=== PATIENT | female | born 1955 | race American Indian/Alaskan Native ===

== ENCOUNTER 2018-02-09 14:47 | Inpatient (IN) | payer BC ==
[2018-02-09] MEDS ORDERED: NACL 0.9% 1000 ML 1,000 ML IV ONE ×2 (15:01→20:53)
--- NOTE | 2018-02-09 15:18 | Emergency Department Report ---
<DARY HEATON - Last Filed: 02/09/18 19:03> ED Abdominal Pain HPI - General Chief Complaint: Abdominal Pain Stated Complaint: BILE OBSTRUCTION/ABD PAIN Time Seen by Provider: 02/09/18 15:08 Source: patient Mode of arrival: Ambulatory Limitations: No Limitations - History of Present Illness Initial Comments: is a 63-year-old female who comes to the emergency room today complaining of abdominal pain. She was just discharged from [facility] today. She states that she is having ongoing pain so she came to [place] [address]. Patient tells me that she had a blockage for which she was admitted on . She tells me that she had a bowel movement today. I have called [facility] and was unable to reach anyone in medical records. However, I was able to reach the NEGRITO on the primary service that was caring for . The NEGRITO can be reached at [phone], this is a maintenance painter. The NEGRITO reports that the patient was in fact admitted for a bowel obstruction AND ILLEUS. She was managed conservatively with NG tube. She was decompressed over the weekend. General surgery was consulted. Patient had a bowel movement today WHICH THE PT TELLS ME WAS RUNNY. She tolerated clear li quids this morning. General surgery signed off her case and cleared her from a surgical standpoint. THe primary team discharged her to home with GI follow-up. When she was discharged she was given a prescription for tramadol. The NEGRITO reports that the patient was using Tylenol inpatient to manage her pain. NEGRITO ALSO REPORTS PT HAS HAD GERD AND WAS ON A PPI. SHE GOT A GI COCKTAIL EARLIER TODAY. A MED RECORD RELEASE FORM HAS BEEN FAXED TO [facility] BUT NO RESPONSE AND NOONE IS ANSWERING THE PHONE. HOME MEDS ALL SHE CAN REMEMBER IS METFORMIN- SHE STATES HER DAUGHTER HAS A LIST OF MEDS IN THE ARE. SHE ALSO STATES THAT SHE HAS HER DC PAPERS IN THE CAR. Of relevance is one patient presented to [facility] on the night of Thursday into Thursday she had severe abdominal pain. She had a CT scan that showed an obstruction. At that time she had been vomiting. MD Complaint: abdominal pain -: Gradual, days(s) Location: diffuse Radiation: none Migration to: no migration Quality: cramping Consistency: constant Improves With: nothing Worsens With: nothing Associated Symptoms: denies other symptoms (NONE AT THE CURRENT TIME) - Related Data LMP (females 10-50): other Allergies Allergy/AdvReac Type Severity Reaction Status Date / Time No Known Allergies Allergy Unverified 02/09/18 15:01 ED Review of Systems Comment: All other systems reviewed and negative Constitutional: denies: chills, fever Eyes: denies: eye pain ENT: denies: ear pain, throat pain Respiratory: denies: cough, orthopnea Cardiovascular: denies: palpitations Endocrine: denies: see HPI Gastrointestinal: as per HPI, abdominal pain. denies: nausea, vomiting, diarrhea, constipation, hematemesis Genitourinary: denies: urgency, dysuria, frequency, hematuria, discharge Musculoskeletal: denies: back pain Skin: denies: rash, lesions Neurological: denies: headache, weakness Psychiatric: denies: anxiety, depression Hematological/Lymphatic: denies: easy bleeding ED Past Medical Hx - Past Medical History Hx Hypertension: Yes Hx Diabetes: Yes Additional medical history: colon cancer 2007 - Surgical History Past Surgical History?: No - Family History Family history: no significant - Social History Smoking Status: Never Smoker ED Physical Exam - General Limitations: No Limitations General appearance: alert - Head Head exam: Present: atraumatic - Eye Eye exam: Present: normal appearance, PERRL Pupils: Present: normal accommodation - ENT ENT exam: Present: normal exam, mucous membranes moist - Neck Neck exam: Present: normal inspection - Respiratory Respiratory exam: Present: normal lung sounds bilaterally - Cardiovascular Cardiovascular Exam: Present: regular rate - GI/Abdominal GI/Abdominal exam: Present: soft, distended, normal bowel sounds - Rectal Rectal exam: Present: deferred - Extremities Exam Extremities exam: Present: normal inspection, full ROM - Back Exam Back exam: Present: normal inspection, full ROM - Neurological Exam Neurological exam: Present: alert, oriented X3 - Psychiatric Psychiatric exam: Present: normal affect, normal mood - Skin Skin exam: Present: warm, dry, intact ED Course - Reevaluation(s) Reevaluation #1: 02/09/18 19:03 [facility] Medical Decision Making - Lab Data Result diagrams: 02/09/18 15:06 02/09/18 15:06 - Radiology Data Radiology results: report reviewed, image reviewed - Medical Decision Making LABS NOTED UA NOTED ABD SERIES SUGGESTIVE OF BOWEL OBSTRUCTION K WAS 3.1 AND HAS BEEN REPLACED. [address] OF ABD W CONTRAST PLAN 1. OBSTRUCTION - ADMIT 2. NO ACUTE PROCESS- DC HOME- PT HAS TRAMADOL FROM [facility] A GI FOLLOW UP. - Differential Diagnosis RO BOWEL OBSTRUCTION OR ILLEUS ED Disposition Clinical Impression: Small bowel obstruction Abdominal pain Qualifiers: Abdominal location: generalized Qualified Code(s): R10.84 - Generalized abdominal pain Disposition: DC-09 OP ADMIT IP TO THIS HOSP Is pt being admited?: No Does the pt Need Aspirin: No Condition: Stable <MARIYA KOWALSKI - Last Filed: 02/09/18 21:33> ED Course - Reevaluation(s) Reevaluation #2: 02/09/18 20:50 Patient has been reexamined by me and patient is consolable with no signs of distress. Reevaluation #3: 02/09/18 20:51 Patient was notified that she has a small bowel obstruction and agrees to the admission plan of care. - Consultations Consultation #1: 02/09/18 20:51 Patient has been consulted with Dr. Garcia (general surgeon) about patient history, physical exam, and labs/CT results and agrees for admission with hospitalist and to place patient nothing by mouth with NG tube of 14 or 16 Turkish. ED Medical Decision Making - Lab Data Result diagrams: 02/09/18 15:06 02/09/18 15:06 - Medical Decision Making This is a 63-year-old female that was signed out to me by Flory Bustillos NP for pending CT results. Patient presents with a small bowel instruction. Obstruction. Patient was consulted with Dr. Garcia and accepted with Dr. Porras hospitalist. Patient put on nothing by mouth. Fluids border. IV fluid has been ordered. NG tube to low suction order. At time of admission, the patient does not seem toxic or ill in appearance. No acute signs of distress noted. Patient agrees to admission treatment plan of care. No further questions noted by the patient. ED Disposition Is pt being admited?: Yes Does the pt Need Aspirin: No <TERRELL MOONEY - Last Filed: 02/10/18 08:14> ED Review of Systems ROS: Stated complaint: BILE OBSTRUCTION/ABD PAIN Other details as noted in HPI ED Course Vital Signs 02/09/18 02/09/18 02/09/18 14:55 21:03 23:01 Temperature 97.9 F 98.5 F Pulse Rate 89 83 Respiratory 18 18 18 Rate Blood Pressure 137/87 Blood Pressure 137/92 [Left] O2 Sat by Pulse 96 97 Oximetry 02/09/18 23:20 Temperature Pulse Rate Respiratory 16 Rate Blood Pressure Blood Pressure [Left] O2 Sat by Pulse Oximetry ED Medical Decision Making - Lab Data Result diagrams: 02/10/18 04:13 02/10/18 04:13 Critical care attestation.: If time is entered above; I have spent that time in minutes in the direct care of this critically ill patient, excluding procedure time. ED Disposition Is pt being admited?: Yes
[2018-02-09 15:45] LABS: Basophils % (Auto) 0.2 % (0.0-1.8); Eosinophils # (Auto) 0.1 K/mm3 (0.0-0.4); Eosinophils % (Auto) 0.9 % (0.0-4.3); Hematocrit 44.7 % (30.3-42.9); Hemoglobin 15.3 gm/dl (10.1-14.3); Lymphocytes # (Auto) 1.2 K/mm3 (1.2-5.4); Mean Corpuscular HGB Conc 34 % (30-34); Mean Corpuscular Hemoglobin 32 pg (28-32); Mean Corpuscular Volume 93 fl (79-97); Monocytes # (Auto) 0.5 K/mm3 (0.0-0.8); Monocytes % (Auto) 8.3 % (0.0-7.3); Platelet Count 179 K/mm3 (140-440); Red Blood Count 4.83 M/mm3 (3.65-5.03); Red Cell Distribution Width 13.3 % (13.2-15.2)
[2018-02-09 16:05] LABS: Alanine Aminotransferase 11 units/L (7-56); Albumin 3.7 g/dL (3.9-5); BUN/Creatinine Ratio 16; Blood Urea Nitrogen 14 mg/dL (7-17); Calcium 8.6 mg/dL (8.4-10.2); Hemolysis Index 10
[2018-02-09] MEDS ORDERED: K-DUR PO ONE (16:08)
[2018-02-09] MEDS ORDERED: LIDOCAINE VISCOUS 2% PO ONE (16:14)
[2018-02-09] MEDS ORDERED: ALUM-MAG HYDROX-SIMETH 200-200-20MG/5ML PO ONE (16:14)
--- NOTE | 2018-02-09 16:52 | XRay Report ---
FINAL REPORT EXAM: XR ABD SERIES W CXR 1V HISTORY: abd pain TECHNIQUE: Abdomen supine and upright with frontal view of the chest PRIORS: None. FINDINGS: No acute pulmonary infiltrate identified. No pleural fluid collection seen. Cardiac and mediastinal c ontours are unremarkable There is marked small-bowel distention primary along the left side of the abdomen with appearing burger sition to the mid to lower small bowel. Small bowel loops measuring up to 5.7 centimeters with multip le fluid levels present. Findings are highly suspicious for small-bowel obstruction. There are no signs for free air Noted is a calcified uterine fibroid IMPRESSION: Findings most consistent acute small bowel obstruction.
[2018-02-09 17:17] LABS: Bilirubin,Urine NEG (Negative); Blood,Urine NEG (Negative); Color,Urine Amber (Yellow); Mucus,Urine FEW /HPF; Urobilinogen,Urine < 2.0 mg/dL (<2.0)
[2018-02-09] MEDS ORDERED: NACL 0.9% IV SCH (19:00)
--- NOTE | 2018-02-09 20:31 | Cat Scan Report ---
FINAL REPORT EXAM: CT ABDOMEN PELVIS W CON HISTORY: abdominal pain TECHNIQUE: CT abdomen and pelvis with intravenous contrast PRIORS: None. FINDINGS: No acute abnormality identified in the lung bases. No focal abnormality identified within the liver parenchyma. The spleen demonstrates normal size and attenuation. No pancreatic abnormalities seen. The kidneys demonstrate symmetric contrast enhancement. No evidence of hydronephrosis. The adrenal glands are unremarkable Abdominal aorta is normal in caliber. No pathologically enlarged lymph nodes are identified. No signs of free fluid or free air Stomach is distended there is fluid within the stomach. There is marked small-bowel distention from the duodenum through the mid to distal small bowel in the right upper quadrant where there is transition to smaller caliber bowel loops. The colon is nondiste nded There is small amount of ascites present within the abdomen. Colon is nondistended. No pericolonic inflammatory change. Urinary bladder is unremarkable. Calcified uterine fibroid is noted. IMPRESSION: Findings consistent with acute small bowel obstruction likely high-grade. There is transition to smal ler loops the point of transition is not definitively identified
[2018-02-09] MEDS ORDERED: MORPHINE IV PRN (20:53)
[2018-02-09] MEDS ORDERED: REGLAN IV PRN (21:40)
[2018-02-09] MEDS ORDERED: TYLENOL PR PRN (21:40)
[2018-02-09] MEDS ORDERED: SODIUM CHLORIDE FLUSH SYRINGE 10 ML IV PRN (21:40)
--- NOTE | 2018-02-09 21:51 | History and Physical Report ---
History of Present Illness Date of examination: 02/09/18 History of present illness: Scattered 4-year-old woman with a history of hypertension, diabetes, history of colon cancer comes to the emergency room with complaints of abdominal pain. She states she feels bloated. Abdominal pain is lower quadrant and at the sides of the abdomen, sharp, constant, no radiation, intensity 7/10, relieved with IV morphine. The patient was just discharged from [place] today, she was admitted on February 06 for bowel obstruction and treated conservatively with NG tube and bowel rest. She was started on clear liquid today which she tolerated, discharged to home. The patient state upon discharge she was still having pain, did not feel well, so after she left [place] she came here for further evaluation. She had a bowel movement today, admits to nausea and vomiting Review of systems Constitutional: no weight loss, chills, fever Ears, eyes, nose, mouth and throat: no nasal congestion, no nasal discharge, no sinus pressure, no vision change, no red eye. Neck: No neck pain or rigidity. Cardiovascular: no palpitations, chest pain Respiratory: no cough, shortness of breath Gastrointestinal: no hematochezia Genitourinary : no frequency , no hematuria Musculoskeletal: no joint swelling or muscle ache Integumentary: no rash, no pruritis Neurological: no parathesias, no focal weakness Endocrine: no cold or heat intolerance, no polyuria or polydipsia Hematologic/Lymphatic: no easy bruising, no easy bleeding, no gland swelling Allergic/Immunologic: no urticaria, no angioedema. PAST MEDICAL HISTORY: hypertension, diabetes, history of colon cancer PAST SURGICAL HISTORY: Part of Colon removal SOCIAL HISTORY: Denies alcohol, drugs, tobacco FAMILY HISTORY: Hypertension Medications and Allergies Allergies Allergy/AdvReac Type Severity Reaction Status Date / Time No Known Allergies Allergy Unverified 02/09/18 15:01 Active Meds: Active Medications Acetaminophen (Tylenol) [address] Q4H PRN PRN Reason: Pain MILD(1-3)/Fever >100.5/WELLS Enoxaparin Sodium (Lovenox) 30 mg SUB-Q QDAY RUDY Sodium Chloride (Nacl 0.9% 1000 Ml) 1,000 mls @ 250 mls/hr IV ONCE ONE Stop: 02/10/18 00:52 Last Admin: 02/09/18 21:00 Dose: 250 mls/hr Documented by: Sodium Chloride (Nacl 0.45% 1000 Ml) 1,000 mls @ 75 mls/hr IV DIRECT RUDY Metoclopramide HCl (Reglan) 10 mg IV Q6H PRN PRN Reason: Nausea And Vomiting Morphine Sulfate (Morphine) 2 mg IV Q4H PRN PRN Reason: Pain, Moderate (4-6) Morphine Sulfate (Morphine) 2 mg IV Q4H PRN PRN Reason: Pain, Moderate (4-6) Ondansetron HCl (Zofran) 4 mg IV Q4H PRN PRN Reason: Nausea And Vomiting Sodium Chloride (Nacl 0.9%) 75 ml IV DIRECT RUDY Sodium Chloride (Sodium Chloride Flush Syringe 10 Ml) 10 ml IV BID RUDY Sodium Chloride (Sodium Chloride Flush Syringe 10 Ml) 10 ml IV PRN PRN PRN Reason: LINE FLUSH Exam - Physical Exam Narrative exam: General Apperance: The patient lying in bed, breathing comfortable HEENT: Normocephalic, atraumatic. Pupils equally round and reactive to light, EOMI, no sclericterus or JVD or thyromegaly or nodule. , no carotid bruit, mucous membranes moist, no exudate or erythema Heart: S1-S2, regular is rhythm Lungs: Clear to auscultation bilaterally, breathing comfortable Abdomen: Decreased bowel sounds, distended, nontender, nondistended, no organomegaly Extremities: No edema cyanosis clubbing Skin: sacral and lower extremity ulcers, no rash, nodule, warm and dry Neuro: cranial nerves 2-12 intact, speech is fluent, motor/sensory intact - Constitutional Vitals: Temp Pulse Resp BP Pulse Ox 98.5 F 83 18 137/92 96 02/09/18 21:03 02/09/18 21:03 02/09/18 21:03 02/09/18 21:03 02/09/18 21:03 Results - Labs CBC & Chem 7: 02/09/18 15:06 02/09/18 15:06 Labs: Abnormal lab results 02/09/18 02/09/18 02/09/18 Range/Units 15:06 15:06 15:11 Hgb 15.3 H (10.1-14.3) gm/dl Hct 44.7 H (30.3-42.9) % [place] % (Auto) 8.3 H (0.0-7.3) % Seg Neutrophils % 70.6 H (40.0-70.0) % Sodium 136 L (137-145) mmol/L Potassium 3.1 L (3.6-5.0) mmol/L Chloride 94.3 L (98-107) mmol/L Glucose 118 H (65-100) mg/dL Alkaline Phosphatase 34 L (35-129) units/L Albumin 3.7 L (3.9-5) g/dL Lipase 93 H (13-60) units/L Ur Specific [place] (1.003-1.030) 02/09/ Range/Units Unknown Hgb (10.1-14.3) gm/dl Hct (30.3-42.9) % [place]key % (Auto) (0.0-7.3) % Seg Neutrophils % (40.0-70.0) % Sodium (137-145) mmol/L Potassium (3.6-5.0) mmol/L Chloride (98-107) mmol/L Glucose (65-100) mg/dL Alkaline Phosphatase (35-129) units/L Albumin (3.9-5) g/dL Lipase (13-60) units/L Ur Specific [place] 1.032 H (1.003-1.030) - Imaging and Cardiology Chest x-ray: image reviewed Abdominal x-ray: report reviewed CT scan - abdomen: report reviewed CT scan - pelvis: report reviewed Assessment and Plan Assessment Small bowel obstruction Dehydration Hypertension Diabetes History of colon cancer Plan Admit to medicine consult surgery Nothing by mouth, bowel rest, start IV fluid IV hydralazine for blood pressure control Check fingersticks and initiate insulin sliding scale DVT prophylaxis
[2018-02-09] MEDS ORDERED: NACL 0.45% 1000 ML 1,000 ML IV SCH (22:00)
[2018-02-09] MEDS ORDERED: D50W (25GM) Syringe IV PRN (22:06)
[2018-02-09] MEDS ORDERED: MORPHINE ONE (22:27)
[2018-02-09] MEDS ORDERED: ZOFRAN ONE (22:32)
[2018-02-09] MEDS: ZOFRAN IV PRN (22:50)
[2018-02-09] MEDS: MORPHINE IV PRN (22:50)
[2018-02-10 04:39] LABS: Basophils % (Auto) 0.3 % (0.0-1.8); Eosinophils # (Auto) 0.1 K/mm3 (0.0-0.4); Eosinophils % (Auto) 1.6 % (0.0-4.3); Hemoglobin 14.5 gm/dl (10.1-14.3); Lymphocytes # (Auto) 1.1 K/mm3 (1.2-5.4); Lymphocytes % (Auto) 18.9 % (13.4-35.0); Mean Corpuscular HGB Conc 33 % (30-34); Mean Corpuscular Hemoglobin 31 pg (28-32); Mean Corpuscular Volume 94 fl (79-97); Monocytes # (Auto) 0.9 K/mm3 (0.0-0.8); Monocytes % (Auto) 15.7 % (0.0-7.3); Platelet Count 184 K/mm3 (140-440); Red Blood Count 4.68 M/mm3 (3.65-5.03); Red Cell Distribution Width 13.2 % (13.2-15.2)
[2018-02-10 04:51] LABS: BUN/Creatinine Ratio 20; Blood Urea Nitrogen 14 mg/dL (7-17); Calcium 8.8 mg/dL (8.4-10.2); Hemolysis Index 6
[2018-02-10] MEDS ORDERED: LOVENOX SUB-Q SCH ×2 (10:00)
[2018-02-10] MEDS: PEPCID IV SCH (10:30)
--- NOTE | 2018-02-10 10:30 | Progress Note ---
Assessment and Plan Assessment and plan: Patient is 63 yo woman with a history of hypertension, diabetes mellitus type 2 and colon cancer in 2007 s/p partial colectomy with a follow up colonoscopy by Dr. Fowler in 2014 (I did call [facility] to verify, but they wouldn't tell me anything else) who presented to [facility] via private vehicle after leaving [facility]. She was admittted on February 06 for SBO and discharge 02/09/18 and she came her immediately after discharge. Patient and daughter state that the NGT keep coming out at [facility] so they discharged her. Patient continued to have abd pain with n/v. CT abd/pelvis with contrast IMPRESSION: Findings consistent with acute small bowel obstruction likely high-grade. There is transition to smaller loops the point of transition is not definitively identified -SBO: bowel rest, ivf, GS followup and NGT -Hypokalemia from ngt/gi losses: replete and recheck -Dehydration: IVF -Hypertension: iv antihypertensives -Diabetes mellitus: ssi -History of colon cancer; collateral info obtained, it appears to be in remission but I called Dr. Angela Eduardo [phone] (she is on vacation so I spoke with Dr. Merida) to verify/last visit was 2016 but last CEA was in 2015 and it was 5 but patient was scheduled to return in 2016 but she missed her appointment, pt did mention this also. Recommends repeat CEA -DVT prophylaxis: sq heparin History Interval history: Patient was seen and examined. Follow-up on current diagnosis of SBO. Overnight uneventful. Patient denies any chest pain, shortness breath, nausea/vomiting or severe headaches. Imaging, nursing note, chart, labs and old chart reviewed. Discussed with patient. Daughter Q at bedside. I called [facility], patient had 2015 c-scope Hospitalist Physical - Physical exam Narrative exam: Gen: ill appearing, NAD, Awake, Alert, Orientated x 3 HEENT: NCAT, EOMI, PERRL, OP with NGT in place Neck: supple, no adenopathy, no thyromegaly, no JVD CVS/Heart: RRR, normal S1S2, pulses present bilaterally Chest/Lungs: bradycardia, Symmetrical chest expansion, good air entry bilaterally GI/Abdomen: soft, midline scar, tympanic, diffuse tenderness, no guarding or rebound /Bladder: no suprapubic tenderness, no CVA or paraspinal tenderness Extermity/Skin: no c/c/e, no obvious rash MSK: FROM x 4 Neuro: CN 2-12 grossly intact, no new focal deficits Psych: calm - Constitutional Vitals: Temp Pulse Resp BP Pulse Ox 98.6 F 48 L 18 155/79 99 02/10/18 07:42 02/10/18 07:42 02/10/18 07:42 02/10/18 07:42 02/10/18 07:42 Results - Labs CBC & Chem 7: 02/10/18 04:13 02/10/18 04:13 Labs: Laboratory Last Values WBC 5.7 K/mm3 (4.5-11.0) 02/10/18 04:13 RBC 4.68 M/mm3 (3.65-5.03) 02/10/18 04:13 Hgb 14.5 gm/dl (10.1-14.3) H 02/10/18 04:13 Hct 44.0 % (30.3-42.9) H 02/10/18 04:13 MCV 94 fl (79-97) 02/10/18 04:13 MCH 31 pg (28-32) 02/10/18 04:13 MCHC 33 % (30-34) 02/10/18 04:13 RDW 13.2 % (13.2-15.2) 02/10/18 04:13 Plt Count 184 K/mm3 (140-440) 02/10/18 04:13 Lymph % (Auto) 18.9 % (13.4-35.0) 02/10/18 04:13 Page % (Auto) 15.7 % (0.0-7.3) H 02/10/18 04:13 Eos % (Auto) 1.6 % (0.0-4.3) 02/10/18 04:13 Baso % (Auto) 0.3 % (0.0-1.8) 02/10/18 04:13 Lymph # 1.1 K/mm3 (1.2-5.4) L 02/10/18 04:13 Page # 0.9 K/mm3 (0.0-0.8) H 02/10/18 04:13 Eos # 0.1 K/mm3 (0.0-0.4) 02/10/18 04:13 Baso # 0.0 K/mm3 (0.0-0.1) 02/10/18 04:13 Seg Neutrophils % 63.5 % (40.0-70.0) 02/10/18 04:13 Seg Neutrophils # 3.6 K/mm3 (1.8-7.7) 02/10/18 04:13 Sodium 134 mmol/L (137-145) L 02/10/18 04:13 Potassium 3.5 mmol/L (3.6-5.0) L 02/10/18 04:13 Chloride 94.3 mmol/L (98-107) L 02/10/18 04:13 Carbon Dioxide 29 mmol/L (22-30) 02/10/18 04:13 Anion Gap 14 mmol/L 02/10/18 04:13 BUN 14 mg/dL (7-17) 02/10/18 04:13 Creatinine 0.7 mg/dL (0.7-1.2) 02/10/18 04:13 Estimated GFR > 60 ml/min 02/10/18 04:13 BUN/Creatinine Ratio 20 % 02/10/18 04:13 Glucose 97 mg/dL (65-100) 02/10/18 04:13 POC Glucose 81 (70-105) 02/10/18 06:20 Calcium 8.8 mg/dL (8.4-10.2) 02/10/18 04:13 Total Bilirubin 0.90 mg/dL (0.1-1.2) 02/09/18 15:06 AST 14 units/L (5-40) 02/09/18 15:06 ALT 11 units/L (7-56) 02/09/18 15:06 Alkaline Phosphatase 34 units/L (35-129) L 02/09/18 15:06 Total Protein 7.3 g/dL (6.3-8.2) 02/09/18 15:06 Albumin 3.7 g/dL (3.9-5) L 02/09/18 15:06 Albumin/Globulin Ratio 1.0 % 02/09/18 15:06 Lipase 93 units/L (13-60) H 02/09/18 15:11 Urine Color Shyanne (Yellow) 02/09/18 Unknown Urine Turbidity Clear (Clear) 02/09/18 Unknown Urine pH 6.0 (5.0-7.0) 02/09/18 Unknown Ur Specific [place] 1.032 (1.003-1.030) H 02/09/18 Unknown Urine Protein 30 mg/dl mg/dL (Negative) 02/09/18 Unknown Urine Glucose (UA) Neg mg/dL (Negative) 02/09/18 Unknown Urine Ketones Tr mg/dL (Negative) 02/09/18 Unknown Urine Blood Neg (Negative) 02/09/18 Unknown Urine Nitrite Neg (Negative) 02/09/18 Unknown Urine Bilirubin Neg (Negative) 02/09/18 Unknown Urine Urobilinogen < 2.0 mg/dL (<2.0) 02/09/18 Unknown Ur Leukocyte Esterase Neg (Negative) 02/09/18 Unknown Urine WBC (Auto) 2.0 /HPF (0.0-6.0) 02/09/18 Unknown Urine RBC (Auto) 3.0 /HPF (0.0-6.0) 02/09/18 Unknown U Epithel Cells (Auto) 5.0 /HPF (0-13.0) 02/09/18 Unknown Urine Mucus Few /HPF 02/09/18 Unknown
[2018-02-10] MEDS: D5W/NS W/KCL 20MEQ 20 MEQ/1,000 ML BAG IV SCH (10:31)
[2018-02-10] MEDS ORDERED: KCL 10MEQ/100ML 10 MEQ/100 ML BAG IV SCH (11:00)
[2018-02-10] MEDS ORDERED: K-DUR PO NR (11:00)
[2018-02-10] MEDS: KCL 10MEQ/100ML 10 MEQ/100 ML BAG IV SCH ×4 (11:15→21:12)
[2018-02-10] MEDS: SODIUM CHLORIDE FLUSH SYRINGE 10 ML IV SCH ×3 (11:16→22:08)
--- NOTE | 2018-02-10 13:29 | Consultation ---
History of Present Illness Consult date: 02/10/18 Chief complaint: abdominal pain, n/v - History of present illness History of present illness: 63 yo F with hx of colon ca s/p partial colectomy presents to ER with c/o upper abdominal pain, bloating, n/v x 4 days. The patient was seen at [facility] for the same and was diagnosed with an "obstruction" and discharged. The patient continued to have symptoms at presented to [facility]. Abdominal pain feels like pressure and does not radiate. NGT placed in ER and after some decompression, patient states pain improved. Emesis was bilious. She had a BM this am which was normal caliber but has not passed flatus. She has never had symptoms like this before. No f/c, cp, sob. Past History Past Medical History: cancer (colon), diabetes, hypertension, hyperlipidemia Past Surgical History: Other (exlap, partial colectomy) Social history: alcohol abuse (3 beers per day x20 yrs). denies: smoking, prescription drug abuse, IV drug use Family history: no significant family history Medications and Allergies Allergies Allergy/AdvReac Type Severity Reaction Status Date / Time No Known Allergies Allergy Unverified 02/09/18 15:01 Home Medications Medication Instructions Recorded Confirmed Last Taken Type Aspirin [Aspir-Low] 81 mg PO DAILY 02/09/18 02/09/18 Unknown History Spironolactone [Aldactone] 50 mg PO DAILY 02/09/18 02/09/18 Unknown History metFORMIN [Glucophage] 500 mg PO BID 02/09/18 02/09/18 Unknown History Active Meds: Active Medications Acetaminophen (Tylenol) 650 mg KS Q4H PRN PRN Reason: Pain MILD(1-3)/Fever >100.5/WELLS Dextrose (D50w (25gm) Syringe) 50 ml IV PRN PRN PRN Reason: Hypoglycemia Enoxaparin Sodium (Lovenox) 40 mg SUB-Q QDAY@1000 [facility] Last Admin: 02/10/18 10:30 Dose: 40 mg Documented by: Famotidine (Pepcid) 20 mg IV QDAY [facility] Last Admin: 02/10/18 10:30 Dose: 20 mg Documented by: Hydralazine HCl (Apresoline) 5 mg IV Q6HR PRN PRN Reason: Hypertension Potassium Chloride/Dextrose/Sod Cl (D5w/Ns W/Kcl 20meq) 20 meq in 1,000 mls @ 125 mls/hr IV DIRECT RUDY Last Admin: 02/10/18 10:31 Dose: 125 mls/hr Documented by: Potassium Chloride (Kcl 10meq/100ml) 10 meq in 100 mls @ 100 mls/hr IV Q1H RUDY Stop: 02/10/18 13:59 Last Admin: 02/10/18 11:15 Dose: 100 mls/hr Documented by: Metoclopramide HCl (Reglan) 10 mg IV Q6H PRN PRN Reason: Nausea And Vomiting Morphine Sulfate (Morphine) 2 mg IV Q4H PRN PRN Reason: Pain, Moderate (4-6) Last Admin: 02/09/18 22:50 Dose: 2 mg Documented by: Ondansetron HCl (Zofran) 4 mg IV Q4H PRN PRN Reason: Nausea And Vomiting Last Admin: 02/09/18 22:50 Dose: 4 mg Documented by: Sodium Chloride (Sodium Chloride Flush Syringe 10 Ml) 10 ml IV BID RUDY Last Admin: 02/10/18 11:16 Dose: 10 ml Documented by: Sodium Chloride (Sodium Chloride Flush Syringe 10 Ml) 10 ml IV PRN PRN PRN Reason: LINE FLUSH Review of Systems All systems: negative (10 pt ROS performed and negative except for that listed in HPI) Exam Vital Signs Temp Pulse Resp BP 97.9 F 89 18 137/87 02/09/18 14:55 02/09/18 14:55 02/09/18 14:55 02/09/18 14:55 Narrative exam: Gen: AAOx3. NAD ENT: NGT in R nare - bilious drainage CV: S1, S2+ resp: even and unlabored Abd: soft, mildly distended and tympanitic in epigastrum, mild TTP in epigastrum. no r/r/g Ext: no c/c/e Results - Labs 02/10/18 04:13 02/10/18 04:13 Abnormal lab results 02/09/18 02/09/18 02/09/18 Range/Units 15:06 15:06 15:11 Hgb 15.3 H (10.1-14.3) gm/dl Hct 44.7 H (30.3-42.9) % [place] % (Auto) 8.3 H (0.0-7.3) % Lymph # (1.2-5.4) K/mm3 [place] # (0.0-0.8) K/mm3 Seg Neutrophils % 70.6 H (40.0-70.0) % Sodium 136 L (137-145) mmol/L Potassium 3.1 L (3.6-5.0) mmol/L Chloride 94.3 L (98-107) mmol/L Glucose 118 H (65-100) mg/dL Alkaline Phosphatase 34 L (35-129) units/L Albumin 3.7 L (3.9-5) g/dL Lipase 93 H (13-60) units/L Ur Specific [place] (1.003-1.030) 02/09/18 02/10/18 02/10/18 Range/Units Unknown 04:13 04:13 Hgb 14.5 H (10.1-14.3) gm/dl Hct 44.0 H (30.3-42.9) % [place] % (Auto) 15.7 H (0.0-7.3) % Lymph # 1.1 L (1.2-5.4) K/mm3 [place] # 0.9 H (0.0-0.8) K/mm3 Seg Neutrophils % (40.0-70.0) % Sodium 134 L (137-145) mmol/L Potassium 3.5 L (3.6-5.0) mmol/L Chloride 94.3 L (98-107) mmol/L Glucose (65-100) mg/dL Alkaline Phosphatase (35-129) units/L Albumin (3.9-5) g/dL Lipase (13-60) units/L Ur Specific [place] 1.032 H (1.003-1.030) Diabetes panel 02/09/18 02/10/18 Range/Units 15:06 04:13 Sodium 136 L 134 L (137-145) mmol/L Potassium 3.1 L 3.5 L (3.6-5.0) mmol/L Chloride 94.3 L 94.3 L (98-107) mmol/L Carbon Dioxide 29 29 (22-30) mmol/L BUN 14 14 (7-17) mg/dL Creatinine 0.9 0.7 (0.7-1.2) mg/dL Glucose 118 H 97 (65-100) mg/dL Calcium 8.6 8.8 (8.4-10.2) mg/dL AST 14 (5-40) units/L ALT 11 (7-56) units/L Alkaline Phosphatase 34 L (35-129) units/L Total Protein 7.3 (6.3-8.2) g/dL Albumin 3.7 L (3.9-5) g/dL Calcium panel 02/09/18 02/10/18 Range/Units 15:06 04:13 Calcium 8.6 8.8 (8.4-10.2) mg/dL Albumin 3.7 L (3.9-5) g/dL Pituitary panel 02/09/18 02/10/18 Range/Units 15:06 04:13 Sodium 136 L 134 L (137-145) mmol/L Potassium 3.1 L 3.5 L (3.6-5.0) mmol/L Chloride 94.3 L 94.3 L (98-107) mmol/L Carbon Dioxide 29 29 (22-30) mmol/L BUN 14 14 (7-17) mg/dL Creatinine 0.9 0.7 (0.7-1.2) mg/dL Glucose 118 H 97 (65-100) mg/dL Calcium 8.6 8.8 (8.4-10.2) mg/dL Adrenal panel 02/09/18 02/10/18 Range/Units 15:06 04:13 Sodium 136 L 134 L (137-145) mmol/L Potassium 3.1 L 3.5 L (3.6-5.0) mmol/L Chloride 94.3 L 94.3 L (98-107) mmol/L Carbon Dioxide 29 29 (22-30) mmol/L BUN 14 14 (7-17) mg/dL Creatinine 0.9 0.7 (0.7-1.2) mg/dL Glucose 118 H 97 (65-100) mg/dL Calcium 8.6 8.8 (8.4-10.2) mg/dL Total Bilirubin 0.90 (0.1-1.2) mg/dL AST 14 (5-40) units/L ALT 11 (7-56) units/L Alkaline Phosphatase 34 L (35-129) units/L Total Protein 7.3 (6.3-8.2) g/dL Albumin 3.7 L (3.9-5) g/dL - Imaging CT scan - abdomen: report reviewed, image reviewed CT scan - pelvis: report reviewed, image reviewed Assessment and Plan 63 yo F with 1. SBO 2. hypokalemia Plan: SBO likely due to adhesions. Patient's symptoms significantly improved after NGT decompression. 1. continue NGT to LIWS 2. strict I/Os 3. NPO/IVF 4. replace K 5. repeat BMP, Mg, Phos in am 6. GI ppx 7. prn pain and nausea control 8. obstruction series in am tomorrow 9. Pt encouraged to be OOB and ambulate as tolerated Thank you, please call with questions
[2018-02-10] MEDS: ZOFRAN IV PRN ×2 (13:32→18:16)
[2018-02-10] MEDS: MORPHINE IV PRN ×2 (13:33→18:17)
[2018-02-11] MEDS: MORPHINE IV PRN ×4 (02:17→21:30)
[2018-02-11] MEDS: D5W/NS W/KCL 20MEQ 20 MEQ/1,000 ML BAG IV SCH ×2 (02:20→12:26)
[2018-02-11] MEDS: ZOFRAN IV PRN ×2 (07:18→21:30)
--- NOTE | 2018-02-11 08:12 | XRay Report ---
ABDOMINAL SERIES WITH CXR THREE VIEWS: 02/11/18 07:00:00 CLINICAL: Followup small bowel obstruction. COMPARISON: 02/09/18 FINDINGS: Supine upright views demonstrate moderate distention of small bowel loops in the upper abdomen but decreased distention when compared to the prior exam. No distal small bowel gas and minimal colon gas in the ascending colon. No pneumoperitoneum. A nasogastric tube tip is in satisfactory position in the distal stomach. Large right sided calcified uterine fibroid. No mass or suspicious calcifications.The bones and soft tissues are unremarkable. An AP upright chest image demonstrates increased right basal platelike atelectasis. The right costophrenic angle is blunted. The right upper lung is clear and the left lung is normally expanded and clear. Normal heart and pulmonary vessels. IMPRESSION: 1. Interval improvement with decreased small bowel distention and no evidence of perforation. 2. Right basal subsegmental atelectasis. 3. No pneumonia or CHF.
[2018-02-11] MEDS: PEPCID IV SCH (09:45)
--- NOTE | 2018-02-11 11:46 | Progress Note ---
Assessment and Plan 63 yo F with 1. SBO Plan: Obstruction series today shows improvement in small bowel dilatation and some air in the right colon. 1. continue NGT to LIWS. The NGT connection was checked and fixed to ensure NGT was working properly. 2. strict I/Os 3. NPO/IVF 4. BMP, Mg, Phos ordered for today, will replace lytes as needed 6. GI ppx - changed to protonix IV 7. prn pain and nausea control 8. repeat obstruction series in am 9. Pt encouraged to be OOB and ambulate as tolerated Thank you, please call with questions Subjective Date of service: 02/11/18 Narrative: Pt seen and examined. c/o abdominal tightness for the last few minutes. NGT canister just changed and hooked back up. No f/c, cp, sob, n/v. She is ambulating. She has passed flatus. Objective Vital Signs - 12hr 02/10/18 02/11/18 02/11/18 23:58 06:14 08:19 Temperature 98.1 F 98.1 F 98.2 F Pulse Rate 62 63 Respiratory 20 20 18 Rate Blood Pressure 126/79 155/84 146/75 O2 Sat by Pulse 97 96 Oximetry - General physical appearance Narrative Exam: Gen; AAOx3. NAD ENT; NGT with light green drainage with some pink tinged fluid CV: S1, S2+ resp: even and unlabored Abd: soft, mild distension in upper abdomen with mild TTP. no r/r/g Ext; no c/c/e - Labs 02/10/18 04:13 02/10/18 04:13
[2018-02-11] MEDS: PROTONIX IV SCH (12:26)
[2018-02-11] MEDS: SODIUM CHLORIDE FLUSH SYRINGE 10 ML IV SCH ×2 (12:28→21:34)
[2018-02-11 13:53] LABS: BUN/Creatinine Ratio 14; Blood Urea Nitrogen 10 mg/dL (7-17); Calcium 8.5 mg/dL (8.4-10.2); Hemolysis Index 49
--- NOTE | 2018-02-11 17:50 | Progress Note ---
Assessment and Plan Assessment and plan: Patient is 63 yo woman with a history of hypertension, diabetes mellitus type 2 and colon cancer in 2007 s/p partial colectomy with a follow up colonoscopy by Dr. Fowler in 2014 (I did call [facility] to verify, but they wouldn't tell me anything else) who presented to [facility] ED via private vehicle after leaving [facility]. She was admittted on February 06 for SBO and discharge 02/09/18 and she came her immediately after discharge. Patient and daughter state that the NGT keep coming out at [facility] so they discharged her. Patient continued to have abd pain with n/v. CT abd/pelvis with contrast IMPRESSION: Findings consistent with acute small bowel obstruction likely high-grade. There is transition to smaller loops the point of transition is not definitively identified -SBO: bowel rest, ivf, GS followup and NGT -Hypokalemia from ngt/gi losses: replete and recheck -Dehydration: IVF -Hypertension: iv antihypertensives -Diabetes mellitus: ssi -History of colon cancer; collateral info obtained, it appears to be in remission but I called Dr. Angela Eduardo [phone] (she is on vacation so I spoke with Dr. Merida) to verify/last visit was 2016 but last CEA was in 2015 and it was 5 but patient was scheduled to return in 2016 but she missed her appointment, pt did mention this also. Recommends repeat CEA -DVT prophylaxis: sq heparin History Interval history: Patient was seen and examined. Follow-up on current diagnosis of SBO. Overnight uneventful. Patient denies any chest pain, shortness breath, nausea/vomiting or severe headaches. Imaging, nursing note, chart, labs and old chart reviewed. Discussed with patient. Daughter Q at bedside. I called [facility], patient had 2015 c-scope Hospitalist Physical - Physical exam Narrative exam: Gen: ill appearing, NAD, Awake, Alert, Orientated x 3 HEENT: NCAT, EOMI, PERRL, OP with NGT in place Neck: supple, no adenopathy, no thyromegaly, no JVD CVS/Heart: RRR, normal S1S2, pulses present bilaterally Chest/Lungs: bradycardia, Symmetrical chest expansion, good air entry bilaterally GI/Abdomen: soft, midline scar, tympanic, diffuse tenderness, no guarding or rebound /Bladder: no suprapubic tenderness, no CVA or paraspinal tenderness Extermity/Skin: no c/c/e, no obvious rash MSK: FROM x 4 Neuro: CN 2-12 grossly intact, no new focal deficits Psych: calm - Constitutional Vitals: Temp Pulse Resp BP Pulse Ox 97.8 F 56 L 18 144/76 95 02/11/18 16:12 02/11/18 16:12 02/11/18 16:12 02/11/18 16:12 02/11/18 16:12 Results - Labs CBC & Chem 7: 02/10/18 04:13 02/11/18 13:05 Labs: Laboratory Last Values WBC 5.7 K/mm3 (4.5-11.0) 02/10/18 04:13 RBC 4.68 M/mm3 (3.65-5.03) 02/10/18 04:13 Hgb 14.5 gm/dl (10.1-14.3) H 02/10/18 04:13 Hct 44.0 % (30.3-42.9) H 02/10/18 04:13 MCV 94 fl (79-97) 02/10/18 04:13 MCH 31 pg (28-32) 02/10/18 04:13 MCHC 33 % (30-34) 02/10/18 04:13 RDW 13.2 % (13.2-15.2) 02/10/18 04:13 Plt Count 184 K/mm3 (140-440) 02/10/18 04:13 Lymph % (Auto) 18.9 % (13.4-35.0) 02/10/18 04:13 [place] % (Auto) 15.7 % (0.0-7.3) H 02/10/18 04:13 Eos % (Auto) 1.6 % (0.0-4.3) 02/10/18 04:13 Baso % (Auto) 0.3 % (0.0-1.8) 02/10/18 04:13 Lymph # 1.1 K/mm3 (1.2-5.4) L 02/10/18 04:13 [place] # 0.9 K/mm3 (0.0-0.8) H 02/10/18 04:13 Eos # 0.1 K/mm3 (0.0-0.4) 02/10/18 04:13 Baso # 0.0 K/mm3 (0.0-0.1) 02/10/18 04:13 Seg Neutrophils % 63.5 % (40.0-70.0) 02/10/18 04:13 Seg Neutrophils # 3.6 K/mm3 (1.8-7.7) 02/10/18 04:13 Sodium 138 mmol/L (137-145) 02/11/18 13:05 Potassium 4.1 mmol/L (3.6-5.0) 02/11/18 13:05 Chloride 101.3 mmol/L (98-107) 02/11/18 13:05 Carbon Dioxide 23 mmol/L (22-30) 02/11/18 13:05 Anion Gap 18 mmol/L 02/11/18 13:05 BUN 10 mg/dL (7-17) 02/11/18 13:05 Creatinine 0.7 mg/dL (0.7-1.2) 02/11/18 13:05 Estimated GFR > 60 ml/min 02/11/18 13:05 BUN/Creatinine Ratio 14 % 02/11/18 13:05 Glucose 101 mg/dL (65-100) H 02/11/18 13:05 POC Glucose 129 (70-105) H 02/11/18 06:28 Calcium 8.5 mg/dL (8.4-10.2) 02/11/18 13:05 Phosphorus 1.60 mg/dL (2.5-4.5) L 02/11/18 13:05 Magnesium 2.20 mg/dL (1.7-2.3) 02/11/18 13:05 Total Bilirubin 0.90 mg/dL (0.1-1.2) 02/09/18 15:06 AST 14 units/L (5-40) 02/09/18 15:06 ALT 11 units/L (7-56) 02/09/18 15:06 Alkaline Phosphatase 34 units/L (35-129) L 02/09/18 15:06 Total Protein 7.3 g/dL (6.3-8.2) 02/09/18 15:06 Albumin 3.7 g/dL (3.9-5) L 02/09/18 15:06 Albumin/Globulin Ratio 1.0 % 02/09/18 15:06 Lipase 93 units/L (13-60) H 02/09/18 15:11 Urine Color [place] (Yellow) 02/09/18 Unknown Urine Turbidity Clear (Clear) 02/09/18 Unknown Urine pH 6.0 (5.0-7.0) 02/09/18 Unknown Ur Specific [place] 1.032 (1.003-1.030) H 02/09/18 Unknown Urine Protein 30 mg/dl mg/dL (Negative) 02/09/18 Unknown Urine Glucose (UA) Neg mg/dL (Negative) 02/09/18 Unknown Urine Ketones Tr mg/dL (Negative) 02/09/18 Unknown Urine Blood Neg (Negative) 02/09/18 Unknown Urine Nitrite Neg (Negative) 02/09/18 Unknown Urine Bilirubin Neg (Negative) 02/09/18 Unknown Urine Urobilinogen < 2.0 mg/dL (<2.0) 02/09/18 Unknown Ur Leukocyte Esterase Neg (Negative) 02/09/18 Unknown Urine WBC (Auto) 2.0 /HPF (0.0-6.0) 02/09/18 Unknown Urine RBC (Auto) 3.0 /HPF (0.0-6.0) 02/09/18 Unknown U Epithel Cells (Auto) 5.0 /HPF (0-13.0) 02/09/18 Unknown Urine Mucus Few /HPF 02/09/18 Unknown
[2018-02-12] MEDS: D5W/NS W/KCL 20MEQ 20 MEQ/1,000 ML BAG IV SCH (04:59)
[2018-02-12] MEDS: APRESOLINE IV PRN ×2 (05:14→13:08)
[2018-02-12] MEDS ORDERED: SODIUM PHOSPHATE 30 MMOL in NACL 0.9% 500 ML 500 ML IV ONE (09:15)
--- NOTE | 2018-02-12 10:22 | XRay Report ---
ABDOMINAL SERIES: History: Small bowel obstruction. Erect chest film shows no acute or significant changes involving the heart or lung khalil. The nasogastric tube terminates in the antrum of the stomach. Mildly dilated and edematous loops of small bowel throughout the abdomen appear unchanged since yesterday's exam. There is a normal gas and stool in the colon. No evidence for free air or space occupying mass. IMPRESSION: No change.
[2018-02-12] MEDS: SODIUM CHLORIDE FLUSH SYRINGE 10 ML IV SCH ×2 (10:40→21:04)
[2018-02-12] MEDS: PROTONIX IV SCH (10:49)
--- NOTE | 2018-02-12 11:30 | Progress Note ---
Assessment and Plan 63 yo F with 1. SBO - resolving 2. hypophosphatemia Plan: Overall clinically improving. Minimal NGT output and now is gastric in nature. + Flatus. Abdominal pain is improved. Obstruction series today shows mild dilatation of small bowel with normal air and stool in colon 1. will perform NGT clamp trial. Nursing instructed to call with output 2. strict I/Os 3. start clear liquids if patient passes clamp trial, will advance slowly 4. replace lytes 5. GI ppx - protonix IV 6. prn pain and nausea control 7. Pt encouraged to be OOB and ambulate as tolerated Thank you, please call with questions Subjective Date of service: 02/12/18 Narrative: Pt seen and examined. Feels better, c/o intermittent cramping abdominal pain. No n/v. + Flatus, no BM. No f/c Objective Vital Signs - 12hr 02/12/18 02/12/18 02/12/18 00:05 04:37 05:14 Temperature 97.9 F 98.0 F Pulse Rate 58 L 56 L Respiratory 20 20 Rate Blood Pressure 135/85 177/86 170/101 O2 Sat by Pulse 96 97 Oximetry 02/12/18 02/12/18 06:24 07:15 Temperature 98.4 F Pulse Rate 77 Respiratory 18 Rate Blood Pressure 142/83 146/89 O2 Sat by Pulse 99 Oximetry - General physical appearance Narrative Exam: Gen; AAOx3. NAD ENT; NGT with clear brown gastric drainage CV: S1, S2+ resp: even and unlabored Abd: soft, mild distension in upper abdomen without TTP. + bowel sounds. no r/r/g Ext; no c/c/e - Labs 02/10/18 04:13 02/11/18 13:05 Diabetes panel 02/11/18 Range/Units 13:05 Sodium 138 (137-145) mmol/L Potassium 4.1 (3.6-5.0) mmol/L Chloride 101.3 (98-107) mmol/L Carbon Dioxide 23 (22-30) mmol/L BUN 10 (7-17) mg/dL Creatinine 0.7 (0.7-1.2) mg/dL Glucose 101 H (65-100) mg/dL Calcium 8.5 (8.4-10.2) mg/dL Calcium panel 02/11/18 Range/Units 13:05 Calcium 8.5 (8.4-10.2) mg/dL Phosphorus 1.60 L (2.5-4.5) mg/dL Pituitary panel 02/11/18 Range/Units 13:05 Sodium 138 (137-145) mmol/L Potassium 4.1 (3.6-5.0) mmol/L Chloride 101.3 (98-107) mmol/L Carbon Dioxide 23 (22-30) mmol/L BUN 10 (7-17) mg/dL Creatinine 0.7 (0.7-1.2) mg/dL Glucose 101 H (65-100) mg/dL Calcium 8.5 (8.4-10.2) mg/dL Adrenal panel 02/11/18 Range/Units 13:05 Sodium 138 (137-145) mmol/L Potassium 4.1 (3.6-5.0) mmol/L Chloride 101.3 (98-107) mmol/L Carbon Dioxide 23 (22-30) mmol/L BUN 10 (7-17) mg/dL Creatinine 0.7 (0.7-1.2) mg/dL Glucose 101 H (65-100) mg/dL Calcium 8.5 (8.4-10.2) mg/dL
--- NOTE | 2018-02-12 11:48 | Progress Note ---
Assessment and Plan Assessment and plan: Patient is 63 yo woman with a history of hypertension, diabetes mellitus type 2 and colon cancer in 2007 s/p partial colectomy with a follow up colonoscopy by Dr. Fowler in 2014 (I did call [facility] to verify, but they wouldn't tell me anything else) who presented to [facility] ED via private vehicle after leaving [facility]. She was admittted on February 06 for SBO and discharge 02/09/18 and she came her immediately after discharge. Patient and daughter state that the NGT keep coming out at [facility] so they discharged her. Patient continued to have abd pain with n/v. CT abd/pelvis with contrast IMPRESSION: Findings consistent with acute small bowel obstruction likely high-grade. There is transition to smaller loops the point of transition is not definitively identified -SBO: General Surgeon is managing -Hypokalemia from ngt/gi losses: repleted and recheck -Dehydration: IVF -Hypertension: iv antihypertensives -Hypophosphatemia: replete -Diabetes mellitus: ssi -History of colon cancer; collateral info obtained, it appears to be in remission but I called Dr. Angela Eduardo [phone] (she is on vacation so I spoke with Dr. Merida) to verify/last visit was 2016 but last CEA was in 2015 and it was 5 but patient was scheduled to return in 2016 but she missed her appointment, pt did mention this also. Recommends repeat CEA -DVT prophylaxis: sq heparin History Interval history: Patient was seen and examined. Follow-up on current diagnosis of SBO. Overnight uneventful. Patient denies any chest pain, shortness breath, nausea/vomiting or severe headaches. Imaging, nursing note, chart, labs and old chart reviewed. Discussed with patient. Daughter Q at bedside. I called [facility], patient had 2015 c-scope Hospitalist Physical - Physical exam Narrative exam: Gen: ill appearing, NAD, Awake, Alert, Orientated x 3 HEENT: NCAT, EOMI, PERRL, OP with NGT in place Neck: supple, no adenopathy, no thyromegaly, no JVD CVS/Heart: RRR, normal S1S2, pulses present bilaterally Chest/Lungs: bradycardia, Symmetrical chest expansion, good air entry bilaterally GI/Abdomen: soft, midline scar, tympanic, diffuse tenderness, no guarding or rebound /Bladder: no suprapubic tenderness, no CVA or paraspinal tenderness Extermity/Skin: no c/c/e, no obvious rash MSK: FROM x 4 Neuro: CN 2-12 grossly intact, no new focal deficits Psych: calm - Constitutional Vitals: Temp Pulse Resp BP Pulse Ox 98.4 F 77 18 146/89 99 02/12/18 07:15 02/12/18 07:15 02/12/18 07:15 02/12/18 07:15 02/12/18 07:15 Results - Labs CBC & Chem 7: 02/10/18 04:13 02/11/18 13:05 Labs: Laboratory Last Values WBC 5.7 K/mm3 (4.5-11.0) 02/10/18 04:13 RBC 4.68 M/mm3 (3.65-5.03) 02/10/18 04:13 Hgb 14.5 gm/dl (10.1-14.3) H 02/10/18 04:13 Hct 44.0 % (30.3-42.9) H 02/10/18 04:13 MCV 94 fl (79-97) 02/10/18 04:13 MCH 31 pg (28-32) 02/10/18 04:13 MCHC 33 % (30-34) 02/10/18 04:13 RDW 13.2 % (13.2-15.2) 02/10/18 04:13 Plt Count 184 K/mm3 (140-440) 02/10/18 04:13 Lymph % (Auto) 18.9 % (13.4-35.0) 02/10/18 04:13 [place] % (Auto) 15.7 % (0.0-7.3) H 02/10/18 04:13 Eos % (Auto) 1.6 % (0.0-4.3) 02/10/18 04:13 Baso % (Auto) 0.3 % (0.0-1.8) 02/10/18 04:13 Lymph # 1.1 K/mm3 (1.2-5.4) L 02/10/18 04:13 [place] # 0.9 K/mm3 (0.0-0.8) H 02/10/18 04:13 Eos # 0.1 K/mm3 (0.0-0.4) 02/10/18 04:13 Baso # 0.0 K/mm3 (0.0-0.1) 02/10/18 04:13 Seg Neutrophils % 63.5 % (40.0-70.0) 02/10/18 04:13 Seg Neutrophils # 3.6 K/mm3 (1.8-7.7) 02/10/18 04:13 Sodium 138 mmol/L (137-145) 02/11/18 13:05 Potassium 4.1 mmol/L (3.6-5.0) 02/11/18 13:05 Chloride 101.3 mmol/L (98-107) 02/11/18 13:05 Carbon Dioxide 23 mmol/L (22-30) 02/11/18 13:05 Anion Gap 18 mmol/L 02/11/18 13:05 BUN 10 mg/dL (7-17) 02/11/18 13:05 Creatinine 0.7 mg/dL (0.7-1.2) 02/11/18 13:05 Estimated GFR > 60 ml/min 02/11/18 13:05 BUN/Creatinine Ratio 14 % 02/11/18 13:05 Glucose 101 mg/dL (65-100) H 02/11/18 13:05 POC Glucose 92 (70-105) 02/12/18 11:27 Calcium 8.5 mg/dL (8.4-10.2) 02/11/18 13:05 Phosphorus 1.60 mg/dL (2.5-4.5) L 02/11/18 13:05 Magnesium 2.20 mg/dL (1.7-2.3) 02/11/18 13:05 Total Bilirubin 0.90 mg/dL (0.1-1.2) 02/09/18 15:06 AST 14 units/L (5-40) 02/09/18 15:06 ALT 11 units/L (7-56) 02/09/18 15:06 Alkaline Phosphatase 34 units/L (35-129) L 02/09/18 15:06 Total Protein 7.3 g/dL (6.3-8.2) 02/09/18 15:06 Albumin 3.7 g/dL (3.9-5) L 02/09/18 15:06 Albumin/Globulin Ratio 1.0 % 02/09/18 15:06 Lipase 93 units/L (13-60) H 02/09/18 15:11 Urine Color [place]yan[place] (Yellow) 02/09/18 Unknown Urine Turbidity Clear (Clear) 02/09/18 Unknown Urine pH 6.0 (5.0-7.0) 02/09/18 Unknown Ur Specific [place] 1.032 (1.003-1.030) H 02/09/18 Unknown Urine Protein 30 mg/dl mg/dL (Negative) 02/09/18 Unknown Urine Glucose (UA) Neg mg/dL (Negative) 02/09/18 Unknown Urine Ketones Tr mg/dL (Negative) 02/09/18 Unknown Urine Blood Neg (Negative) 02/09/18 Unknown Urine Nitrite Neg (Negative) 02/09/18 Unknown Urine Bilirubin Neg (Negative) 02/09/18 Unknown Urine Urobilinogen < 2.0 mg/dL (<2.0) 02/09/18 Unknown Ur Leukocyte Esterase Neg (Negative) 02/09/18 Unknown Urine WBC (Auto) 2.0 /HPF (0.0-6.0) 02/09/18 Unknown Urine RBC (Auto) 3.0 /HPF (0.0-6.0) 02/09/18 Unknown U Epithel Cells (Auto) 5.0 /HPF (0-13.0) 02/09/18 Unknown Urine Mucus Few /HPF 02/09/18 Unknown
[2018-02-12] MEDS ORDERED: KPHOS 15 MMOL in NACL 0.9% 250ML 250 ML IV ONE (12:00)
[2018-02-12] MEDS: HEPARIN SUB-Q SCH ×3 (13:09→20:59)
[2018-02-13 05:25] LABS: Hematocrit 41.6 % (30.3-42.9); Hemoglobin 13.8 gm/dl (10.1-14.3); Mean Corpuscular HGB Conc 33 % (30-34); Mean Corpuscular Hemoglobin 31 pg (28-32); Mean Corpuscular Volume 92 fl (79-97); Platelet Count 260 K/mm3 (140-440); Red Blood Count 4.51 M/mm3 (3.65-5.03); Red Cell Distribution Width 13.4 % (13.2-15.2)
[2018-02-13 05:39] LABS: BUN/Creatinine Ratio 9; Blood Urea Nitrogen 6 mg/dL (7-17); Calcium 9.2 mg/dL (8.4-10.2); Hemolysis Index 31
[2018-02-13] MEDS: SODIUM CHLORIDE FLUSH SYRINGE 10 ML IV SCH ×2 (10:00→22:43)
[2018-02-13] MEDS: PROTONIX IV SCH (10:23)
[2018-02-13] MEDS: HEPARIN SUB-Q SCH ×2 (10:23→22:42)
[2018-02-13] MEDS ORDERED: KCL IV SCH (10:30)
[2018-02-13] MEDS ORDERED: D5NS IV SCH (10:30)
--- NOTE | 2018-02-13 13:56 | Progress Note ---
Assessment and Plan - Patient Problems (1) Small bowel obstruction Current Visit: Yes Status: Acute Plan to address problem: Pt stable. Issue is resolving. Will advance to full liquid diet and continue for a few days. Liquid bowel movements are expected initially as the SBO resolves. It should firm up soon. Pt asking about going home. I requested that she stay today to see how she tolerates the full liquid diet. Tomorrow, we can reassess her for discharge. As she took a fair amount of PO intake and she appears well hydrated, will d/c IVF. Pt was in agreement with the plan. Please call with questions. Time=10min Subjective Date of service: 02/13/18 Patient Reports: Positive: feels better, pain is less, tolerating liquids well, bowel movement (loose), diarrhea, afebrile. Negative: nausea, vomiting Objective Vital Signs - 12hr 02/13/18 02/13/18 02/13/18 04:06 07:23 11:30 Temperature 98.6 F 98.4 F 98.7 F Pulse Rate 62 62 55 L Respiratory 20 18 18 Rate Blood Pressure 143/90 Blood Pressure 153/78 138/86 [Left] O2 Sat by Pulse 98 98 98 Oximetry - General physical appearance no distress, no pain, other (sitting up in bed. Looks well) - Respiratory normal expansion, normal respiratory effort - Abdomen soft, tender (very minimal in epigastric area), bowel sounds normal, distended (minimal ), not masses, not rebound, not guarding, not rigid - Integumentary no rash, no growths, no abnormal pigmentation - Psychiatric oriented to time, oriented to person, oriented to place, speech is normal, memory intact - Labs 02/13/18 05:09 02/13/18 05:09 Diabetes panel 02/13/18 Range/Units 05:09 Sodium 135 L (137-145) mmol/L Potassium 3.7 (3.6-5.0) mmol/L Chloride 99.8 (98-107) mmol/L Carbon Dioxide 21 L (22-30) mmol/L BUN 6 L (7-17) mg/dL Creatinine 0.7 (0.7-1.2) mg/dL Glucose 100 (65-100) mg/dL Calcium 9.2 (8.4-10.2) mg/dL Calcium panel 02/13/18 Range/Units 05:09 Calcium 9.2 (8.4-10.2) mg/dL Pituitary panel 02/13/18 Range/Units 05:09 Sodium 135 L (137-145) mmol/L Potassium 3.7 (3.6-5.0) mmol/L Chloride 99.8 (98-107) mmol/L Carbon Dioxide 21 L (22-30) mmol/L BUN 6 L (7-17) mg/dL Creatinine 0.7 (0.7-1.2) mg/dL Glucose 100 (65-100) mg/dL Calcium 9.2 (8.4-10.2) mg/dL Adrenal panel 02/13/18 Range/Units 05:09 Sodium 135 L (137-145) mmol/L Potassium 3.7 (3.6-5.0) mmol/L Chloride 99.8 (98-107) mmol/L Carbon Dioxide 21 L (22-30) mmol/L BUN 6 L (7-17) mg/dL Creatinine 0.7 (0.7-1.2) mg/dL Glucose 100 (65-100) mg/dL Calcium 9.2 (8.4-10.2) mg/dL
--- NOTE | 2018-02-13 15:02 | Progress Note ---
Assessment and Plan Assessment and plan: Patient is 63 yo woman with a history of hypertension, diabetes mellitus type 2 and colon cancer in 2007 s/p partial colectomy with a follow up colonoscopy by Dr. Fowler in 2014 (I did call [facility] to verify, but they wouldn't tell me anything else) who presented to [facility] ED via private vehicle after leaving [facility]. She was admittted on February 06 for SBO and discharge 02/09/18 and she came her immediately after discharge. Patient and daughter state that the NGT keep coming out at [facility] so they discharged her. Patient continued to have abd pain with n/v. CT abd/pelvis with contrast IMPRESSION: Findings consistent with acute small bowel obstruction likely high-grade. There is transition to smaller loops the point of transition is not definitively identified -SBO: General Surgeon is managing -Hypokalemia from ngt/gi losses: repleted and recheck -Dehydration: IVF -Hypertension: iv antihypertensives -Hypophosphatemia: replete -Diabetes mellitus: ssi -History of colon cancer; collateral info obtained, it appears to be in remission but I called Dr. Angela Eduardo [phone] (she is on vacation so I spoke with Dr. Merida) to verify/last visit was 2016 but last CEA was in 2015 and it was 5 but patient was scheduled to return in 2016 but she missed her appointment, pt did mention this also. Recommends repeat CEA -DVT prophylaxis: sq heparin History Interval history: Review of systems Constitutional: No fevers, no malaise, no joint pains CVS: No chest pain, no orthopnea, no dyspnea on exertion, no pedal edema GI: No abdominal pain, no diarrhea, no vomiting, no constipation Respiratory: No shortness of breath, no wheezing, no coughing Hospitalist Physical - Physical exam Narrative exam: General.: Appears well, no distress, nontoxic HEENT: Moist mucous membranes, extraocular muscles intact, no lymphadenopathy Neck: supple Cardiac: S1-S2 heard Lungs: clear to auscultation bilaterally Abdomen: soft , nontender, nondistended, bowel sounds positive Extremities: no edema clubbing or cyanosis Skin: no rash or lesions Neurologic: no gross focal deficits Psych: appropriate behavior, appropriate mood, corporative, judgment intact - Constitutional Vitals: Temp Pulse Resp BP Pulse Ox 98.7 F 55 L 18 138/86 98 02/13/18 11:30 02/13/18 11:30 02/13/18 11:30 02/13/18 11:30 02/13/18 11:30 Results - Labs CBC & Chem 7: 02/13/18 05:09 02/13/18 05:09 Labs: Laboratory Last Values WBC 5.8 K/mm3 (4.5-11.0) 02/13/18 05:09 RBC 4.51 M/mm3 (3.65-5.03) 02/13/18 05:09 Hgb 13.8 gm/dl (10.1-14.3) 02/13/18 05:09 Hct 41.6 % (30.3-42.9) 02/13/18 05:09 MCV 92 fl (79-97) 02/13/18 05:09 MCH 31 pg (28-32) 02/13/18 05:09 MCHC 33 % (30-34) 02/13/18 05:09 RDW 13.4 % (13.2-15.2) 02/13/18 05:09 Plt Count 260 K/mm3 (140-440) 02/13/18 05:09 Lymph % (Auto) 18.9 % (13.4-35.0) 02/10/18 04:13 [place] % (Auto) 15.7 % (0.0-7.3) H 02/10/18 04:13 Eos % (Auto) 1.6 % (0.0-4.3) 02/10/18 04:13 Baso % (Auto) 0.3 % (0.0-1.8) 02/10/18 04:13 Lymph # 1.1 K/mm3 (1.2-5.4) L 02/10/18 04:13 [place] # 0.9 K/mm3 (0.0-0.8) H 02/10/18 04:13 Eos # 0.1 K/mm3 (0.0-0.4) 02/10/18 04:13 Baso # 0.0 K/mm3 (0.0-0.1) 02/10/18 04:13 Seg Neutrophils % 63.5 % (40.0-70.0) 02/10/18 04:13 Seg Neutrophils # 3.6 K/mm3 (1.8-7.7) 02/10/18 04:13 Sodium 135 mmol/L (137-145) L 02/13/18 05:09 Potassium 3.7 mmol/L (3.6-5.0) 02/13/18 05:09 Chloride 99.8 mmol/L (98-107) 02/13/18 05:09 Carbon Dioxide 21 mmol/L (22-30) L 02/13/18 05:09 Anion Gap 18 mmol/L 02/13/18 05:09 BUN 6 mg/dL (7-17) L 02/13/18 05:09 Creatinine 0.7 mg/dL (0.7-1.2) 02/13/18 05:09 Estimated GFR > 60 ml/min 02/13/18 05:09 BUN/Creatinine Ratio 9 % 02/13/18 05:09 Glucose 100 mg/dL (65-100) 02/13/18 05:09 POC Glucose 105 (70-105) 02/13/18 11:33 Calcium 9.2 mg/dL (8.4-10.2) 02/13/18 05:09 Phosphorus 1.60 mg/dL (2.5-4.5) L 02/11/18 13:05 Magnesium 1.70 mg/dL (1.7-2.3) 02/13/18 05:09 Total Bilirubin 0.90 mg/dL (0.1-1.2) 02/09/18 15:06 AST 14 units/L (5-40) 02/09/18 15:06 ALT 11 units/L (7-56) 02/09/18 15:06 Alkaline Phosphatase 34 units/L (35-129) L 02/09/18 15:06 Total Protein 7.3 g/dL (6.3-8.2) 02/09/18 15:06 Albumin 3.7 g/dL (3.9-5) L 02/09/18 15:06 Albumin/Globulin Ratio 1.0 % 02/09/18 15:06 Lipase 93 units/L (13-60) H 02/09/18 15:11 Urine Color [place] (Yellow) 02/09/18 Unknown Urine Turbidity Clear (Clear) 02/09/18 Unknown Urine pH 6.0 (5.0-7.0) 02/09/18 Unknown Ur Specific [place] 1.032 (1.003-1.030) H 02/09/18 Unknown Urine Protein 30 mg/dl mg/dL (Negative) 02/09/18 Unknown Urine Glucose (UA) Neg mg/dL (Negative) 02/09/18 Unknown Urine Ketones Tr mg/dL (Negative) 02/09/18 Unknown Urine Blood Neg (Negative) 02/09/18 Unknown Urine Nitrite Neg (Negative) 02/09/18 Unknown Urine Bilirubin Neg (Negative) 02/09/18 Unknown Urine Urobilinogen < 2.0 mg/dL (<2.0) 02/09/18 Unknown Ur Leukocyte Esterase Neg (Negative) 02/09/18 Unknown Urine WBC (Auto) 2.0 /HPF (0.0-6.0) 02/09/18 Unknown Urine RBC (Auto) 3.0 /HPF (0.0-6.0) 02/09/18 Unknown U Epithel Cells (Auto) 5.0 /HPF (0-13.0) 02/09/18 Unknown Urine Mucus Few /HPF 02/09/18 Unknown
[2018-02-13] MEDS: ZOFRAN IV PRN (22:42)
[2018-02-13] MEDS: MORPHINE IV PRN (22:42)
[2018-02-14] MEDS: HEPARIN SUB-Q SCH (10:00)
[2018-02-14] MEDS: PROTONIX IV SCH (10:13)
[2018-02-14] MEDS: SODIUM CHLORIDE FLUSH SYRINGE 10 ML IV SCH (10:17)
--- NOTE | 2018-02-14 12:45 | Progress Note ---
Assessment and Plan 63 yo F with 1. SBO Plan: Patient is asymptomatic and tolerating a diet, having bowel function, no pain. 1. continue full liquid diet for the next few days, I explained this to the patient. 2. ok to discharge home 3. patient instructed to return to ER if she starts to have abdominal pain, n/v Thank you, please call with questions Subjective Date of service: 02/14/18 Narrative: Pt seen and examined. No complaints. No n/v, f/c, abdominal pain. Some loose BMs. Tolerating full liquids diet without difficulty. Objective Vital Signs - 12hr 02/14/18 02/14/18 02/14/18 04:58 07:00 07:11 Temperature 98.7 F 98.4 F Pulse Rate 79 75 72 Respiratory 17 Rate Blood Pressure 128/91 Blood Pressure 148/88 [Left] O2 Sat by Pulse 98 100 Oximetry - General physical appearance Narrative Exam: Gen: AAOx3. NAD CV: s1, s2+ resp: even and unlabored Abd: soft, NT, ND. no r/r/g Ext: no c/c/e - Labs 02/13/18 05:09 02/13/18 05:09
--- NOTE | 2018-02-14 14:00 | Discharge Summary ---
Providers - Providers Date of Admission: 02/09/18 21:40 Attending physician: TAMIKO ANGULO MD 02/09/18 20:54 Consult to Physician [CONS] Routine Comment: Ino spoke with Dr. Kunz @ 2036 Consulting Provider: BECKY KUNZ Physician Instructions: Reason For Exam: small bowel obstruction Primary care physician: OIL EXTRACTOR Hospitalization Condition: Stable Hospital course: Patient is 63 yo woman with a history of hypertension, diabetes mellitus type 2 and colon cancer in 2007 s/p partial colectomy with a follow up colonoscopy by Dr. Fowler in 2014 (I did call [facility] to verify, but they wouldn't tell me anything else) who presented to [facility] ED via private vehicle after leaving [facility]. She was admittted on February 06 for SBO and discharge 02/09/18 and she came her immediately after discharge. Patient and daughter state that the NGT keep coming out at [facility] so they discharged her. Patient continued to have abd pain with n/v. CT abd/pelvis with contrast IMPRESSION: Findings consistent with acute small bowel obstruction likely high-grade. There is transition to smaller loops the point of transition is not definitively identified -SBO: General Surgeon is managing -Hypokalemia from ngt/gi losses: repleted and recheck -Dehydration: IVF -Hypertension: iv antihypertensives -Hypophosphatemia: replete -Diabetes mellitus: ssi -History of colon cancer; collateral info obtained, it appears to be in remission but I called Dr. Angela Eduardo [phone] (she is on vacation so I spoke with Dr. Merida) to verify/last visit was 2016 but last CEA was in 2015 and it was 5 but patient was scheduled to return in 2016 but she missed her appointment, pt did mention this also. Recommends repeat CEA -DVT prophylaxis: sq heparin Disposition: DC-30 STILL A PATIENT Exam - Constitutional Vitals: Temp Pulse Resp BP Pulse Ox 98.4 F 72 17 148/88 100 02/14/18 07:00 02/14/18 07:11 02/14/18 04:58 02/14/18 07:00 02/14/18 07:11 Plan Follow up with: BECKY KUNZ DO [Staff Physician] - 7 Days PRIMARY CARE, [Primary Care Provider] - 3-5 Days Prescriptions: Ondansetron [Zofran Odt] 4 mg PO Q8HR PRN #30 tab.rapdis PRN Reason: Nausea
[2018-02-14 16:44] VITALS: BP 139/93
== END 2018-02-14 16:30 | disposition home or self-care (01) | DRG 390 ==
LOC: ED 14:47 → 3B-SURG 21:40
PROVIDERS: ADMIT Internal Medicine; ATTEND Internal Medicine
DX: K56.609 Unspecified intestinal obstruction, unspecified as to partial versus complete obstruction (principal); E86.0 Dehydration; E87.6 Hypokalemia; K21.9 Gastro-esophageal reflux disease without esophagitis; Z79.84 Long term (current) use of oral hypoglycemic drugs; I10 Essential (primary) hypertension; E11.9 Type 2 diabetes mellitus without complications; Z85.038 Personal history of other malignant neoplasm of large intestine; Z82.49 Family history of ischemic heart disease and other diseases of the circulatory system; Z79.82 Long term (current) use of aspirin; E83.39 Other disorders of phosphorus metabolism
CPT/HCPCS: 36415; 74022; 74177; 80048; 80053; 81001; 82378; 82962; 83690; 83735; 84100; 85025; 85027; 96372; G0378; C9113; J0360; J1644; J1650; J2270; J2405; J2765; J3480; J7030; J7042; J7050; Q9967

== ENCOUNTER 2018-04-22 20:27 | Inpatient (IN) | payer BC ==
[~2018-04-22 20:27] MED LIST: ATROPINE 0.1% (CARDIAC) ONE; NACL P/F VIAL (10 ML) ONE; ZOFRAN ONE
--- NOTE | 2018-04-22 20:39 | Emergency Department Report ---
Blank Doc - Documentation Documentation: This is a 63-year-old female that presents with syncopal episode and weakness. This initial assessment/diagnostic orders/clinical plan/treatment(s) is/are subject to change based on patient's health status, clinical progression and re- assessment by fellow clinical providers in the ED. Further treatment and workup at subsequent clinical providers discretion. Patient/guardians urged not to elope from the ED as their condition may be serious if not clinically assessed and managed. Initial orders include: 1- Patient sent to MAIN ED for further evaluation and treatment 2- EKG 3-Labs
[2018-04-22 21:08] LABS: Basophils % (Auto) 0.4 % (0.0-1.8); Eosinophils # (Auto) 0.1 K/mm3 (0.0-0.4); Eosinophils % (Auto) 0.6 % (0.0-4.3); Hematocrit 32.2 % (30.3-42.9); Lymphocytes # (Auto) 2.8 K/mm3 (1.2-5.4); Lymphocytes % (Auto) 31.8 % (13.4-35.0); Mean Corpuscular HGB Conc 34 % (30-34); Mean Corpuscular Volume 93 fl (79-97); Monocytes # (Auto) 0.8 K/mm3 (0.0-0.8); Monocytes % (Auto) 9.4 % (0.0-7.3); Platelet Count 127 K/mm3 (140-440); Red Blood Count 3.45 M/mm3 (3.65-5.03); Red Cell Distribution Width 14.3 % (13.2-15.2)
[2018-04-22 21:19] LABS: INR 1.01 (0.87-1.13)
[2018-04-22 21:20] LABS: Partial Thromboplastin Time 24.1 Sec. (24.2-36.6)
[2018-04-22 21:41] LABS: Creatine Kinase MB 1.5 ng/mL (0.0-4.0)
[2018-04-22 21:43] LABS: Alanine Aminotransferase 13 units/L (7-56); Albumin 4.1 g/dL (3.9-5); BUN/Creatinine Ratio 45; Blood Urea Nitrogen 45 mg/dL (7-17); Calcium 9.3 mg/dL (8.4-10.2); Hemolysis Index 3
[2018-04-22] MEDS ORDERED: ZOFRAN IV ONE (22:12)
[2018-04-22] MEDS ORDERED: NACL 0.9% 1000 ML 2,000 ML IV ONE ×2 (22:12→23:52)
[2018-04-22] MEDS ORDERED: PROTONIX IV ONE (22:13)
--- NOTE | 2018-04-22 22:14 | Emergency Department Report ---
ED GI Bleed HPI - General Chief complaint: Syncope Stated complaint: PASSED OUT/VOMITING Time Seen by Provider: 04/22/18 20:33 Source: patient, family, RN notes reviewed Mode of arrival: Carried (Peds) Limitations: No Limitations - History of Present Illness Initial comments: This is a pleasant 63-year-old female who is not known to this provider previo usly. Past medical history includes hypertension, diabetes, colon cancer, status post partial colectomy, follow-up colonoscopy in 2014 Patient presents to the emergency room with a complaint of lightheadedness, fatigue, shortness of breath, syncope, near syncope, and associated dark stools. Symptoms present for the past week. They worse with physical exertion. The decreased with rest. There is no headache, neck pain, chest pain, abdominal pain, shortness of breath, hematemesis, or bright red blood per rectum. There is no posterior leg pain or leg swelling. Patient believes that her colonoscopy in 2014 was "normal." She was using the restroom today, and had an episode of syncope, landing on her left bicep, after defecating. MD complaint: melena -: Gradual, days(s) Quality: painless Consistency: intermittent Improves with: none Worsens with: none Associated Symptoms: nausea, loss of appetite, malaise, shortness of breath, syncope, weakness. denies: vomiting, epistaxis, fever/chills, headaches, easy bruising, rash, other bleeding - Related Data Home Medications Medication Instructions Recorded Confirmed Last Taken Aspirin [Aspir-Low] 81 mg PO DAILY 02/09/18 04/22/18 04/22/18 Spironolactone [Aldactone] 50 mg PO DAILY 02/09/18 04/22/18 04/22/18 metFORMIN [Glucophage] 500 mg PO BID 02/09/18 04/22/18 04/22/18 Allergies Allergy/AdvReac Type Severity Reaction Status Date / Time No Known Allergies Allergy Unverified 02/09/18 15:01 ED Review of Systems ROS: Stated complaint: PASSED OUT/VOMITING Other details as noted in HPI Constitutional: malaise, weakness Eyes: denies: vision change ENT: denies: epistaxis Respiratory: denies: cough Cardiovascular: syncope. denies: chest pain Gastrointestinal: melena. denies: hematemesis, hematochezia Genitourinary: denies: dysuria Musculoskeletal: arthralgia Skin: denies: lesions Neurological: weakness. denies: headache Psychiatric: anxiety ED Past Medical Hx - Past Medical History Previous Medical History?: Yes Hx Hypertension: Yes Hx Congestive Heart Failure: No Hx Diabetes: Yes Hx Asthma: No Hx COPD: No Hx HIV: No Additional medical history: colon cancer 2007 - Surgical History Past Surgical History?: No - Social History Smoking Status: Never Smoker Substance Use Type: None - Medications Home Medications: Home Medications Medication Instructions Recorded Confirmed Last Taken Type Aspirin [Aspir-Low] 81 mg PO DAILY 02/09/18 04/22/18 04/22/18 History Spironolactone [Aldactone] 50 mg PO DAILY 02/09/18 04/22/18 04/22/18 History metFORMIN [Glucophage] 500 mg PO BID 02/09/18 04/22/18 04/22/18 History ED Physical Exam - General Limitations: No Limitations General appearance: alert, in no apparent distress - Head Head exam: Present: atraumatic, normocephalic - Eye Eye exam: Present: normal appearance, EOMI, other (bilateral conjunctiva are paale). Absent: nystagmus - ENT ENT exam: Present: normal exam, normal orophraynx, mucous membranes moist - Neck Neck exam: Present: normal inspection, full ROM. Absent: tenderness, meningismus - Respiratory Respiratory exam: Present: normal lung sounds bilaterally. Absent: respiratory distress - Cardiovascular Cardiovascular Exam: Present: normal rhythm, tachycardia, normal heart sounds. Absent: systolic murmur, diastolic murmur, rubs, gallop - GI/Abdominal GI/Abdominal exam: Present: soft. Absent: distended, tenderness, guarding, rebound, rigid, pulsatile mass - Rectal Rectal exam: Present: normal inspection, normal rectal tone, heme (+) stool, black stool, other (chaperoned by thermostat maker Donna Sampson) - Extremities Exam Extremities exam: Present: normal inspection, full ROM, normal capillary refill, other (2+ pulses noted in the bilateral upper, lower extremities. Compartments soft. No long bony tenderness. The pelvis is stable.). Absent: tenderness, pedal edema, joint swelling, calf tenderness - Back Exam Back exam: Present: normal inspection, full ROM. Absent: tenderness, CVA tenderness (R), paraspinal tenderness, vertebral tenderness - Neurological Exam Neurological exam: Present: alert, oriented X3, CN II-XII intact, other (Extraocular movements intact. Tongue midline. No facial droop. Facial sensation intact to light touch in the V1, V2, V3 distribution bilaterally. 5 and 5 strength in 4 extremities.. Sensation is intact to light touch in 4 extremities.). Absent: motor sensory deficit - Psychiatric Psychiatric exam: Present: anxious - Skin Skin exam: Present: warm, dry, intact, normal color. Absent: rash ED Course Vital Signs 04/22/18 04/22/18 04/22/18 20:45 21:56 22:00 Temperature 97.7 F Pulse Rate 101 H 88 90 Respiratory 18 16 17 Rate Blood Pressure 96/65 87/58 O2 Sat by Pulse 100 98 Oximetry 04/22/18 04/22/18 04/22/18 22:16 22:30 22:36 Temperature Pulse Rate 86 82 84 Respiratory 19 16 15 Rate Blood Pressure 98/59 89/55 O2 Sat by Pulse 98 97 Oximetry 04/22/18 04/22/18 04/22/18 22:45 22:46 23:05 Temperature Pulse Rate 84 85 Respiratory 17 16 Rate Blood Pressure 81/48 98/59 81/48 O2 Sat by Pulse 99 99 97 Oximetry 04/22/18 04/22/18 04/22/18 23:08 23:15 23:16 Temperature Pulse Rate 84 86 90 Respiratory 17 22 22 Rate Blood Pressure 81/48 90/60 100/53 O2 Sat by Pulse 100 100 100 Oximetry 04/22/18 04/22/18 04/23/18 23:30 23:45 00:00 Temperature Pulse Rate 85 92 H 95 H Respiratory 12 19 18 Rate Blood Pressure 90/60 83/51 91/52 O2 Sat by Pulse 100 100 100 Oximetry 04/23/18 00:15 Temperature Pulse Rate 90 Respiratory 15 Rate Blood Pressure 95/51 O2 Sat by Pulse 100 Oximetry - Reevaluation(s) Reevaluation #1: 04/22/18 22:40 Differential diagnosis, including but not limited to: Orthostasis, vasovagal event, upper GI bleed, structural cardiac disease Assessment and plan: 63-year-old female with orthostasis, dizziness, lightheadedness, syncope, near-syncope, somewhat hypotensive, tachycardic, pale conjunctiva, has newly elevated blood urea nitrogen in the context of normal renal function, and has experienced an approximate 10 point drop in hematocrit over the past 3 months. She has black tarry stool on exam. Most likely having upper GI bleed. Endorsed intermittent NSAID use for chronic back pain. We will place 2 large bore IVs, give 2 L of IV fluid wide open, make the patient nothing by mouth, and initiate proton pump inhibitor. Discussed case with gastroenterology, Dr. Farrell, whose group will follow in consultation. Patient is amenable to packed red blood cell transfusion, if she still requires. Case presented to the Hospital physician, Dr. Guru Lezama, who has accepted the patient to the medical service. The patient endorses no chest pain, has no hypoxia, is tachycardic likely secondary to symptomatic anemia, and does not have lower extremity findings to suggest DVT. ED Medical Decision Making - Lab Data Result diagrams: 04/23/18 08:08 04/22/18 20:45 Vital Signs 04/22/18 04/22/18 20:45 22:16 Temperature 97.7 F Pulse Rate 101 H 86 Respiratory 18 19 Rate Blood Pressure 96/65 O2 Sat by Pulse 98 Oximetry Lab Results 04/22/18 04/22/18 04/22/18 Range/Units 20:45 20:45 20:45 WBC 8.7 (4.5-11.0) K/mm3 RBC 3.45 L (3.65-5.03) M/mm3 Hgb 11.0 (10.1-14.3) gm/dl Hct 32.2 (30.3-42.9) % MCV 93 (79-97) fl MCH 32 (28-32) pg MCHC 34 (30-34) % RDW 14.3 (13.2-15.2) % Plt Count 127 L (140-440) K/mm3 Lymph % (Auto) 31.8 (13.4-35.0) % [place] % (Auto) 9.4 H (0.0-7.3) % Eos % (Auto) 0.6 (0.0-4.3) % Baso % (Auto) 0.4 (0.0-1.8) % Lymph # 2.8 (1.2-5.4) K/mm3 [place] # 0.8 (0.0-0.8) K/mm3 Eos # 0.1 (0.0-0.4) K/mm3 Baso # 0.0 (0.0-0.1) K/mm3 Seg Neutrophils % 57.8 (40.0-70.0) % Seg Neutrophils # 5.1 (1.8-7.7) K/mm3 PT 13.9 (12.2-14.9) Sec. INR 1.01 (0.87-1.13) APTT 24.1 L (24.2-36.6) Sec. Sodium 133 L (137-145) mmol/L Potassium 4.2 (3.6-5.0) mmol/L Chloride 95.5 L (98-107) mmol/L Carbon Dioxide 25 (22-30) mmol/L Anion Gap 17 mmol/L BUN 45 H (7-17) mg/dL Creatinine 1.0 (0.7-1.2) mg/dL Estimated GFR > 60 ml/min BUN/Creatinine Ratio 45 % Glucose 134 H (65-100) mg/dL Calcium 9.3 (8.4-10.2) mg/dL Total Bilirubin 0.70 (0.1-1.2) mg/dL AST 15 (5-40) units/L ALT 13 (7-56) units/L Alkaline Phosphatase 35 (35-129) units/L Total Creatine Kinase 73 (30-135) units/L CK-MB (CK-2) 1.5 (0.0-4.0) ng/mL CK-MB (CK-2) Rel Index 2.0 (0-4) Troponin T < 0.010 (0.00-0.029) ng/mL Total Protein 6.8 (6.3-8.2) g/dL Albumin 4.1 (3.9-5) g/dL Albumin/Globulin Ratio 1.5 % - EKG Data -: EKG Interpreted by [place] EKG shows normal: sinus rhythm Rate: tachycardia - EKG Data 04/22/18 22:43 Sinus rhythm, 93 bpm, motion artifact, normal axis, QTC prolonged, poor R wave progression, abnormal EKG, not consistent with ST elevation myocardial infarction. Critical care attestation.: If time is entered above; I have spent that time in minutes in the direct care of this critically ill patient, excluding procedure time. ED Disposition Clinical Impression: Upper GI bleed Disposition: DC-09 OP ADMIT IP TO THIS HOSP Is pt being admited?: Yes Condition: Fair
[2018-04-22] MEDS ORDERED: D50W (25GM) Syringe IV PRN (23:10)
[2018-04-22] MEDS ORDERED: ZOFRAN IV PRN (23:16)
[2018-04-22] MEDS ORDERED: TYLENOL PR PRN (23:17)
[2018-04-22] MEDS: HumaLOG SUB-Q SCH (23:51)
[2018-04-23] MEDS ORDERED: NACL 0.9% 1000 ML 2,000 ML ONE (00:37)
[2018-04-23 00:38] LABS: Hematocrit 29.6 % (30.3-42.9); Hemoglobin 9.9 gm/dl (10.1-14.3)
--- NOTE | 2018-04-23 03:55 | History and Physical Report ---
CHIEF COMPLAINT: Dizziness. OTHER COMPLAINT: Includes black tarry stools and weakness. HISTORY OF PRESENT ILLNESS: The patient is a 63-year-old female who said she has been having black tarry stool for a few days and has been feeling weak and also the patient complains of dizziness when she stands up. There is no history of shortness of breath. No history of abdominal pain and no history of nausea or vomiting or hematemesis or hematochezia; however, the patient had admitted to taking nonsteroidal anti-inflammatory agents recently and presented for evaluation. PAST MEDICAL HISTORY: Pertinent for hypertension, diabetes mellitus, colon cancer. PAST SURGICAL HISTORY: Unremarkable. FAMILY HISTORY: Noncontributory. SOCIAL HISTORY: The patient does not smoke, does not drink alcohol and does not use illicit drugs. MEDICATIONS: The patient is on metformin 500 mg by mouth twice daily, Aldactone 50 mg by mouth daily, aspirin 81 mg by mouth daily. ALLERGIES: There are no known drug allergies. REVIEW OF SYSTEMS: CONSTITUTIONAL: There is no fever, no chills, no diaphoresis. HEENT: There is no headache or sore throat. CARDIOVASCULAR SYSTEM: There is no chest pain or orthopnea. RESPIRATORY: There is no shortness of breath or cough. GASTROINTESTINAL SYSTEM: There is no abdominal pain, diarrhea or constipation. There is no nausea and vomiting, but there is presence of melena or black tarry stool. NEUROLOGICAL: Dizziness present, weakness present. No altered mental status. MUSCULOSKELETAL: There is no joint pain or swelling. DERMATOLOGICAL SYSTEM: There is no skin rash or itching. GENITOURINARY SYSTEM: There is no dysuria, hematuria, or flank pain. Rest of system review is normal. PHYSICAL EXAMINATION: GENERAL: At the time of exam, the patient was found to be alert, oriented x 3 and not in acute distress. VITAL SIGNS: At the initial time of presentation shows temperature of 97.7 degrees Fahrenheit, pulse of 101, respirations 18, blood pressure 96/65, O2 sat of 98% on room air. HEENT: Showed pupils to be equal, round, reactive to light and accommodating. Extraocular muscles are intact. NECK: Supple with no JVD or carotid bruit. CARDIOVASCULAR: Showed normal first and second heart sounds with no gallops or murmur. RESPIRATORY SYSTEM: Show good air entry on both sides of the lungs with no abnormal breath sounds. GASTROINTESTINAL SYSTEM: Show abdomen to be full, soft, nontender with no organomegaly or rigidity. NEUROLOGIC: Shows no focal deficit. MUSCULOSKELETAL SYSTEM: Show no joint swelling or tenderness. DERMATOLOGICAL SYSTEM: Show no skin rash. GENITOURINARY SYSTEM: Showing no costovertebral angle tenderness. PERTINENT LABORATORY AND IMAGING STUDIES: The patient has CBC done with normal white count, normal hemoglobin and normal hematocrit with CBC differential showing elevated monocyte count of 9.4%. The patient's coagulation studies were unremarkable. Chemistry showed low sodium of 133 with low chloride of 95.5, elevated BUN of 45 with normal creatinine and normal GFR of greater than 60. The rest of the patient's chemistry was unremarkable. IMAGING STUDIES: No imaging studies were done at this time. DIAGNOSIS: Gastrointestinal bleed. PLAN: 1. The patient will be admitted to telemetry. 2. The patient will remain n.p.o. until seen by the recreation officer. 3. The patient will continue GI consult with Dr. Bunyn Farrell of the [facility]. 4. The patient will have hemoglobin and hematocrit monitored every 6 hours serially x 2 more levels. 5. The patient will be on Accu-Chek every 4 hours followed by sliding scale using low dose regular insulin coverage. 6. DVT prophylaxis will be through sequential compressing device. 7. The patient will continue IV Protonix drip started in the Emergency Room. 8. The patient will be on IV normal saline at 75 mL by. 9. The patient will be on IV Zofran 4 mg every 8 hours as needed for nausea and vomiting. 10. The patient will be on oxygen by nasal cannula at 2 liter per minute and will remain n.p.o. until seen by the recreation officer. JOB# [id number] OCN/NTS
[2018-04-23 05:29] LABS: Hematocrit 26.9 % (30.3-42.9)
[2018-04-23] MEDS: NACL 0.9% 1000 ML 1,000 ML IV SCH ×4 (06:55→20:50)
[2018-04-23] MEDS: HumaLOG SUB-Q SCH ×4 (07:45→20:47)
--- NOTE | 2018-04-23 07:47 | Event Note ---
Date: 04/23/18 ger guerra called this morning. Patient admitted last night following situational syncope with suspected GI bleed. On admission was hypotensive. Received a total of 4 liter Fluids NS. This am, remains hypotensive with recurrent syncope while attempting to sit up and also bradycardia BUT NO LOSS OF PULSE. Per nursing staff patient also had some t onic clonic movement concerning for seizure. she has a remote hx of colon cancer. Plan at this time CT BRAIN AND CHEST WHEN STABLE GIVE ADDITIONAL 2 LITTERS OF FLUID CHECK STAT H/H CARDIOLOGY AND NEUROLOGY CONSULT TRANSFER TO ICU FOR POSSIBLE PRESSORS CHECK TSH PRODUCTION MECHANIC CONSULT CCT [id number]
[2018-04-23 08:51] LABS: Hemoglobin 6.6 gm/dl (10.1-14.3)
[2018-04-23 08:52] LABS: Hematocrit 20.3 % (30.3-42.9)
[2018-04-23] MEDS ORDERED: NACL 0.9% 500 ML 500 ML IV ONE (10:00)
[2018-04-23 11:27] LABS: Amphetamine Screen,Urine PRESUMPTIVE NEGATIVE; Benzodiazepines Screen,Urine PRESUMPTIVE NEGATIVE; Cannabinoid Screen,Urine PRESUMPTIVE NEGATIVE; Cocaine Screen,Urine PRESUMPTIVE NEGATIVE; Methadone Screen,Urine PRESUMPTIVE NEGATIVE; Opiate Screen,Urine PRESUMPTIVE NEGATIVE
--- NOTE | 2018-04-23 11:41 | Consultation ---
History of Present Illness Consult date: 04/23/18 Requesting physician: JACK MEJIA Reason for consult: other (Acute GI Bleeding; Hypovolemic Shock) History of present illness: PULMONARY/CCM CONSULT NOTE (Full dictation # [id number]) Please see dictated notes for full details Medications and Allergies Allergies Allergy/AdvReac Type Severity Reaction Status Date / Time No Known Allergies Allergy Unverified 02/09/18 15:01 Home Medications Medication Instructions Recorded Confirmed Last Taken Type Aspirin [Aspir-Low] 81 mg PO DAILY 02/09/18 04/22/18 04/22/18 History Spironolactone [Aldactone] 50 mg PO DAILY 02/09/18 04/22/18 04/22/18 History metFORMIN [Glucophage] 500 mg PO BID 02/09/18 04/22/18 04/22/18 History Active Meds: Active Medications Acetaminophen (Tylenol) 650 mg [place] Q4H PRN PRN Reason: Fever >101 Dextrose (D50w (25gm) Syringe) 50 ml IV PRN PRN PRN Reason: Hypoglycemia Pantoprazole Sodium 80 mg/ (Sodium Chloride) 100 mls @ 10 mls/hr IV DIRECT RUDY Sodium Chloride (Nacl 0.9% 1000 Ml) 1,000 mls @ 75 mls/hr IV DIRECT RUDY Last Admin: 04/23/18 06:55 Dose: 75 mls/hr Documented by: Sodium Chloride (Nacl 0.9% 1000 Ml) 1,000 mls @ 0 mls/hr IV DIRECT RUDY Stop: 04/24/18 08:01 Last Admin: 04/23/18 08:15 Dose: 999 mls/hr Documented by: Insulin Human Lispro (Humalog) 0 unit SUB-Q Q4H RUDY; Protocol Last Admin: 04/23/18 07:45 Dose: Not Given Documented by: Ondansetron HCl (Zofran) 4 mg IV Q8H PRN PRN Reason: Nausea And Vomiting Physical Examination Vital signs: Vital Signs Temp Pulse Resp BP 97.7 F 101 H 18 96/65 04/22/18 20:45 04/22/18 20:45 04/22/18 20:45 04/22/18 20:45 Results - Laboratory Findings CBC and BMP: 04/23/18 08:08 04/22/18 20:45 PT/INR, D-dimer PT 13.9 Sec. (12.2-14.9) 04/22/18 20:45 INR 1.01 (0.87-1.13) 04/22/18 20:45 Abnormal lab findings: Abnormal Labs 04/22/18 04/22/18 04/22/18 20:45 20:45 20:45 RBC 3.45 L Hgb Hct Plt Count 127 L [place] % (Auto) 9.4 H APTT 24.1 L Sodium 133 L Chloride 95.5 L BUN 45 H Glucose 134 H POC Glucose Crossmatch 04/22/18 04/22/18 04/23/18 22:55 23:54 00:16 RBC Hgb 9.9 L Hct 29.6 L Plt Count [place] % (Auto) APTT Sodium Chloride BUN Glucose POC Glucose 147 H Crossmatch See Detail 04/23/18 04/23/18 04/23/18 01:08 04:17 07:50 RBC Hgb 9.0 L Hct 26.9 L Plt Count [place] % (Auto) APTT Sodium Chloride BUN Glucose POC Glucose 131 H 180 H Crossmatch 04/23/18 08:08 RBC Hgb 6.6 L Hct 20.3 L D Plt Count [place] % (Auto) APTT Sodium Chloride BUN Glucose POC Glucose Crossmatch
--- NOTE | 2018-04-23 12:02 | Consultation ---
History of Present Illness Consult date: 04/23/18 Requesting physician: JACK MEJIA Reason for Consult: Syncopal spells History of present illness: This is a 63 yr old female with history of htn., diabetes, and colon cancer. She was in her usual state of health when she noted black stools about 3 days ago. She has also been feeling weaker, lightheaded and nauseated. Yesterday she was walking in her home and passed out. She fell on her arm and feels that she was not out for too long. She presented to ER with hypotension and was given 4 liters of fluid. Hgb fell from 11 to 6 gm/dl. After admission her blood pressure again dropped, and she had a syncopal spell with several tonic- clonic movements. The patient states that she has been having dizzy spells since 2017. She was given medicine for this. She sometimes notes palpitations with the dizzy spells. She has not had headaches but does admit nausea. She has had one prior syncopal spell many years ago. She admits being diaphoretic before this event. The patients colon cancer was diagnosed in 2007. She underwent bowel resection only. No chemotherapy or radiotherapy was thought to be necessary. Her last colonoscopy in 2014 was said to be free of disease. She has been taking daily aspirin. She has noted intermittent numbness and tingling in her feet and it happened yesterday prior to her event. Past History Past Medical History: cancer, diabetes, hypertension Past Surgical History: bowel surgery Social history: denies: smoking, alcohol abuse Medications and Allergies Allergies Allergy/AdvReac Type Severity Reaction Status Date / Time No Known Allergies Allergy Unverified 02/09/18 15:01 Home Medications Medication Instructions Recorded Confirmed Last Taken Type Aspirin [Aspir-Low] 81 mg PO DAILY 02/09/18 04/22/18 04/22/18 History Spironolactone [Aldactone] 50 mg PO DAILY 02/09/18 04/22/18 04/22/18 History metFORMIN [Glucophage] 500 mg PO BID 02/09/18 04/22/18 04/22/18 History Active Meds: Active Medications Acetaminophen (Tylenol) [address] Q4H PRN PRN Reason: Fever >101 Dextrose (D50w (25gm) Syringe) 50 ml IV PRN PRN PRN Reason: Hypoglycemia Pantoprazole Sodium 80 mg/ (Sodium Chloride) 100 mls @ 10 mls/hr IV DIRECT RUDY Sodium Chloride (Nacl 0.9% 1000 Ml) 1,000 mls @ 75 mls/hr IV DIRECT RUDY Last Admin: 04/23/18 06:55 Dose: 75 mls/hr Documented by: Sodium Chloride (Nacl 0.9% 1000 Ml) 1,000 mls @ 0 mls/hr IV DIRECT RUDY Stop: 04/24/18 08:01 Last Admin: 04/23/18 08:15 Dose: 999 mls/hr Documented by: Insulin Human Lispro (Humalog) 0 unit SUB-Q Q4H RUDY; Protocol Last Admin: 04/23/18 07:45 Dose: Not Given Documented by: Ondansetron HCl (Zofran) 4 mg IV Q8H PRN PRN Reason: Nausea And Vomiting Review of Systems Constitutional: fatigue, weakness, malaise, poor appetite, no weight loss, no weight gain Ears, nose, mouth and throat: no decreased hearing Cardiovascular: syncope, lightheadedness, shortness of breath, no chest pain, no palpitations, no rapid/irregular heart beat Respiratory: shortness of breath, no cough, no cough with sputum, no congestion Gastrointestinal: nausea, melena, no abdominal pain, no vomiting, no diarrhea, no constipation Genitourinary Female: no dysuria, no urinary frequency, no urgency Musculoskeletal: other Neurological: numbness, tingling, syncope, no headaches Physical Examination - Vital Signs Vital Signs: Vital Signs Temp Pulse Resp BP 97.7 F 101 H 18 96/65 04/22/18 20:45 04/22/18 20:45 04/22/18 20:45 04/22/18 20:45 General - Resting comfortably in bed, in no distress. Appears a bit anxious. Neurological exam - speech fluent, oriented X 3 CN's - EOMs full, no nystagmus, face symmetric hearing intact, V-1 thru V-3 intact bilaterally, tongue midline. Motor - %/% bilaterally, no drift. Reflexes - trace throughout. Sensory - intact to touch and sharp all 4 extremities. Cerebellar - intact FTN, DONG, and fine finger movements Results - Laboratory Findings CBC and BMP: 04/23/18 08:08 04/22/18 20:45 Abnormal Lab Findings: Abnormal Labs 04/22/18 04/22/18 04/22/18 20:45 20:45 20:45 RBC 3.45 L Hgb Hct Plt Count 127 L [place] % (Auto) 9.4 H APTT 24.1 L Sodium 133 L Chloride 95.5 L BUN 45 H Glucose 134 H POC Glucose Crossmatch 04/22/18 04/22/18 04/23/18 22:55 23:54 00:16 RBC Hgb 9.9 L Hct 29.6 L Plt Count [place] % (Auto) APTT Sodium Chloride BUN Glucose POC Glucose 147 H Crossmatch See Detail 04/23/18 04/23/18 04/23/18 01:08 04:17 07:50 RBC Hgb 9.0 L Hct 26.9 L Plt Count [place] % (Auto) APTT Sodium Chloride BUN Glucose POC Glucose 131 H 180 H Crossmatch 04/23/18 08:08 RBC Hgb 6.6 L Hct 20.3 L D Plt Count [place] % (Auto) APTT Sodium Chloride BUN Glucose POC Glucose Crossmatch Assessment and Plan 63 yr old female with history of colon cancer, presents with melena, anemia, hypotension and syncope. She had an event with bradycardia this a.m. Evaluation in progress. Because of potential for brain metastasis, would definitely screen for this. Plan - MRI brain with contrast.
--- NOTE | 2018-04-23 12:35 | XRay Report ---
AP CHEST: HISTORY: Right arm PICC placement The right arm PICC terminates in the lower SVC. AP view of the chest demonstrates a normal mediastinal and cardiac contour with clear lungs and normal bony and soft tissue structures. IMPRESSION: Unremarkable AP chest.
[2018-04-23] MEDS ORDERED: WATER FOR IRRIG STERILE IR ONE (14:19)
[2018-04-23] MEDS ORDERED: WATER FOR IRRIG STERILE ONE (14:19)
[2018-04-23] MEDS ORDERED: NACL 0.9% 1000 ML 1,000 ML ONE (14:21)
--- NOTE | 2018-04-23 14:33 | Gastroenterology Consultation ---
<RYAN ERICKSON - Last Filed: 04/23/18 14:39> History of Present Illness - Reason for Consult Consult date: 04/23/18 UGIB Requesting physician: LAURIE GALDAMEZ - History of Present Illness Patient is a 63 y/o female with PMH of HTN, DM, and colon cancer (s/p resection in 2018) who presented to ED with c/o dark stools with associated lighth eadedness, weakness, SOB, and syncope. Rectal exam upon admission by ER provider revealed melena to which GI has been consulted. Patient currently in ICU on protonix drip with multiple continued BMs with bloody stools. No hematemesis or hematochezia. Denies CP, abd pain, or N/V. Takes daily ASA and occasional Ibuprofen at home. No hx of PUD or liver disease. No prior EGD. Last colonoscopy in 2014 with negative results per pt report. Upon exam, rectal revealed dark black stool mixed with maroon blood (household refrigerator mechanic present during exam-Brittney GALLAROD). Past History Past Medical History: cancer, diabetes, hypertension Past Surgical History: bowel surgery Social history: denies: smoking, alcohol abuse Medications and Allergies Allergies Allergy/AdvReac Type Severity Reaction Status Date / Time No Known Allergies Allergy Unverified 02/09/18 15:01 Home Medications Medication Instructions Recorded Confirmed Last Taken Type Aspirin [Aspir-Low] 81 mg PO DAILY 02/09/18 04/22/18 04/22/18 History Spironolactone [Aldactone] 50 mg PO DAILY 02/09/18 04/22/18 04/22/18 History metFORMIN [Glucophage] 500 mg PO BID 02/09/18 04/22/18 04/22/18 History Active Meds: Active Medications Acetaminophen (Tylenol) 650 mg RI Q4H PRN PRN Reason: Fever >101 Dextrose (D50w (25gm) Syringe) 50 ml IV PRN PRN PRN Reason: Hypoglycemia Pantoprazole Sodium 80 mg/ (Sodium Chloride) 100 mls @ 10 mls/hr IV DIRECT RUDY Sodium Chloride (Nacl 0.9% 1000 Ml) 1,000 mls @ 75 mls/hr IV DIRECT RUDY Last Admin: 04/23/18 06:55 Dose: 75 mls/hr Documented by: Sodium Chloride (Nacl 0.9% 1000 Ml) 1,000 mls @ 0 mls/hr IV DIRECT RUDY Stop: 04/24/18 08:01 Last Admin: 04/23/18 08:15 Dose: 999 mls/hr Documented by: Insulin Human Lispro (Humalog) 0 unit SUB-Q Q4H RUDY; Protocol Last Admin: 04/23/18 13:03 Dose: Not Given Documented by: Ondansetron HCl (Zofran) 4 mg IV Q8H PRN PRN Reason: Nausea And Vomiting medications reviewed/updated as required Review of Systems - Review of Systems All systems: negative Constitutional: weakness Gastrointestinal: melena Exam - Constitutional Vital Signs: Temp Pulse Resp BP Pulse Ox 97.5 F L 81 19 100/55 100 04/23/18 13:59 04/23/18 13:59 04/23/18 13:59 04/23/18 13:59 04/23/18 13:59 General appearance: mild distress - EENT Eyes: PERRL, EOM intact ENT: hearing intact - Respiratory Respiratory: bilateral: CTA - Cardiovascular Rhythm: regular Heart Sounds: Present: S1 & S2 - Gastrointestinal General gastrointestinal: Present: soft, non-tender, non-distended, normal bowel sounds Rectal Exam: other (black/maroon stool (household refrigerator mechanic present - Brittney GALLARDO)) - Neurologic Neurological: alert and oriented x3 - Labs CBC & Chem 7: 04/23/18 08:08 04/22/18 20:45 Lab Results: Laboratory Results - last 24 hr 04/22/18 04/22/18 04/22/18 20:45 20:45 20:45 WBC 8.7 RBC 3.45 L Hgb 11.0 Hct 32.2 MCV 93 MCH 32 MCHC 34 RDW 14.3 Plt Count 127 L Lymph % (Auto) 31.8 Routt % (Auto) 9.4 H Eos % (Auto) 0.6 Baso % (Auto) 0.4 Lymph # 2.8 Routt # 0.8 Eos # 0.1 Baso # 0.0 Seg Neutrophils % 57.8 Seg Neutrophils # 5.1 PT 13.9 INR 1.01 APTT 24.1 L Sodium 133 L Potassium 4.2 Chloride 95.5 L Carbon Dioxide 25 Anion Gap 17 BUN 45 H Creatinine 1.0 Estimated GFR > 60 BUN/Creatinine Ratio 45 Glucose 134 H POC Glucose Calcium 9.3 Magnesium Total Bilirubin 0.70 AST 15 ALT 13 Alkaline Phosphatase 35 Total Creatine Kinase 73 CK-MB (CK-2) 1.5 CK-MB (CK-2) Rel Index 2.0 Troponin T < 0.010 Total Protein 6.8 Albumin 4.1 Albumin/Globulin Ratio 1.5 TSH Urine Opiates Screen Urine Methadone Screen Ur Barbiturates Screen Ur Phencyclidine Scrn Ur Amphetamines Screen U Benzodiazepines Scrn Urine Cocaine Screen U Marijuana (THC) Screen Drugs of Abuse Note Blood Type Antibody Screen Crossmatch 04/22/18 04/22/18 04/22/18 22:46 22:55 23:54 WBC RBC Hgb Hct MCV MCH MCHC RDW Plt Count Lymph % (Auto) Routt % (Auto) Eos % (Auto) Baso % (Auto) Lymph # Routt # Eos # Baso # Seg Neutrophils % Seg Neutrophils # PT INR APTT Sodium Potassium Chloride Carbon Dioxide Anion Gap BUN Creatinine Estimated GFR BUN/Creatinine Ratio Glucose POC Glucose 147 H Calcium Magnesium 2.00 Total Bilirubin AST ALT Alkaline Phosphatase Total Creatine Kinase 71 CK-MB (CK-2) CK-MB (CK-2) Rel Index Troponin T Total Protein Albumin Albumin/Globulin Ratio TSH Urine Opiates Screen Urine Methadone Screen Ur Barbiturates Screen Ur Phencyclidine Scrn Ur Amphetamines Screen U Benzodiazepines Scrn Urine Cocaine Screen U Marijuana (THC) Screen Drugs of Abuse Note Blood Type B POSITIVE Antibody Screen Negative Crossmatch See Detail 04/23/18 04/23/18 04/23/18 00:16 01:08 04:17 WBC RBC Hgb 9.9 L 9.0 L Hct 29.6 L 26.9 L MCV MCH MCHC RDW Plt Count Lymph % (Auto) Routt % (Auto) Eos % (Auto) Baso % (Auto) Lymph # Routt # Eos # Baso # Seg Neutrophils % Seg Neutrophils # PT INR APTT Sodium Potassium Chloride Carbon Dioxide Anion Gap BUN Creatinine Estimated GFR BUN/Creatinine Ratio Glucose POC Glucose 131 H Calcium Magnesium Total Bilirubin AST ALT Alkaline Phosphatase Total Creatine Kinase CK-MB (CK-2) CK-MB (CK-2) Rel Index Troponin T Total Protein Albumin Albumin/Globulin Ratio TSH Urine Opiates Screen Urine Methadone Screen Ur Barbiturates Screen Ur Phencyclidine Scrn Ur Amphetamines Screen U Benzodiazepines Scrn Urine Cocaine Screen U Marijuana (THC) Screen Drugs of Abuse Note Blood Type Antibody Screen Crossmatch 04/23/18 04/23/18 04/23/18 07:38 07:50 08:01 WBC RBC Hgb Hct MCV MCH MCHC RDW Plt Count Lymph % (Auto) Routt % (Auto) Eos % (Auto) Baso % (Auto) Lymph # Routt # Eos # Baso # Seg Neutrophils % Seg Neutrophils # PT INR APTT Sodium Potassium Chloride Carbon Dioxide Anion Gap BUN Creatinine Estimated GFR BUN/Creatinine Ratio Glucose POC Glucose 180 H Calcium Magnesium Total Bilirubin AST ALT Alkaline Phosphatase Total Creatine Kinase CK-MB (CK-2) CK-MB (CK-2) Rel Index Troponin T Total Protein Albumin Albumin/Globulin Ratio TSH 0.720 Urine Opiates Screen Presumptive negative Urine Methadone Screen Presumptive negative Ur Barbiturates Screen Presumptive negative Ur Phencyclidine Scrn Presumptive negative Ur Amphetamines Screen Presumptive negative U Benzodiazepines Scrn Presumptive negative Urine Cocaine Screen Presumptive negative U Marijuana (THC) Screen Presumptive negative Drugs of Abuse Note Disclamer Blood Type Antibody Screen Crossmatch 04/23/18 04/23/18 08:08 13:01 WBC RBC Hgb 6.6 L Hct 20.3 L D MCV MCH MCHC RDW Plt Count Lymph % (Auto) Routt % (Auto) Eos % (Auto) Baso % (Auto) Lymph # Routt # Eos # Baso # Seg Neutrophils % Seg Neutrophils # PT INR APTT Sodium Potassium Chloride Carbon Dioxide Anion Gap BUN Creatinine Estimated GFR BUN/Creatinine Ratio Glucose POC Glucose 123 H Calcium Magnesium Total Bilirubin AST ALT Alkaline Phosphatase Total Creatine Kinase CK-MB (CK-2) CK-MB (CK-2) Rel Index Troponin T Total Protein Albumin Albumin/Globulin Ratio TSH Urine Opiates Screen Urine Methadone Screen Ur Barbiturates Screen Ur Phencyclidine Scrn Ur Amphetamines Screen U Benzodiazepines Scrn Urine Cocaine Screen U Marijuana (THC) Screen Drugs of Abuse Note Blood Type Antibody Screen Crossmatch Assessment and Plan 1.UGIB 2.H/o colon cancer (s/p resection 2007; f/u colonoscopy in 2014 negative per pt report) -INR 1.01 -BUN 45 -H/H 6.6/20.3-trended down (PRBCs currently transfusing) -continue to monitor H/H and transfuse as needed -rectal exam with black/maroon stool- currently HD stable (hypotension improved) -etiology-possible ulcer vs other -EGD today -Keep NPO -continue protonix drip -hold blood thinning medications -continue supportive care -will follow <MARGO SANCHEZ - Last Filed: 04/23/18 18:29> Medications and Allergies Active Meds: Active Medications Acetaminophen (Tylenol) 650 mg RI Q4H PRN PRN Reason: Fever >101 Dextrose (D50w (25gm) Syringe) 50 ml IV PRN PRN PRN Reason: Hypoglycemia Pantoprazole Sodium 80 mg/ (Sodium Chloride) 100 mls @ 10 mls/hr IV DIRECT RUDY Sodium Chloride (Nacl 0.9% 1000 Ml) 1,000 mls @ 75 mls/hr IV DIRECT RUDY Last Admin: 04/23/18 06:55 Dose: 75 mls/hr Documented by: Sodium Chloride (Nacl 0.9% 1000 Ml) 1,000 mls @ 0 mls/hr IV DIRECT RUDY Stop: 04/24/18 08:01 Last Admin: 04/23/18 08:15 Dose: 999 mls/hr Documented by: Insulin Human Lispro (Humalog) 0 unit SUB-Q Q4H RUDY; Protocol Last Admin: 04/23/18 16:00 Dose: Not Given Documented by: Ondansetron HCl (Zofran) 4 mg IV Q8H PRN PRN Reason: Nausea And Vomiting Exam - Constitutional Vital Signs: Temp Pulse Resp BP Pulse Ox 98.0 F 78 22 99/58 97 04/23/18 17:25 04/23/18 17:25 04/23/18 17:25 04/23/18 17:25 04/23/18 17:25 - Labs CBC & Chem 7: 04/23/18 08:08 04/22/18 20:45 Lab Results: Laboratory Results - last 24 hr 04/22/18 04/22/18 04/22/18 20:45 20:45 20:45 WBC 8.7 RBC 3.45 L Hgb 11.0 Hct 32.2 MCV 93 MCH 32 MCHC 34 RDW 14.3 Plt Count 127 L Lymph % (Auto) 31.8 Routt % (Auto) 9.4 H Eos % (Auto) 0.6 Baso % (Auto) 0.4 Lymph # 2.8 Routt # 0.8 Eos # 0.1 Baso # 0.0 Seg Neutrophils % 57.8 Seg Neutrophils # 5.1 PT 13.9 INR 1.01 APTT 24.1 L Sodium 133 L Potassium 4.2 Chloride 95.5 L Carbon Dioxide 25 Anion Gap 17 BUN 45 H Creatinine 1.0 Estimated GFR > 60 BUN/Creatinine Ratio 45 Glucose 134 H POC Glucose Calcium 9.3 Magnesium Total Bilirubin 0.70 AST 15 ALT 13 Alkaline Phosphatase 35 Total Creatine Kinase 73 CK-MB (CK-2) 1.5 CK-MB (CK-2) Rel Index 2.0 Troponin T < 0.010 Total Protein 6.8 Albumin 4.1 Albumin/Globulin Ratio 1.5 TSH Urine Opiates Screen Urine Methadone Screen Ur Barbiturates Screen Ur Phencyclidine Scrn Ur Amphetamines Screen U Benzodiazepines Scrn Urine Cocaine Screen U Marijuana (THC) Screen Drugs of Abuse Note Blood Type Antibody Screen Crossmatch 04/22/18 04/22/18 04/22/18 22:46 22:55 23:54 WBC RBC Hgb Hct MCV MCH MCHC RDW Plt Count Lymph % (Auto) Routt % (Auto) Eos % (Auto) Baso % (Auto) Lymph # Routt # Eos # Baso # Seg Neutrophils % Seg Neutrophils # PT INR APTT Sodium Potassium Chloride Carbon Dioxide Anion Gap BUN Creatinine Estimated GFR BUN/Creatinine Ratio Glucose POC Glucose 147 H Calcium Magnesium 2.00 Total Bilirubin AST ALT Alkaline Phosphatase Total Creatine Kinase 71 CK-MB (CK-2) CK-MB (CK-2) Rel Index Troponin T Total Protein Albumin Albumin/Globulin Ratio TSH Urine Opiates Screen Urine Methadone Screen Ur Barbiturates Screen Ur Phencyclidine Scrn Ur Amphetamines Screen U Benzodiazepines Scrn Urine Cocaine Screen U Marijuana (THC) Screen Drugs of Abuse Note Blood Type B POSITIVE Antibody Screen Negative Crossmatch See Detail 04/23/18 04/23/18 04/23/18 00:16 01:08 04:17 WBC RBC Hgb 9.9 L 9.0 L Hct 29.6 L 26.9 L MCV MCH MCHC RDW Plt Count Lymph % (Auto) Routt % (Auto) Eos % (Auto) Baso % (Auto) Lymph # Routt # Eos # Baso # Seg Neutrophils % Seg Neutrophils # PT INR APTT Sodium Potassium Chloride Carbon Dioxide Anion Gap BUN Creatinine Estimated GFR BUN/Creatinine Ratio Glucose POC Glucose 131 H Calcium Magnesium Total Bilirubin AST ALT Alkaline Phosphatase Total Creatine Kinase CK-MB (CK-2) CK-MB (CK-2) Rel Index Troponin T Total Protein Albumin Albumin/Globulin Ratio TSH Urine Opiates Screen Urine Methadone Screen Ur Barbiturates Screen Ur Phencyclidine Scrn Ur Amphetamines Screen U Benzodiazepines Scrn Urine Cocaine Screen U Marijuana (THC) Screen Drugs of Abuse Note Blood Type Antibody Screen Crossmatch 04/23/18 04/23/18 04/23/18 07:38 07:50 08:01 WBC RBC Hgb Hct MCV MCH MCHC RDW Plt Count Lymph % (Auto) Routt % (Auto) Eos % (Auto) Baso % (Auto) Lymph # Routt # Eos # Baso # Seg Neutrophils % Seg Neutrophils # PT INR APTT Sodium Potassium Chloride Carbon Dioxide Anion Gap BUN Creatinine Estimated GFR BUN/Creatinine Ratio Glucose POC Glucose 180 H Calcium Magnesium Total Bilirubin AST ALT Alkaline Phosphatase Total Creatine Kinase CK-MB (CK-2) CK-MB (CK-2) Rel Index Troponin T Total Protein Albumin Albumin/Globulin Ratio TSH 0.720 Urine Opiates Screen Presumptive negative Urine Methadone Screen Presumptive negative Ur Barbiturates Screen Presumptive negative Ur Phencyclidine Scrn Presumptive negative Ur Amphetamines Screen Presumptive negative U Benzodiazepines Scrn Presumptive negative Urine Cocaine Screen Presumptive negative U Marijuana (THC) Screen Presumptive negative Drugs of Abuse Note Disclamer Blood Type Antibody Screen Crossmatch 04/23/18 04/23/18 04/23/18 08:08 13:01 16:09 WBC RBC Hgb 6.6 L Hct 20.3 L D MCV MCH MCHC RDW Plt Count Lymph % (Auto) [place]t % (Auto) Eos % (Auto) Baso % (Auto) Lymph # Routt # Eos # Baso # Seg Neutrophils % Seg Neutrophils # PT INR APTT Sodium Potassium Chloride Carbon Dioxide Anion Gap BUN Creatinine Estimated GFR BUN/Creatinine Ratio Glucose POC Glucose 123 H 168 H Calcium Magnesium Total Bilirubin AST ALT Alkaline Phosphatase Total Creatine Kinase CK-MB (CK-2) CK-MB (CK-2) Rel Index Troponin T Total Protein Albumin Albumin/Globulin Ratio TSH Urine Opiates Screen Urine Methadone Screen Ur Barbiturates Screen Ur Phencyclidine Scrn Ur Amphetamines Screen U Benzodiazepines Scrn Urine Cocaine Screen U Marijuana (THC) Screen Drugs of Abuse Note Blood Type Antibody Screen Crossmatch Assessment and Plan Patient seen in examined, agree with advanced practitioner's evaluation, assessment, and plan, with the following additions: Patient with active melena and some dark red blood mixed in, hemodynamic instability with tachycardia and low BP in ER. High BUN/Cr ratio. All suspicious for brisk active upper GI bleed such as from PUD AVM, etc. Plan for emergent EGD today, final recs based upon results. Continue PPI drip for now.
--- NOTE | 2018-04-23 14:51 | Progress Note ---
Assessment and Plan Assessment and plan: Patient is a 63 y/o female with PMH of HTN, DM, and colon cancer (s/p resection in 2018) who presented to ED with c/o dark stools with associated lightheadedness, weakness, SOB, and syncope. This am was noted to remain hypotensive and a recurrent syncope with concern for possible seizure. Syncope GI bleed Vasogeneic shock Acute blood loss Anemia presumed seizure HTN DM plan Transfer to ICU due to vasogenic shock Check MRI Brain GI and neurology and internsivist call continue accu check and blood gclucose monitoring. DVT/GI prophy \ The high probability of a clinically significant, sudden or life threatening deterioration of the [cardiovascular, material control clerk] system(s) required my full and direct attention, intervention and personal management. The aggregate critical care time was [75] minutes. This time is in addition to time spent performing reported procedures but includes the following: [x] Data Review and interpretation [x] Patient assessment and monitoring of vital signs [x] Documentation [x] Medication orders and management History Interval history: Patient seen and examined this am during the Code met. Stable at this time. now in the ICU no new complaints. Hospitalist Physical - Constitutional Vitals: Temp Pulse Resp BP Pulse Ox 97.5 F L 81 19 100/55 100 04/23/18 13:59 04/23/18 13:59 04/23/18 13:59 04/23/18 13:59 04/23/18 13:59 General appearance: Present: no acute distress, well-nourished, obese - EENT Eyes: Present: PERRL ENT: hearing intact - Neck Neck: Present: supple, normal ROM - Respiratory Respiratory effort: normal Respiratory: bilateral: diminished - Cardiovascular Rhythm: regular Heart Sounds: Present: S1 & S2, systolic murmur - Extremities Extremities: no ischemia, pulses intact, pulses symmetrical, No edema, normal temperature, normal color, Full ROM Peripheral Pulses: within normal limits - Abdominal General gastrointestinal: soft, non-tender, non-distended, normal bowel sounds - Integumentary Integumentary: Present: clear, warm, dry - Psychiatric Psychiatric: appropriate mood/affect, intact judgment & insight, cooperative - Neurologic Neurologic: CNII-XII intact, moves all extremities - Allied Health Allied health notes reviewed: nursing, RT Results - Labs CBC & Chem 7: 04/23/18 08:08 04/22/18 20:45 Labs: Laboratory Last Values WBC 8.7 K/mm3 (4.5-11.0) 04/22/18 20:45 RBC 3.45 M/mm3 (3.65-5.03) L 04/22/18 20:45 Hgb 6.6 gm/dl (10.1-14.3) L 04/23/18 08:08 Hct 20.3 % (30.3-42.9) L D 04/23/18 08:08 MCV 93 fl (79-97) 04/22/18 20:45 MCH 32 pg (28-32) 04/22/18 20:45 MCHC 34 % (30-34) 04/22/18 20:45 RDW 14.3 % (13.2-15.2) 04/22/18 20:45 Plt Count 127 K/mm3 (140-440) L 04/22/18 20:45 Lymph % (Auto) 31.8 % (13.4-35.0) 04/22/18 20:45 Ada % (Auto) 9.4 % (0.0-7.3) H 04/22/18 20:45 Eos % (Auto) 0.6 % (0.0-4.3) 04/22/18 20:45 Baso % (Auto) 0.4 % (0.0-1.8) 04/22/18 20:45 Lymph # 2.8 K/mm3 (1.2-5.4) 04/22/18 20:45 Ada # 0.8 K/mm3 (0.0-0.8) 04/22/18 20:45 Eos # 0.1 K/mm3 (0.0-0.4) 04/22/18 20:45 Baso # 0.0 K/mm3 (0.0-0.1) 04/22/18 20:45 Seg Neutrophils % 57.8 % (40.0-70.0) 04/22/18 20:45 Seg Neutrophils # 5.1 K/mm3 (1.8-7.7) 04/22/18 20:45 PT 13.9 Sec. (12.2-14.9) 04/22/18 20:45 INR 1.01 (0.87-1.13) 04/22/18 20:45 APTT 24.1 Sec. (24.2-36.6) L 04/22/18 20:45 Sodium 133 mmol/L (137-145) L 04/22/18 20:45 Potassium 4.2 mmol/L (3.6-5.0) 04/22/18 20:45 Chloride 95.5 mmol/L (98-107) L 04/22/18 20:45 Carbon Dioxide 25 mmol/L (22-30) 04/22/18 20:45 Anion Gap 17 mmol/L 04/22/18 20:45 BUN 45 mg/dL (7-17) H 04/22/18 20:45 Creatinine 1.0 mg/dL (0.7-1.2) 04/22/18 20:45 Estimated GFR > 60 ml/min 04/22/18 20:45 BUN/Creatinine Ratio 45 % 04/22/18 20:45 Glucose 134 mg/dL (65-100) H 04/22/18 20:45 POC Glucose 123 (70-105) H 04/23/18 13:01 Calcium 9.3 mg/dL (8.4-10.2) 04/22/18 20:45 Magnesium 2.00 mg/dL (1.7-2.3) 04/22/18 22:46 Total Bilirubin 0.70 mg/dL (0.1-1.2) 04/22/18 20:45 AST 15 units/L (5-40) 04/22/18 20:45 ALT 13 units/L (7-56) 04/22/18 20:45 Alkaline Phosphatase 35 units/L (35-129) 04/22/18 20:45 Total Creatine Kinase 71 units/L (30-135) 04/22/18 22:46 CK-MB (CK-2) 1.5 ng/mL (0.0-4.0) 04/22/18 20:45 CK-MB (CK-2) Rel Index 2.0 (0-4) 04/22/18 20:45 Troponin T < 0.010 ng/mL (0.00-0.029) 04/22/18 20:45 Total Protein 6.8 g/dL (6.3-8.2) 04/22/18 20:45 Albumin 4.1 g/dL (3.9-5) 04/22/18 20:45 Albumin/Globulin Ratio 1.5 % 04/22/18 20:45 TSH 0.720 mlU/mL (0.270-4.200) 04/23/18 08:01 Urine Opiates Screen Presumptive negative 04/23/18 07:38 Urine Methadone Screen Presumptive negative 04/23/18 07:38 Ur Barbiturates Screen Presumptive negative 04/23/18 07:38 Ur Phencyclidine Scrn Presumptive negative 04/23/18 07:38 Ur Amphetamines Screen Presumptive negative 04/23/18 07:38 U Benzodiazepines Scrn Presumptive negative 04/23/18 07:38 Urine Cocaine Screen Presumptive negative 04/23/18 07:38 U Marijuana (THC) Screen Presumptive negative 04/23/18 07:38 Drugs of Abuse Note Disclamer 04/23/18 07:38 Blood Type B POSITIVE 04/22/18 22:55 Antibody Screen Negative 04/22/18 22:55 Crossmatch See Detail 04/22/18 22:55
[2018-04-23] MEDS ORDERED: VERSED ONE (15:07)
[2018-04-23] MEDS ORDERED: DIPRIVAN 10 MG/ML IV ONE (15:08)
--- NOTE | 2018-04-23 15:41 | Operative Report ---
Operative Report Operative Report: SURGEON: Jani Lentz MD Date of service 04/23/18 EGD REPORT PREOPERATIVE DIAGNOSIS and POSTOPERATIVE DIAGNOSIS: Melena, GI bleed ESTIMATED BLOOD LOSS: None DESCRIPTION OF PROCEDURE: A high-resolution EGD scope was passed through the oropharynx, esophagus, stomach, and second portion of duodenum. The scope was carefully withdrawn. Retroflexion was performed in the stomach. At the end of the procedure, the scope was cleaned using normal technique. Vital signs monitored continuously throughout. SEDATION: Provided by Anesthesiology Services. COMPLICATIONS: None. FINDINGS: * Normal duodenum, no blood * J shaped stomach, no blood, otherwise normal stomach * 4cm hiatal hernia * GE junction at 38cm from the incisors * Remainder of the exam was normal RECOMMENDATIONS: * No bleeding on exam of upper GI tract so this must be a mid/lower GI bleed. Stat CT angio ordered to isolate the source, if positive please consult IR. If negative, then will need to consider colonoscopy
--- NOTE | 2018-04-23 16:24 | Anesthesia Consultation ---
Anesthesia Consult and Med Hx Date of service: 04/23/18 - Airway Anesthetic Teeth Evaluation: Good ROM Head & Neck: Adequate Mental/Hyoid Distance: Adequate Mallampati Class: Class III Intubation Access Assessment: Good - Pulmonary Exam CTA: Yes - Cardiac Exam Cardiac Exam: No Murmur - Pre-Operative Health Status ASA Pre-Surgery Classification: ASA3 Proposed Anesthetic Plan: MAC - Pulmonary Hx Asthma: No COPD: No Hx Pneumonia: No - Cardiovascular System Hx Hypertension: Yes Hx Pacemaker: No Hx Internal Defibrillator: No - Central Nervous System Hx Psychiatric Problems: No - Endocrine Hx End Stage Renal Disease: No Hx Insulin Dependent Diabetes: Yes
--- NOTE | 2018-04-23 16:24 | Anesthesia Day of Surgery ---
Anesthesia Day of Surgery - Day of Surgery Patient Examined: Yes Patient H&P Reviewed: Yes Patient is NPO: Yes Beta Blockers: No
--- NOTE | 2018-04-23 20:40 | Cat Scan Report ---
PROCEDURE: CT head without contrast. TECHNIQUE: Computerized tomography of the head was performed without contrast material. CT DOSE LENGTH PRODUCT: 920.48. mGycm HISTORY: Syncope. COMPARISONS: None. FINDINGS: The ventricles are normal in size. The yadav matter and white matter appear normal. There are no mass lesions. There is no intracranial hemorrhage. The calvarium appears intact. The mastoid air cells are clear. There is minimal mucosal thickening in the left maxillary sinus. IMPRESSION: Normal study of the brain. This document is electronically signed by John Reyes MD., April 23 2018 08:38:26 PM ET
--- NOTE | 2018-04-23 20:45 | Cat Scan Report ---
PROCEDURE: CT chest without contrast. TECHNIQUE: Computerized axial tomography of the chest was performed without contrast material. This study is performed without intravenous contrast and the sensitivity for pathology, including neoplasm s, adenopathy, abscess, pulmonary embolism and aortic dissection, is reduced. CT DOSE LENGTH PRODUCT: 1025.25 mGycm HISTORY: Respiratory failure. COMPARISONS: None. FINDINGS: The trachea and central bronchi appear normal. There is some minimal subsegmental atelectasis in the left lower lobe. There is mild subsegmental atelectasis in the superior segment of the right lower lo be. The lungs are otherwise clear. There are no pleural effusions. The thoracic aorta has a normal ca liber. There is no mediastinal adenopathy. The heart size is normal. There is a small hiatal hernia. The thoracic skeleton appears intact. IMPRESSION: No significant abnormality identified. This document is electronically signed by John Reyes MD., April 23 2018 08:43:58 PM ET
[2018-04-23] MEDS: PROTONIX 80 MG in NACL 0.9% 100 ML IV SCH (20:55)
--- NOTE | 2018-04-23 20:59 | Magnetic Resonance Report ---
PROCEDURE: MR BRAIN WO/W CON HISTORY: Hx of colon cancer. Syncopal spells. FINDINGS: MRI of the brain was performed using sagittal T1, axial diffusion, axial T2*gradient echo, axial T2, axial FLAIR, coronal FLAIR and axial T1 and axial and coronal postcontrast T1-weighted imag es obtained following the intravenous administration of gadolinium-based contrast. Comparison is made to the CT of the head performed earlier in the day. These images demonstrate that there is complete corpus callosum. There is no Chiari malformation. Diffusion-weighted images demonstrate no acute transcortical or acute lacunar infarct. There is normal yadav-white differentiation. There are a few scattered foci of increased FLAIR signal in the subcortical white matter likely mild chronic small vessel ischemic change. No suspect focal brain lesion is identified. There are normal flow voids in the vertebral arteries, basilar artery and both internal carotid arter ies. The mastoid air cells and middle ears appear clear. There is mild sinus thickening without acute sinu sitis. Following administration of intravenous contrast, no abnormal enhancement is seen. IMPRESSION: No acute transcortical or acute lacunar infarct No suspect focal brain lesion This document is electronically signed by Jonathon Cha MD., April 23 2018 08:57:05 PM ET
--- NOTE | 2018-04-23 21:11 | Cat Scan Report ---
PROCEDURE: CT ANGIO ABDOMEN PELVIS HISTORY: active GI bleed, negative EGD Contrast-enhanced CT angiography of the abdomen and pelvis was performed following intravenous and de monstration of iodinated contrast. Data was reformatted in the sagittal and coronal planes. Compariso n is made to prior CT examination February 09, 2018. There is some bibasilar atelectasis. There is a hiatal hernia which is somewhat larger on the current exam than on the prior. ABDOMEN: The abdominal aorta is normal in size. The celiac axis, superior mesenteric artery and inferior mesenteric artery are all patent. There are single bilateral renal arteries which are patent. No suspect focal hepatic lesion is seen. The spleen is normal in size. There is a splenule. The adrenal glands and pancreas are within normal limits. The gallbladder is unremarkable. There is no renal or ureteral calculus. There is no small or large bowel obstruction. There is a fat- containing umbilical hernia. Pelvis: The common iliac, internal iliac and external iliac arteries are widely patent. There is a normal clau endix. There is no evidence of diverticulitis. The uterus is enlarged with multiple leiomyomas. The u rinary bladder is unremarkable. There are bilateral fat-containing inguinal hernias. IMPRESSION: Hiatal hernia, larger than on prior exam ABDOMEN: The abdominal aorta is normal in size The mesenteric arterial vasculature and renal arterial vasculature are widely patent No acute gastrointestinal hemorrhage is seen Pelvis: The pelvic arterial vasculature is widely patent no evidence of acute diverticulitis Uterine leiomyomas This document is electronically signed by Jonathon Cha MD., April 23 2018 09:08:59 PM ET
--- NOTE | 2018-04-23 21:46 | Consultation ---
CONSULTING PHYSICIAN: Ivan Neri MD REASON FOR CONSULTATION: Hypotension and acute GI bleed. CHIEF COMPLAINT AND HISTORY OF PRESENT ILLNESS: The patient is a 63-year-old -[place] female with past medical history significant for a diagnosis of colon cancer for which she had a surgery many years ago, she tells me with a followup colonoscopy in 2015, which she believes was normal. He came in to the Emergency Room complaining about a couple of days of lightheadedness, fatigue, dyspnea on exertion, syncopal and near syncopal episodes. She admitted to notice some dark stools. She denied any hematochezia. She was evaluated in the Emergency Room. She was anemic, but not significantly so. Her initial hemoglobin was 11.0. She was admitted to the step-down unit for evaluation of an acute GI bleed. While in the step down unit, she continued to be lightheaded. She had a near-syncopal episode and her blood pressures dropped to systolics as low as the 80s. Repeat hemoglobin testing also showed hemoglobin had dropped to a level of 6.6. She had some bright red blood per rectum, according to the nurse, and she was transferred in to the intensive care unit. When I stopped by to see her, she was getting a blood transfusion. She was resting in bed, looked a little pale, felt better overall. Denied again any hematemesis, nausea or vomiting. Complained of some left lower quadrant-type pain, complained of generalized malaise prior to her presentation. Denied history of diverticulitis or diverticulosis was far as she knows. When asked about tobacco, she has about a [id number] tobacco smoking history, but quit smoking well over 5-10 years ago, according to her. This really is as much of the history of presentation as I have. PAST MEDICAL HISTORY: Hypertension, diabetes, history of colon cancer. She is obese. PAST SURGICAL HISTORY: I believe she has had a colon surgery in the past. MEDICATIONS: She was on at the time I stopped by to see were reviewed, pertinent medications include the following: She was on Tylenol 650 mg p.o. q. 4 hours p.r.n. fever greater than 101. Insulin via sliding scale, Zofran 4 mg IV q. 8 hours p.r.n. nausea and vomiting, Protonix drip was going at 8 mg per hour, normal saline was going at 75 mL per hour. ALLERGIES: No known drug allergies. DIET: Obese lady, denies acute weight loss or gain in the preceding few weeks to months. FAMILY AND SOCIAL HISTORY: Lives in the community. Denies current alcohol, tobacco, or illicit drug use or abuse. She does have a remote tobacco smoking history. Family history otherwise noncontributory. REVIEW OF SYSTEMS: She has syncopal episodes. Denied any new-onset focal weakness. She has had gross hematochezia now. Denied heat or cold intolerance. Denied polydipsia, polyuria. Denied any new rashes on her body. Denied any new lumps, bumps, or swellings. Complete 13-system review of systems obtained. Pertinent positives and/or negatives as in body of history above, otherwise they are noncontributory. PHYSICAL EXAMINATION: VITAL SIGNS: At presentation, she was afebrile, temperature 97.7 degrees Fahrenheit with a pulse of 101, respiratory rate of 18, blood pressure was 96/65, O2 sats 100%, inspired oxygen concentration was not recorded. When I stopped by to see her, she was 99% on room air. Again, her blood pressure dropped to as low as 81/48. GENERAL: She is a well-built, elderly-looking -[place] female, normocephalic, atraumatic, talking to me in full sentences without overt respiratory distress. HEAD, EYES, EARS, NOSE AND THROAT: She is anicteric. No conjunctival erythema. Oropharynx is moist. Oropharynx is a Mallampati number 2 oropharynx. She has mild oropharyngeal pallor. No gross jugular venous distention. Grossly, no palpable lymph nodes in the supraclavicular or submandibular lymph node chains. She seems to have some thyroid enlargement towards the left side on palpation. LUNGS: Auscultation of both lung khalil unremarkable. Lungs were clear bilaterally. HEART: Heart sounds 1 and 2 are heard. They were regular in rate and rhythm at the time of my evaluation, without rubs or murmurs. ABDOMEN: Soft, full, bowel sounds are positive and hyperactive, no palpable hepatosplenomegaly. She is nontender. EXTREMITIES: Without overt digital clubbing, cyanosis, no pedal edema. NEUROLOGIC: Pupils equal, round, about 5 mm, reactive to light. Extraocular muscle movements are intact. She moves all 4 extremities spontaneously. The skin is of normal turgor without overt cellulitis or rash. She did have heme positive stool earlier on inspection. Mood is appropriate. Her affect is anxious. LABORATORY DATA: From my review, white cell count 8700, hemoglobin 11.0, hematocrit 32.2, platelet count 127, no band forms. INR 1.01. Serum sodium 133, potassium 4.2, chloride 96, bicarbonate 25, BUN 45, creatinine 1.0, glucose 134. Liver function tests otherwise within normal limits. Urine drug screen was negative. Stool occult testing was positive. RADIOLOGICAL DATA: Chest x-ray has been reviewed and it was essentially a clear chest x-ray. She does have a right PICC line in place right now with the tip in the cavoatrial junction. ASSESSMENT AND PLAN: 1. Acute gastrointestinal bleed. 2. Syncope. 3. Symptomatic anemia. 4. Obesity. 5. Diabetes. 6. History of colon cancer. 7. History of hypertension. PLAN: She appears to be suffering from relative intravascular volume depletion with resultant shock. I doubt we are dealing with septic shock. She has responded well to volume resuscitation at this point and she is now status post PICC line. 1. Continue blood transfusions as orders. 2. Continue serial hemoglobin and hematocrit level testing. 3. Continue the Protonix drip, although this does appear to be a lower GI bleed at this point, we cannot rule out a component of upper GI bleeding. GI consultation has been placed and we are awaiting their evaluation. She likely will need a colonoscopy, plus or minus CT of the abdomen and pelvis, which I will probably order when she is more stable in this lady that has a history of colon cancer. The question is whether she is also going to be able to receive IV contrast, but the plan will be to definitely image her before discharge. I do await the health science instructor's recommendations. Glycemic control will be via sliding scale insulin. We will continue the IV normal saline in light of intravascular volume depletion and prerenal azotemia, which I do feel is due to the volume depletion, but we cannot rule out again an element of an upper gastrointestinal bleed causing the elevated BUN. I have encouraged continued tobacco abstinence. Vasopressors will be started if mean arterial pressures again drop below 65 despite the volume resuscitation. Flu and pneumonia vaccination will be addressed per protocol. Thank you very much for the consult Dr. Neri. We will follow along and make further recommendations as picture progresses/becomes clearer. She is critically ill and at high risk for further deterioration including the risk of . JOB# [id number] SAMANTHA/JASPAL PALENCIA
[2018-04-24] MEDS: HumaLOG SUB-Q SCH ×7 (04:00→20:12)
[2018-04-24 05:58] LABS: Hematocrit 28.6 % (30.3-42.9); Hemoglobin 9.9 gm/dl (10.1-14.3); Mean Corpuscular HGB Conc 35 % (30-34); Mean Corpuscular Volume 91 fl (79-97); Red Blood Count 3.13 M/mm3 (3.65-5.03)
[2018-04-24 06:15] LABS: BUN/Creatinine Ratio 17; Blood Urea Nitrogen 10 mg/dL (7-17); Calcium 8.1 mg/dL (8.4-10.2); Hemolysis Index 6
[2018-04-24 07:01] LABS: Platelet Count 64 K/mm3 (140-440)
--- NOTE | 2018-04-24 10:38 | Gastroenterology Progress Note ---
Assessment and Plan GI: anemia w/ negative EGD and CTA - PPI qd - follow h/h - probable colonoscopy in am - will follow Subjective Date of service: 04/24/18 Interval history: - denies signs bleeding overnight Objective - Constitutional Vitals: Temp Pulse Resp BP Pulse Ox 98.5 F 71 17 110/65 98 04/24/18 08:00 04/24/18 10:10 04/24/18 10:10 04/24/18 10:10 04/24/18 10:10 General appearance: no acute distress - EENT Eyes: PERRL - Neck Neck: supple - Respiratory Respiratory: bilateral: CTA - Cardiovascular Rhythm: regular Heart Sounds: Present: S1 & S2 - Gastrointestinal General gastrointestinal: Present: soft, non-tender, non-distended - Labs CBC & Chem 7: 04/24/18 05:20 04/24/18 05:20 Labs: Laboratory Results - last 24 hr 04/22/18 04/23/18 04/23/18 22:55 07:38 13:01 WBC RBC Hgb Hct MCV MCH MCHC RDW Plt Count Sodium Potassium Chloride Carbon Dioxide Anion Gap BUN Creatinine Estimated GFR BUN/Creatinine Ratio Glucose POC Glucose 123 H Calcium Urine Opiates Screen Presumptive negative Urine Methadone Screen Presumptive negative Ur Barbiturates Screen Presumptive negative Ur Phencyclidine Scrn Presumptive negative Ur Amphetamines Screen Presumptive negative U Benzodiazepines Scrn Presumptive negative Urine Cocaine Screen Presumptive negative U Marijuana (THC) Screen Presumptive negative Drugs of Abuse Note Disclamer Blood Type B POSITIVE Antibody Screen Negative Crossmatch See Detail 04/23/18 04/23/18 04/24/18 16:09 20:36 00:39 WBC RBC Hgb Hct MCV MCH MCHC RDW Plt Count Sodium Potassium Chloride Carbon Dioxide Anion Gap BUN Creatinine Estimated GFR BUN/Creatinine Ratio Glucose POC Glucose 168 H 98 107 H Calcium Urine Opiates Screen Urine Methadone Screen Ur Barbiturates Screen Ur Phencyclidine Scrn Ur Amphetamines Screen U Benzodiazepines Scrn Urine Cocaine Screen U Marijuana (THC) Screen Drugs of Abuse Note Blood Type Antibody Screen Crossmatch 04/24/18 04/24/18 04/24/18 05:07 05:20 05:20 WBC 7.0 RBC 3.13 L Hgb 9.9 L D Hct 28.6 L D MCV 91 MCH 32 MCHC 35 H RDW 15.0 Plt Count 64 L Sodium 136 L Potassium 3.6 Chloride 102.9 Carbon Dioxide 23 Anion Gap 14 BUN 10 Creatinine 0.6 L Estimated GFR > 60 BUN/Creatinine Ratio 17 Glucose 98 POC Glucose 104 Calcium 8.1 L Urine Opiates Screen Urine Methadone Screen Ur Barbiturates Screen Ur Phencyclidine Scrn Ur Amphetamines Screen U Benzodiazepines Scrn Urine Cocaine Screen U Marijuana (THC) Screen Drugs of Abuse Note Blood Type Antibody Screen Crossmatch 04/24/18 08:47 WBC RBC Hgb Hct MCV MCH MCHC RDW Plt Count Sodium Potassium Chloride Carbon Dioxide Anion Gap BUN Creatinine Estimated GFR BUN/Creatinine Ratio Glucose POC Glucose 101 Calcium Urine Opiates Screen Urine Methadone Screen Ur Barbiturates Screen Ur Phencyclidine Scrn Ur Amphetamines Screen U Benzodiazepines Scrn Urine Cocaine Screen U Marijuana (THC) Screen Drugs of Abuse Note Blood Type Antibody Screen Crossmatch
--- NOTE | 2018-04-24 12:30 | Progress Note ---
Assessment and Plan Assessment and plan: Patient is a 63 y/o female with PMH of HTN, DM, and colon cancer (s/p resection in 2018) who presented to ED with c/o dark stools with associated lightheadedness, weakness, SOB, and syncope. This am was noted to remain hypotensive and a recurrent syncope with concern for possible seizure. Syncope GI bleed- No new bleeding noted Vasogeneic shock- Resolved Acute blood loss Anemia presumed seizure HTN DM plan Continue supportive care EGD normal, await Colonoscopy No evidence of seizure, S/P 2 units PRBC GI following, H/H is stable. Intensvisit following MRI with no evidence of infarct continue accu check and blood glucose monitoring. DVT/GI prophy The high probability of a clinically significant, sudden or life threatening deterioration of the [cardiovascular, u.s. representative] system(s) required my full and direct attention, intervention and personal management. The aggregate critical care time was [75] minutes. This time is in addition to time spent performing reported procedures but includes the following: [x] Data Review and interpretation [x] Patient assessment and monitoring of vital signs [x] Documentation [x] Medication orders and management History Interval history: Patient seen and examined this am in no acute distress. No new complaints. no abdominal pain. Hospitalist Physical - Physical exam Narrative exam: General appearance: Present: no acute distress, well-nourished, obese - EENT Eyes: Present: PERRL ENT: hearing intact - Neck Neck: Present: supple, normal ROM - Respiratory Respiratory effort: normal Respiratory: bilateral: diminished - Cardiovascular Rhythm: regular Heart Sounds: Present: S1 & S2, systolic murmur - Extremities Extremities: no ischemia, pulses intact, pulses symmetrical, No edema, normal temperature, normal color, Full ROM Peripheral Pulses: within normal limits - Abdominal General gastrointestinal: soft, non-tender, non-distended, normal bowel sounds - Integumentary Integumentary: Present: clear, warm, dry - Psychiatric Psychiatric: appropriate mood/affect, intact judgment & insight, cooperative - Neurologic Neurologic: CNII-XII intact, moves all extremities - Allied Health Allied health notes reviewed: nursing, RT - Constitutional Vitals: Temp Pulse Resp BP Pulse Ox 97.9 F 76 15 122/84 99 04/24/18 12:00 04/24/18 12:00 04/24/18 12:00 04/24/18 12:00 04/24/18 12:00 General appearance: Present: no acute distress, well-nourished, obese Results - Labs CBC & Chem 7: 04/24/18 05:20 04/24/18 05:20 Labs: Laboratory Last Values WBC 7.0 K/mm3 (4.5-11.0) 04/24/18 05:20 RBC 3.13 M/mm3 (3.65-5.03) L 04/24/18 05:20 Hgb 9.9 gm/dl (10.1-14.3) L D 04/24/18 05:20 Hct 28.6 % (30.3-42.9) L D 04/24/18 05:20 MCV 91 fl (79-97) 04/24/18 05:20 MCH 32 pg (28-32) 04/24/18 05:20 MCHC 35 % (30-34) H 04/24/18 05:20 RDW 15.0 % (13.2-15.2) 04/24/18 05:20 Plt Count 64 K/mm3 (140-440) L 04/24/18 05:20 Lymph % (Auto) 31.8 % (13.4-35.0) 04/22/18 20:45 [place] % (Auto) 9.4 % (0.0-7.3) H 04/22/18 20:45 Eos % (Auto) 0.6 % (0.0-4.3) 04/22/18 20:45 Baso % (Auto) 0.4 % (0.0-1.8) 04/22/18 20:45 Lymph # 2.8 K/mm3 (1.2-5.4) 04/22/18 20:45 [place] # 0.8 K/mm3 (0.0-0.8) 04/22/18 20:45 Eos # 0.1 K/mm3 (0.0-0.4) 04/22/18 20:45 Baso # 0.0 K/mm3 (0.0-0.1) 04/22/18 20:45 Seg Neutrophils % 57.8 % (40.0-70.0) 04/22/18 20:45 Seg Neutrophils # 5.1 K/mm3 (1.8-7.7) 04/22/18 20:45 PT 13.9 Sec. (12.2-14.9) 04/22/18 20:45 INR 1.01 (0.87-1.13) 04/22/18 20:45 APTT 24.1 Sec. (24.2-36.6) L 04/22/18 20:45 Sodium 136 mmol/L (137-145) L 04/24/18 05:20 Potassium 3.6 mmol/L (3.6-5.0) 04/24/18 05:20 Chloride 102.9 mmol/L (98-107) 04/24/18 05:20 Carbon Dioxide 23 mmol/L (22-30) 04/24/18 05:20 Anion Gap 14 mmol/L 04/24/18 05:20 BUN 10 mg/dL (7-17) 04/24/18 05:20 Creatinine 0.6 mg/dL (0.7-1.2) L 04/24/18 05:20 Estimated GFR > 60 ml/min 04/24/18 05:20 BUN/Creatinine Ratio 17 % 04/24/18 05:20 Glucose 98 mg/dL (65-100) 04/24/18 05:20 POC Glucose 101 (70-105) 04/24/18 08:47 Calcium 8.1 mg/dL (8.4-10.2) L 04/24/18 05:20 Magnesium 2.00 mg/dL (1.7-2.3) 04/22/18 22:46 Total Bilirubin 0.70 mg/dL (0.1-1.2) 04/22/18 20:45 AST 15 units/L (5-40) 04/22/18 20:45 ALT 13 units/L (7-56) 04/22/18 20:45 Alkaline Phosphatase 35 units/L (35-129) 04/22/18 20:45 Total Creatine Kinase 71 units/L (30-135) 04/22/18 22:46 CK-MB (CK-2) 1.5 ng/mL (0.0-4.0) 04/22/18 20:45 CK-MB (CK-2) Rel Index 2.0 (0-4) 04/22/18 20:45 Troponin T < 0.010 ng/mL (0.00-0.029) 04/22/18 20:45 Total Protein 6.8 g/dL (6.3-8.2) 04/22/18 20:45 Albumin 4.1 g/dL (3.9-5) 04/22/18 20:45 Albumin/Globulin Ratio 1.5 % 04/22/18 20:45 TSH 0.720 mlU/mL (0.270-4.200) 04/23/18 08:01 Urine Opiates Screen Presumptive negative 04/23/18 07:38 Urine Methadone Screen Presumptive negative 04/23/18 07:38 Ur Barbiturates Screen Presumptive negative 04/23/18 07:38 Ur Phencyclidine Scrn Presumptive negative 04/23/18 07:38 Ur Amphetamines Screen Presumptive negative 04/23/18 07:38 U Benzodiazepines Scrn Presumptive negative 04/23/18 07:38 Urine Cocaine Screen Presumptive negative 04/23/18 07:38 U Marijuana (THC) Screen Presumptive negative 04/23/18 07:38 Drugs of Abuse Note Disclamer 04/23/18 07:38 Blood Type B POSITIVE 04/22/18 22:55 Antibody Screen Negative 04/22/18 22:55 Crossmatch See Detail 04/22/18 22:55
[2018-04-24] MEDS: PROTONIX 80 MG in NACL 0.9% 100 ML IV SCH ×2 (12:41→23:18)
[2018-04-24 13:50] LABS: Hematocrit 28.2 % (30.3-42.9); Hemoglobin 9.7 gm/dl (10.1-14.3)
--- NOTE | 2018-04-24 15:50 | Progress Note ---
Assessment and Plan Acute gastrointestinal bleed. Syncope. Symptomatic anemia. Obesity. Diabetes. History of colon cancer. History of hypertension - S/P 2 units PRBC - continue PPI drip; tentatively transition to double dose PPI with negative EGD - GI following, H/H is stable. - tentatively for colonoscopy - continue bowel prep with go lytely - continue serial H&H - remains NPO (advance diet per GI team) - supplemental oxygen as neded to keep O2 sats > 90% - No evidence of seizure, - MRI with no evidence of infarct - PT/OT/ROM ecercises as tolerated - VTE prophylaxis with SCD's - gentle hydration while NPO - continue glycemic control with accuchecks q6h and SSI for target BG 140-180 mg/dl acutely - aspiration precautions - mobility protocol for pressure ulcer prophylaxis - continue supportive care - continue other care per attending / other consultants - continue to observe in ICU for gross bleeding and hemodynamicaly ... re-evaluate in am & prn The high probability of a clinically significant, sudden or life-threatening deterioration of the [cardiac, neurology] system(s) required my full and direct attention, intervention and personal management. The aggregate critical care time was [35] minutes without overlap. Time includes spent on; [x] Data Review and interpretation [x] Patient assessment and monitoring of vital signs [x] Documentation [x] Medication orders and management Subjective Date of service: 04/24/18 Principal diagnosis: Acute G.I. bleed; Syncope; Symptomatic anemia; Obesity; Di abetes. Interval history: Patient is seen today for: Acute gastrointestinal bleed; Syncope; Symptomatic anemia; Obesity; Diabetes. Seen and examined at bedside; 24hour events reviewed; nursing and respiratory care staff consulted; no adverse overnight events reported to me; resting peacefully in bed; s/p negative EGD; CTA negative for abdomino-pelvic bleeding source; H&H holding Objective Vital Signs - 12hr 04/24/18 04/24/18 04/24/18 03:50 04:00 04:10 Temperature 98.8 F Pulse Rate 59 L 68 62 Pulse Rate [ 86 From Monitor] Pulse Rate [ 86 Left Dorsalis Pedis] Respiratory 15 17 13 Rate Blood Pressure 102/75 108/65 102/75 O2 Sat by Pulse 100 100 97 Oximetry 04/24/18 04/24/18 04/24/18 04:20 04:30 04:33 Temperature Pulse Rate 58 L 64 Pulse Rate [ From Monitor] Pulse Rate [ 58 L Left Dorsalis Pedis] Respiratory 15 15 Rate Blood Pressure 102/75 101/64 O2 Sat by Pulse 98 98 Oximetry 04/24/18 04/24/18 04/24/18 04:40 04:50 05:00 Temperature Pulse Rate 52 L 54 L 65 Pulse Rate [ From Monitor] Pulse Rate [ Left Dorsalis Pedis] Respiratory 17 14 16 Rate Blood Pressure 101/64 108/65 102/63 O2 Sat by Pulse 99 100 94 Oximetry 04/24/18 04/24/18 04/24/18 05:10 05:20 05:30 Temperature Pulse Rate 64 69 56 L Pulse Rate [ From Monitor] Pulse Rate [ Left Dorsalis Pedis] Respiratory 15 17 17 Rate Blood Pressure 102/63 101/64 107/66 O2 Sat by Pulse 97 100 99 Oximetry 04/24/18 04/24/18 04/24/18 05:40 05:50 06:00 Temperature Pulse Rate 55 L 61 55 L Pulse Rate [ From Monitor] Pulse Rate [ Left Dorsalis Pedis] Respiratory 16 12 11 L Rate Blood Pressure 107/66 107/66 113/58 O2 Sat by Pulse 100 99 98 Oximetry 04/24/18 04/24/18 04/24/18 06:10 06:20 06:30 Temperature Pulse Rate 74 81 58 L Pulse Rate [ From Monitor] Pulse Rate [ Left Dorsalis Pedis] Respiratory 15 17 18 Rate Blood Pressure 113/58 113/58 117/59 O2 Sat by Pulse 95 92 97 Oximetry 04/24/18 04/24/18 04/24/18 06:40 06:50 07:00 Temperature Pulse Rate 104 H 70 95 H Pulse Rate [ From Monitor] Pulse Rate [ Left Dorsalis Pedis] Respiratory 19 17 22 Rate Blood Pressure 117/59 117/59 117/59 O2 Sat by Pulse 100 99 100 Oximetry 04/24/18 04/24/18 04/24/18 07:10 07:20 07:30 Temperature Pulse Rate 66 61 55 L Pulse Rate [ From Monitor] Pulse Rate [ Left Dorsalis Pedis] Respiratory 16 13 14 Rate Blood Pressure 120/67 120/67 115/64 O2 Sat by Pulse 98 99 99 Oximetry 04/24/18 04/24/18 04/24/18 07:40 07:50 08:00 Temperature 98.5 F Pulse Rate 80 82 64 Pulse Rate [ 69 From Monitor] Pulse Rate [ 69 Left Dorsalis Pedis] Respiratory 12 18 16 Rate Blood Pressure 115/64 115/64 115/63 O2 Sat by Pulse 98 96 94 Oximetry 04/24/18 04/24/18 04/24/18 08:10 08:20 08:30 Temperature Pulse Rate 61 59 L 74 Pulse Rate [ From Monitor] Pulse Rate [ Left Dorsalis Pedis] Respiratory 18 13 15 Rate Blood Pressure 115/63 115/64 105/64 O2 Sat by Pulse 98 98 97 Oximetry 04/24/18 04/24/18 04/24/18 08:40 08:50 09:00 Temperature Pulse Rate 81 78 87 Pulse Rate [ From Monitor] Pulse Rate [ Left Dorsalis Pedis] Respiratory 13 16 12 Rate Blood Pressure 105/64 105/64 110/67 O2 Sat by Pulse 98 99 97 Oximetry 04/24/18 04/24/18 04/24/18 09:10 09:20 09:30 Temperature Pulse Rate 87 69 70 Pulse Rate [ From Monitor] Pulse Rate [ Left Dorsalis Pedis] Respiratory 15 20 17 Rate Blood Pressure 110/67 110/67 114/57 O2 Sat by Pulse 98 93 99 Oximetry 04/24/18 04/24/18 04/24/18 09:40 09:50 10:00 Temperature Pulse Rate 73 69 71 Pulse Rate [ From Monitor] Pulse Rate [ Left Dorsalis Pedis] Respiratory 19 19 18 Rate Blood Pressure 114/57 114/57 110/65 O2 Sat by Pulse 99 99 97 Oximetry 04/24/18 04/24/18 04/24/18 10:10 10:20 10:30 Temperature Pulse Rate 71 79 75 Pulse Rate [ From Monitor] Pulse Rate [ Left Dorsalis Pedis] Respiratory 17 17 16 Rate Blood Pressure 110/65 114/57 101/64 O2 Sat by Pulse 98 94 96 Oximetry 04/24/18 04/24/18 04/24/18 10:40 10:50 11:00 Temperature Pulse Rate 84 74 81 Pulse Rate [ From Monitor] Pulse Rate [ Left Dorsalis Pedis] Respiratory 17 19 18 Rate Blood Pressure 101/64 101/64 117/71 O2 Sat by Pulse 96 96 99 Oximetry 04/24/18 04/24/18 04/24/18 11:10 11:20 11:30 Temperature Pulse Rate 74 75 76 Pulse Rate [ From Monitor] Pulse Rate [ Left Dorsalis Pedis] Respiratory 15 18 14 Rate Blood Pressure 117/71 117/71 116/78 O2 Sat by Pulse 98 81 L 98 Oximetry 04/24/18 04/24/18 04/24/18 11:40 11:50 12:00 Temperature 97.9 F Pulse Rate 85 78 88 Pulse Rate [ 76 From Monitor] Pulse Rate [ 76 Left Dorsalis Pedis] Respiratory 16 16 15 Rate Blood Pressure 116/78 116/78 122/84 O2 Sat by Pulse 97 98 96 Oximetry 04/24/18 04/24/18 04/24/18 12:10 12:20 12:30 Temperature Pulse Rate 81 88 86 Pulse Rate [ From Monitor] Pulse Rate [ Left Dorsalis Pedis] Respiratory 17 14 19 Rate Blood Pressure 122/84 122/84 126/79 O2 Sat by Pulse 99 98 99 Oximetry 04/24/18 04/24/18 04/24/18 12:40 12:50 13:00 Temperature Pulse Rate 78 67 91 H Pulse Rate [ From Monitor] Pulse Rate [ Left Dorsalis Pedis] Respiratory 20 14 14 Rate Blood Pressure 126/79 126/79 126/79 O2 Sat by Pulse 97 97 97 Oximetry 04/24/18 04/24/18 04/24/18 13:10 13:20 13:30 Temperature Pulse Rate 76 76 77 Pulse Rate [ From Monitor] Pulse Rate [ Left Dorsalis Pedis] Respiratory 15 12 15 Rate Blood Pressure 119/95 119/95 119/95 O2 Sat by Pulse 94 97 93 Oximetry 04/24/18 04/24/18 04/24/18 13:40 13:50 14:00 Temperature Pulse Rate 71 80 69 Pulse Rate [ From Monitor] Pulse Rate [ Left Dorsalis Pedis] Respiratory 14 15 14 Rate Blood Pressure 112/73 112/73 118/73 O2 Sat by Pulse 98 90 96 Oximetry 04/24/18 04/24/18 04/24/18 14:10 14:20 14:30 Temperature Pulse Rate 87 74 70 Pulse Rate [ From Monitor] Pulse Rate [ Left Dorsalis Pedis] Respiratory 14 17 18 Rate Blood Pressure 118/73 118/73 120/75 O2 Sat by Pulse 87 99 95 Oximetry 04/24/18 04/24/18 04/24/18 14:40 14:50 15:00 Temperature Pulse Rate 96 H 76 65 Pulse Rate [ From Monitor] Pulse Rate [ Left Dorsalis Pedis] Respiratory 17 16 19 Rate Blood Pressure 120/75 120/75 121/69 O2 Sat by Pulse 99 95 95 Oximetry 04/24/18 04/24/18 15:10 15:20 Temperature Pulse Rate 83 78 Pulse Rate [ From Monitor] Pulse Rate [ Left Dorsalis Pedis] Respiratory 20 19 Rate Blood Pressure 121/69 121/69 O2 Sat by Pulse 97 97 Oximetry Constitutional: no acute distress, alert, other (elderly looking AAF, normocephalic and atraumatic with mildly increased respiratory effort at rest) Eyes: non-icteric ENT: oropharynx moist, other (mallampati 3) Neck: supple, no lymphadenopathy, no JVD, other (large neck circumference) Effort: mildly labored Ascultation: Bilateral: clear, diminished breath sounds Percussion: Bilateral: not dull Cardiovascular: regular rate and rhythm Gastrointestinal: normoactive bowel sounds, soft, non-tender, non-distended, other (No HSM) Integumentary: normal Extremities: no cyanosis, no edema, pulses normal, no ischemia or petechiae Neurologic: normal mental status, non-focal exam, pupils equal and round, motor strength normal and Psychiatric: anxious CBC and BMP: 04/25/18 07:15 04/24/18 05:20 ABG, PT/INR, D-dimer: PT/INR, D-dimer PT 13.9 Sec. (12.2-14.9) 04/22/18 20:45 INR 1.01 (0.87-1.13) 04/22/18 20:45 Abnormal lab findings: Abnormal Labs 04/22/18 04/22/18 04/22/18 20:45 20:45 20:45 RBC 3.45 L Hgb Hct MCHC Plt Count 127 L [place] % (Auto) 9.4 H APTT 24.1 L Sodium 133 L Chloride 95.5 L BUN 45 H Creatinine Glucose 134 H POC Glucose Calcium Crossmatch 04/22/18 04/22/18 04/23/18 22:55 23:54 00:16 RBC Hgb 9.9 L Hct 29.6 L MCHC Plt Count [place] % (Auto) APTT Sodium Chloride BUN Creatinine Glucose POC Glucose 147 H Calcium Crossmatch See Detail 04/23/18 04/23/18 04/23/18 01:08 04:17 07:50 RBC Hgb 9.0 L Hct 26.9 L MCHC Plt Count [place] % (Auto) APTT Sodium Chloride BUN Creatinine Glucose POC Glucose 131 H 180 H Calcium Crossmatch 04/23/18 04/23/18 04/23/18 08:08 13:01 16:09 RBC Hgb 6.6 L Hct 20.3 L D MCHC Plt Count [place] % (Auto) APTT Sodium Chloride BUN Creatinine Glucose POC Glucose 123 H 168 H Calcium Crossmatch 04/24/18 04/24/18 04/24/18 00:39 05:20 05:20 RBC 3.13 L Hgb 9.9 L D Hct 28.6 L D MCHC 35 H Plt Count 64 L [place] % (Auto) APTT Sodium 136 L Chloride BUN Creatinine 0.6 L Glucose POC Glucose 107 H Cal[place] 8.1 L Crossmatch 04/24/18 13:00 RBC Hgb 9.7 L Hct 28.2 L MCHC Plt Count [place] % (Auto) APTT Sodium Chloride BUN Creatinine Glucose POC Glucose Calcium Crossmatch Chest x-ray: image reviewed (Right PICC line; clear otherwise) Allied health notes reviewed: nursing
[2018-04-24] MEDS: NACL 0.9% 1000 ML 1,000 ML IV SCH (16:21)
[2018-04-24] MEDS ORDERED: GOLYTELY PO ONE (18:00)
[2018-04-25] MEDS: HumaLOG SUB-Q SCH ×6 (00:05→23:03)
[2018-04-25] MEDS: NACL 0.9% 1000 ML 1,000 ML IV SCH ×2 (06:45→21:12)
[2018-04-25 07:25] LABS: Basophils % (Auto) 0.5 % (0.0-1.8); Eosinophils # (Auto) 0.1 K/mm3 (0.0-0.4); Eosinophils % (Auto) 0.8 % (0.0-4.3); Hematocrit 27.9 % (30.3-42.9); Hemoglobin 9.6 gm/dl (10.1-14.3); Lymphocytes # (Auto) 1.7 K/mm3 (1.2-5.4); Lymphocytes % (Auto) 21.7 % (13.4-35.0); Mean Corpuscular HGB Conc 34 % (30-34); Mean Corpuscular Volume 91 fl (79-97); Monocytes # (Auto) 0.9 K/mm3 (0.0-0.8); Monocytes % (Auto) 11.4 % (0.0-7.3); Red Blood Count 3.06 M/mm3 (3.65-5.03); Red Cell Distribution Width 15.1 % (13.2-15.2)
[2018-04-25 07:31] LABS: Platelet Count 71 K/mm3 (140-440)
[2018-04-25] MEDS: PROTONIX 80 MG in NACL 0.9% 100 ML IV SCH ×2 (10:25→21:12)
--- NOTE | 2018-04-25 13:29 | Progress Note ---
Assessment and Plan Assessment and plan: Patient is a 63 y/o female with PMH of HTN, DM, and colon cancer (s/p resection in 2018) who presented to ED with c/o dark stools with associated lightheadedness, weakness, SOB, and syncope. This am was noted to remain hypotensive and a recurrent syncope with concern for possible seizure. Syncope GI bleed- No new bleeding noted Vasogeneic shock- Resolved Acute blood loss Anemia presumed seizure HTN DM plan Continue supportive care EGD normal, await Colonoscopy No evidence of seizure, S/P 2 units PRBC GI following, H/H is stable. Intensvisit following MRI with no evidence of infarct continue accu check and blood glucose monitoring. DVT/GI prophy Can transfer to [facility] after colonoscopy Plan discussed with patient History Interval history: Patient seen and examined this am in no acute distress. No new complaints. no abdominal pain. no further need for pressors. H/H stable Hospitalist Physical - Physical exam Narrative exam: General appearance: Present: no acute distress, well-nourished, obese - EENT Eyes: Present: PERRL ENT: hearing intact - Neck Neck: Present: supple, normal ROM - Respiratory Respiratory effort: normal Respiratory: bilateral: diminished - Cardiovascular Rhythm: regular Heart Sounds: Present: S1 & S2, systolic murmur - Extremities Extremities: no ischemia, pulses intact, pulses symmetrical, No edema, normal temperature, normal color, Full ROM Peripheral Pulses: within normal limits - Abdominal General gastrointestinal: soft, non-tender, non-distended, normal bowel sounds - Integumentary Integumentary: Present: clear, warm, dry - Psychiatric Psychiatric: appropriate mood/affect, intact judgment & insight, cooperative - Neurologic Neurologic: CNII-XII intact, moves all extremities - Allied Health Allied health notes reviewed: nursing, RT - Constitutional Vitals: Temp Pulse Resp BP Pulse Ox 98.1 F 82 22 130/74 93 04/25/18 12:00 04/25/18 13:10 04/25/18 13:10 04/25/18 13:10 04/25/18 13:10 General appearance: Present: no acute distress, well-nourished, obese Results - Labs CBC & Chem 7: 04/25/18 07:15 04/24/18 05:20 Labs: Laboratory Last Values WBC 7.9 K/mm3 (4.5-11.0) 04/25/18 07:15 RBC 3.06 M/mm3 (3.65-5.03) L 04/25/18 07:15 Hgb 9.6 gm/dl (10.1-14.3) L 04/25/18 07:15 Hct 27.9 % (30.3-42.9) L 04/25/18 07:15 MCV 91 fl (79-97) 04/25/18 07:15 MCH 31 pg (28-32) 04/25/18 07:15 MCHC 34 % (30-34) 04/25/18 07:15 RDW 15.1 % (13.2-15.2) 04/25/18 07:15 Plt Count 71 K/mm3 (140-440) L 04/25/18 07:15 Lymph % (Auto) 21.7 % (13.4-35.0) 04/25/18 07:15 [place] % (Auto) 11.4 % (0.0-7.3) H 04/25/18 07:15 Eos % (Auto) 0.8 % (0.0-4.3) 04/25/18 07:15 Baso % (Auto) 0.5 % (0.0-1.8) 04/25/18 07:15 Lymph # 1.7 K/mm3 (1.2-5.4) 04/25/18 07:15 [place] # 0.9 K/mm3 (0.0-0.8) H 04/25/18 07:15 Eos # 0.1 K/mm3 (0.0-0.4) 04/25/18 07:15 Baso # 0.0 K/mm3 (0.0-0.1) 04/25/18 07:15 Seg Neutrophils % 65.6 % (40.0-70.0) 04/25/18 07:15 Seg Neutrophils # 5.2 K/mm3 (1.8-7.7) 04/25/18 07:15 PT 13.9 Sec. (12.2-14.9) 04/22/18 20:45 INR 1.01 (0.87-1.13) 04/22/18 20:45 APTT 24.1 Sec. (24.2-36.6) L 04/22/18 20:45 Sodium 136 mmol/L (137-145) L 04/24/18 05:20 Potassium 3.6 mmol/L (3.6-5.0) 04/24/18 05:20 Chloride 102.9 mmol/L (98-107) 04/24/18 05:20 Carbon Dioxide 23 mmol/L (22-30) 04/24/18 05:20 Anion Gap 14 mmol/L 04/24/18 05:20 BUN 10 mg/dL (7-17) 04/24/18 05:20 Creatinine 0.6 mg/dL (0.7-1.2) L 04/24/18 05:20 Estimated GFR > 60 ml/min 04/24/18 05:20 BUN/Creatinine Ratio 17 % 04/24/18 05:20 Glucose 98 mg/dL (65-100) 04/24/18 05:20 POC Glucose 96 (70-105) 04/25/18 11:42 Calcium 8.1 mg/dL (8.4-10.2) L 04/24/18 05:20 Magnesium 2.00 mg/dL (1.7-2.3) 04/22/18 22:46 Total Bilirubin 0.70 mg/dL (0.1-1.2) 04/22/18 20:45 AST 15 units/L (5-40) 04/22/18 20:45 ALT 13 units/L (7-56) 04/22/18 20:45 Alkaline Phosphatase 35 units/L (35-129) 04/22/18 20:45 Total Creatine Kinase 71 units/L (30-135) 04/22/18 22:46 CK-MB (CK-2) 1.5 ng/mL (0.0-4.0) 04/22/18 20:45 CK-MB (CK-2) Rel Index 2.0 (0-4) 04/22/18 20:45 Troponin T < 0.010 ng/mL (0.00-0.029) 04/22/18 20:45 Total Protein 6.8 g/dL (6.3-8.2) 04/22/18 20:45 Albumin 4.1 g/dL (3.9-5) 04/22/18 20:45 Albumin/Globulin Ratio 1.5 % 04/22/18 20:45 TSH 0.720 mlU/mL (0.270-4.200) 04/23/18 08:01 Urine Opiates Screen Presumptive negative 04/23/18 07:38 Urine Methadone Screen Presumptive negative 04/23/18 07:38 Ur Barbiturates Screen Presumptive negative 04/23/18 07:38 Ur Phencyclidine Scrn Presumptive negative 04/23/18 07:38 Ur Amphetamines Screen Presumptive negative 04/23/18 07:38 U Benzodiazepines Scrn Presumptive negative 04/23/18 07:38 Urine Cocaine Screen Presumptive negative 04/23/18 07:38 U Marijuana (THC) Screen Presumptive negative 04/23/18 07:38 Drugs of Abuse Note Disclamer 04/23/18 07:38 Blood Type B POSITIVE 04/22/18 22:55 Antibody Screen Negative 04/22/18 22:55 Crossmatch See Detail 04/22/18 22:55
--- NOTE | 2018-04-25 14:22 | Progress Note ---
Assessment and Plan Acute gastrointestinal bleed. Syncope. Symptomatic anemia. Obesity. Diabetes. History of colon cancer. History of hypertension - S/P 2 units PRBC - transition off PPI drip - GI following, H/H is stable (tentatively for colonoscopy in am) - continue bowel prep with go lytely - continue serial H&H - remains NPO (advance diet per GI team) - supplemental oxygen as neded to keep O2 sats > 90% - No evidence of seizure - MRI with no evidence of infarct - PT/OT/ROM ecercises as tolerated - VTE prophylaxis with SCD's - gentle hydration while NPO - continue glycemic control with accuchecks q6h and SSI for target BG 140-180 mg/dl acutely - aspiration precautions - mobility protocol for pressure ulcer prophylaxis - continue supportive care - continue other care per attending / other consultants - continue to observe in ICU for gross bleeding and hemodynamicaly ... re-evaluate in am & prn The high probability of a clinically significant, sudden or life-threatening deterioration of the [G.I. & hematologic] system(s) required my full and direct attention, intervention and personal management. The aggregate critical care time was [36] minutes without overlap. Time includes spent on; [x] Data Review and interpretation [x] Patient assessment and monitoring of vital signs [x] Documentation [x] Medication orders and management Subjective Date of service: 04/25/18 Principal diagnosis: Acute G.I. bleed; Syncope; Symptomatic anemia; Obesity; Diabetes. Interval history: Patient is seen today for: Acute gastrointestinal bleed; Syncope; Symptomatic anemia; Obesity; Diabetes. Seen and examined at bedside; 24hour events reviewed; nursing and respiratory care staff consulted; no adverse overnight events reported to me; resting peacefully in bed; tentatively for colonoscopy in am; denies acute chest pains or palpitations; bowel prep ongoing and no hematochezia or melena; H&H holding Objective Vital Signs - 12hr 04/25/18 04/25/18 04/25/18 01:30 01:40 01:50 Temperature Pulse Rate 61 66 62 Pulse Rate [ From Monitor] Respiratory 14 19 16 Rate Blood Pressure 136/69 136/69 136/69 O2 Sat by Pulse 94 100 99 Oximetry 04/25/18 04/25/18 04/25/18 03:00 03:10 03:20 Temperature Pulse Rate 64 76 81 Pulse Rate [ From Monitor] Respiratory 17 18 18 Rate Blood Pressure 119/75 119/75 119/75 O2 Sat by Pulse 100 99 99 Oximetry 04/25/18 04/25/18 04/25/18 03:30 03:40 03:46 Temperature Pulse Rate 85 77 64 Pulse Rate [ From Monitor] Respiratory 22 20 13 Rate Blood Pressure 126/57 126/57 145/65 O2 Sat by Pulse 98 97 98 Oximetry 04/25/18 04/25/18 04/25/18 04:00 04:10 04:20 Temperature 98.1 F Pulse Rate 65 64 60 Pulse Rate [ 65 From Monitor] Respiratory 17 17 17 Rate Blood Pressure 125/71 125/71 125/71 O2 Sat by Pulse 98 100 98 Oximetry 04/25/18 04/25/18 04/25/18 04:30 04:40 04:50 Temperature Pulse Rate 85 87 73 Pulse Rate [ From Monitor] Respiratory 17 17 20 Rate Blood Pressure 134/80 134/80 134/80 O2 Sat by Pulse 95 100 99 Oximetry 04/25/18 04/25/18 04/25/18 05:00 05:10 05:20 Temperature Pulse Rate 70 61 61 Pulse Rate [ From Monitor] Respiratory 21 15 22 Rate Blood Pressure 142/79 142/79 142/79 O2 Sat by Pulse 100 100 99 Oximetry 04/25/18 04/25/18 04/25/18 05:30 05:40 05:50 Temperature Pulse Rate 65 60 66 Pulse Rate [ From Monitor] Respiratory 17 18 15 Rate Blood Pressure 132/81 142/79 142/79 O2 Sat by Pulse 100 97 100 Oximetry 04/25/18 04/25/18 04/25/18 06:00 06:10 06:20 Temperature Pulse Rate 60 62 80 Pulse Rate [ From Monitor] Respiratory 16 13 14 Rate Blood Pressure 136/71 136/71 136/71 O2 Sat by Pulse 98 99 93 Oximetry 04/25/18 04/25/18 04/25/18 06:30 06:40 06:50 Temperature Pulse Rate 86 97 H 73 Pulse Rate [ From Monitor] Respiratory 16 21 21 Rate Blood Pressure 125/74 125/74 125/74 O2 Sat by Pulse 94 99 98 Oximetry 04/25/18 04/25/18 04/25/18 07:00 07:10 07:20 Temperature Pulse Rate 75 66 72 Pulse Rate [ From Monitor] Respiratory 20 18 20 Rate Blood Pressure 125/74 134/78 134/78 O2 Sat by Pulse 93 96 96 Oximetry 04/25/18 04/25/18 04/25/18 07:30 07:40 07:50 Temperature Pulse Rate 66 74 68 Pulse Rate [ From Monitor] Respiratory 19 20 19 Rate Blood Pressure 136/80 136/80 136/80 O2 Sat by Pulse 97 99 99 Oximetry 04/25/18 04/25/18 04/25/18 08:00 08:10 08:20 Temperature 98.7 F Pulse Rate 80 72 70 Pulse Rate [ 70 From Monitor] Respiratory 15 17 18 Rate Blood Pressure 140/65 140/65 140/65 O2 Sat by Pulse 90 97 99 Oximetry 04/25/18 04/25/18 04/25/18 08:30 08:40 08:50 Temperature Pulse Rate 78 57 L 64 Pulse Rate [ From Monitor] Respiratory 18 14 16 Rate Blood Pressure 129/84 129/84 129/84 O2 Sat by Pulse 95 95 97 Oximetry 04/25/18 04/25/18 04/25/18 09:00 09:10 09:20 Temperature Pulse Rate 67 76 61 Pulse Rate [ From Monitor] Respiratory 15 17 17 Rate Blood Pressure 134/77 134/77 134/77 O2 Sat by Pulse 99 99 99 Oximetry 04/25/18 04/25/18 04/25/18 09:30 09:40 09:50 Temperature Pulse Rate 62 96 H 77 Pulse Rate [ From Monitor] Respiratory 14 21 22 Rate Blood Pressure 143/73 134/77 134/77 O2 Sat by Pulse 98 95 98 Oximetry 04/25/18 04/25/18 04/25/18 10:00 10:10 10:20 Temperature Pulse Rate 76 78 74 Pulse Rate [ From Monitor] Respiratory 18 16 18 Rate Blood Pressure 140/81 140/81 140/81 O2 Sat by Pulse 96 98 96 Oximetry 04/25/18 04/25/18 04/25/18 10:30 10:40 10:50 Temperature Pulse Rate 81 72 57 L Pulse Rate [ From Monitor] Respiratory 17 15 13 Rate Blood Pressure 139/79 139/79 139/79 O2 Sat by Pulse 97 97 99 Oximetry 04/25/18 04/25/18 04/25/18 11:00 11:10 11:20 Temperature Pulse Rate 76 73 80 Pulse Rate [ From Monitor] Respiratory 18 15 20 Rate Blood Pressure 145/76 145/76 145/76 O2 Sat by Pulse 99 98 99 Oximetry 04/25/18 04/25/18 04/25/18 11:30 11:40 11:50 Temperature Pulse Rate 85 74 93 H Pulse Rate [ From Monitor] Respiratory 17 16 17 Rate Blood Pressure 131/85 131/85 131/85 O2 Sat by Pulse 96 96 98 Oximetry 04/25/18 04/25/18 04/25/18 12:00 12:10 12:20 Temperature 98.1 F Pulse Rate 112 H 94 H 84 Pulse Rate [ 93 H From Monitor] Respiratory 19 14 13 Rate Blood Pressure 131/85 170/139 170/139 O2 Sat by Pulse 100 99 98 Oximetry 04/25/18 04/25/18 04/25/18 12:30 12:40 12:50 Temperature Pulse Rate 79 84 76 Pulse Rate [ From Monitor] Respiratory 18 15 20 Rate Blood Pressure 132/75 132/75 132/75 O2 Sat by Pulse 97 98 99 Oximetry 04/25/18 04/25/18 13:00 13:10 Temperature Pulse Rate 81 82 Pulse Rate [ From Monitor] Respiratory 22 22 Rate Blood Pressure 130/74 130/74 O2 Sat by Pulse 98 93 Oximetry Constitutional: no acute distress, alert, other (elderly looking AAF, normoce phalic and atraumatic with mildly increased respiratory effort at rest) Eyes: non-icteric ENT: oropharynx moist, other (mallampati 3) Neck: supple, no lymphadenopathy, no JVD, other (large neck circumference) Effort: mildly labored Ascultation: Bilateral: clear, diminished breath sounds Percussion: Bilateral: not dull Cardiovascular: regular rate and rhythm Gastrointestinal: normoactive bowel sounds, soft, non-tender, non-distended, other (No HSM) Integumentary: normal Extremities: no cyanosis, no edema, pulses normal, no ischemia or petechiae Neurologic: normal mental status, non-focal exam, pupils equal and round, motor strength normal and Psychiatric: mood appropriate, affect normal CBC and BMP: 04/26/18 05:00 04/24/18 05:20 ABG, PT/INR, D-dimer: PT/INR, D-dimer PT 13.9 Sec. (12.2-14.9) 04/22/18 20:45 INR 1.01 (0.87-1.13) 04/22/18 20:45 Abnormal lab findings: Abnormal Labs 04/22/18 04/22/18 04/22/18 20:45 20:45 20:45 RBC 3.45 L Hgb Hct MCHC Plt Count 127 L [place] % (Auto) 9.4 H [place] # APTT 24.1 L Sodium 133 L Chloride 95.5 L BUN 45 H Creatinine Glucose 134 H POC Glucose Calcium Crossmatch 04/22/18 04/22/18 04/23/18 22:55 23:54 00:16 RBC Hgb 9.9 L Hct 29.6 L MCHC Plt Count [place] % (Auto) [place] # APTT Sodium Chloride BUN Creatinine Glucose POC Glucose 147 H [place] Crossmatch See Detail 04/23/18 04/23/18 04/23/18 01:08 04:17 07:50 RBC Hgb 9.0 L Hct 26.9 L MCHC Plt Count [place] % (Auto) [place] # APTT Sodium Chloride BUN Creatinine Glucose POC Glucose 131 H 180 H Calcium Crossmatch 04/23/18 04/23/18 04/23/18 08:08 13:01 16:09 RBC Hgb 6.6 L Hct 20.3 L D MCHC Plt Count [place] % (Auto) [place] # APTT Sodium Chloride BUN Creatinine Glucose POC Glucose 123 H 168 H [place] Crossmatch 04/24/18 04/24/18 04/24/18 00:39 05:20 05:20 RBC 3.13 L Hgb 9.9 L D Hct 28.6 L D MCHC 35 H Plt Count 64 L [place] % (Auto) [place] # APTT Sodium 136 L Chloride BUN Creatinine 0.6 L Glucose POC Glucose 107 H [place] 8.1 L Crossmatch 04/24/18 04/24/18 04/24/18 13:00 20:04 23:19 RBC Hgb 9.7 L Hct 28.2 L MCHC Plt Count [place] % (Auto) [place] # APTT Sodium Chloride BUN Creatinine Glucose POC Glucose 106 H 128 H [place] Crossmatch 04/25/18 04/25/18 04:33 07:15 RBC 3.06 L Hgb 9.6 L Hct 27.9 L MCHC Plt Count 71 L [place] % (Auto) 11.4 H [place] # 0.9 H APTT Sodium Chloride BUN Creatinine Glucose POC Glucose 106 H [place] Crossmatch Chest x-ray: image reviewed Allied health notes reviewed: nursing
--- NOTE | 2018-04-25 15:40 | Gastroenterology Progress Note ---
Assessment and Plan GI: no signs bleeding overnight - h/h stable - colonoscopy in am - will follow Subjective Date of service: 04/25/18 Principal diagnosis: Acute G.I. bleed; Syncope; Symptomatic anemia; Obesity; Diabetes. Interval history: - no signs bleeding overnight Objective - Constitutional Vitals: Temp Pulse Resp BP Pulse Ox 98.1 F 74 13 117/79 99 04/25/18 12:00 04/25/18 15:00 04/25/18 15:00 04/25/18 15:00 04/25/18 15:00 General appearance: no acute distress - EENT Eyes: PERRL - Respiratory Respiratory: bilateral: CTA - Cardiovascular Rhythm: regular Heart Sounds: Present: S1 & S2 - Gastrointestinal General gastrointestinal: Present: soft, non-tender, non-distended - Labs CBC & Chem 7: 04/25/18 07:15 04/24/18 05:20 Labs: Laboratory Results - last 24 hr 04/24/18 04/24/18 04/24/18 16:16 20:04 23:19 WBC RBC Hgb Hct MCV MCH MCHC RDW Plt Count Lymph % (Auto) [place] % (Auto) Eos % (Auto) Baso % (Auto) Lymph # [place] # Eos # Baso # Seg Neutrophils % Seg Neutrophils # POC Glucose 97 106 H 128 H 04/25/18 04/25/18 04/25/18 04:33 07:15 08:14 WBC 7.9 RBC 3.06 L Hgb 9.6 L Hct 27.9 L MCV 91 MCH 31 MCHC 34 RDW 15.1 Plt Count 71 L Lymph % (Auto) 21.7 [place] % (Auto) 11.4 H Eos % (Auto) 0.8 Baso % (Auto) 0.5 Lymph # 1.7 [place] # 0.9 H Eos # 0.1 Baso # 0.0 Seg Neutrophils % 65.6 Seg Neutrophils # 5.2 POC Glucose 106 H 101 04/25/18 11:42 WBC RBC Hgb Hct MCV MCH MCHC RDW Plt Count Lymph % (Auto) [place] % (Auto) Eos % (Auto) Baso % (Auto) Lymph # [place] # Eos # Baso # Seg Neutrophils % Seg Neutrophils # POC Glucose 96
[2018-04-25] MEDS ORDERED: CITRATE OF MAGNESIA PO ONE (22:00)
[2018-04-26 05:25] LABS: Hematocrit 27.3 % (30.3-42.9); Hemoglobin 9.5 gm/dl (10.1-14.3)
[2018-04-26] MEDS: HumaLOG SUB-Q SCH ×3 (06:55→09:33)
[2018-04-26] MEDS: PROTONIX 80 MG in NACL 0.9% 100 ML IV SCH (08:06)
--- NOTE | 2018-04-26 10:15 | Progress Note ---
Assessment and Plan Acute gastrointestinal bleed. Syncope. Symptomatic anemia. Obesity. Diabetes. History of colon cancer. History of hypertension - S/P 2 units PRBC - transitioned off PPI drip - GI following, H/H is stable (tentatively for colonoscopy today) - continue serial H&H - NPO for colonoscopy then advance diet per GI team - supplemental oxygen as neded to keep O2 sats > 90% - No evidence of seizure - MRI with no evidence of infarct - PT/OT/ROM ecercises as tolerated - VTE prophylaxis with SCD's - gentle hydration while NPO - continue glycemic control with accuchecks q6h and SSI for target BG 140-180 m g/dl acutely - aspiration precautions - mobility protocol for pressure ulcer prophylaxis - continue supportive care - continue other care per attending / other consultants ....ok to transfer to medical floor ... re-evaluate in am & prn Subjective Date of service: 04/26/18 Principal diagnosis: Acute G.I. bleed; Syncope; Symptomatic anemia; Obesity; Diabetes. Interval history: Patient is seen today for: Acute gastrointestinal bleed; Syncope; Symptomatic anemia; Obesity; Diabetes. Seen and examined at bedside; 24hour events reviewed; nursing and respiratory care staff consulted; no adverse overnight events reported to me; resting peacefully in bed; for colonoscopy today; no gross bleeding; no N/V/F/C Objective Vital Signs - 12hr 04/25/18 04/25/18 04/25/18 22:20 22:30 22:40 Temperature Pulse Rate 64 79 78 Pulse Rate [ From Monitor] Respiratory 19 16 18 Rate Respiratory Rate [Abdomen] Blood Pressure 160/88 162/102 150/89 O2 Sat by Pulse 98 98 98 Oximetry 04/25/18 04/25/18 04/25/18 22:50 23:00 23:10 Temperature Pulse Rate 62 61 62 Pulse Rate [ From Monitor] Respiratory 17 18 15 Rate Respiratory Rate [Abdomen] Blood Pressure 150/89 147/78 147/78 O2 Sat by Pulse 99 97 99 Oximetry 04/25/18 04/25/18 04/25/18 23:20 23:30 23:40 Temperature Pulse Rate 58 L 79 80 Pulse Rate [ From Monitor] Respiratory 21 17 16 Rate Respiratory Rate [Abdomen] Blood Pressure 147/78 132/84 132/84 O2 Sat by Pulse 98 96 98 Oximetry 04/25/18 04/26/18 04/26/18 23:50 00:00 00:10 Temperature 98.5 F Pulse Rate 74 69 67 Pulse Rate [ 64 From Monitor] Respiratory 14 16 17 Rate Respiratory Rate [Abdomen] Blood Pressure 132/84 131/89 131/89 O2 Sat by Pulse 99 98 97 Oximetry 04/26/18 04/26/18 04/26/18 00:20 00:30 00:40 Temperature Pulse Rate 65 66 57 L Pulse Rate [ From Monitor] Respiratory 17 17 16 Rate Respiratory Rate [Abdomen] Blood Pressure 131/89 143/88 131/89 O2 Sat by Pulse 98 96 97 Oximetry 04/26/18 04/26/18 04/26/18 00:50 01:00 01:10 Temperature Pulse Rate 59 L 74 55 L Pulse Rate [ From Monitor] Respiratory 18 17 13 Rate Respiratory Rate [Abdomen] Blood Pressure 131/89 153/87 143/88 O2 Sat by Pulse 96 97 97 Oximetry 04/26/18 04/26/18 04/26/18 01:20 01:30 01:40 Temperature Pulse Rate 65 62 69 Pulse Rate [ From Monitor] Respiratory 16 20 17 Rate Respiratory Rate [Abdomen] Blood Pressure 143/88 142/89 142/89 O2 Sat by Pulse 97 97 99 Oximetry 04/26/18 04/26/18 04/26/18 01:50 02:00 02:10 Temperature Pulse Rate 70 63 55 L Pulse Rate [ From Monitor] Respiratory 14 16 16 Rate Respiratory Rate [Abdomen] Blood Pressure 142/89 131/79 131/79 O2 Sat by Pulse 98 99 94 Oximetry 04/26/18 04/26/18 04/26/18 02:20 02:30 02:40 Temperature Pulse Rate 78 70 73 Pulse Rate [ From Monitor] Respiratory 19 18 19 Rate Respiratory Rate [Abdomen] Blood Pressure 131/79 131/79 131/79 O2 Sat by Pulse 99 99 99 Oximetry 04/26/18 04/26/18 04/26/18 02:50 03:00 03:10 Temperature Pulse Rate 63 75 70 Pulse Rate [ From Monitor] Respiratory 17 16 20 Rate Respiratory Rate [Abdomen] Blood Pressure 131/79 131/79 156/90 O2 Sat by Pulse 97 98 98 Oximetry 04/26/18 04/26/18 04/26/18 03:20 03:30 03:40 Temperature Pulse Rate 67 77 60 Pulse Rate [ From Monitor] Respiratory 18 17 14 Rate Respiratory Rate [Abdomen] Blood Pressure 156/90 148/89 148/89 O2 Sat by Pulse 98 97 99 Oximetry 04/26/18 04/26/18 04/26/18 03:50 04:00 04:10 Temperature 98.6 F Pulse Rate 63 66 67 Pulse Rate [ 61 From Monitor] Respiratory 19 16 16 Rate Respiratory Rate [Abdomen] Blood Pressure 148/89 148/89 161/65 O2 Sat by Pulse 99 98 98 Oximetry 04/26/18 04/26/18 04/26/18 04:20 04:30 04:40 Temperature Pulse Rate 57 L 63 70 Pulse Rate [ From Monitor] Respiratory 17 14 14 Rate Respiratory Rate [Abdomen] Blood Pressure 161/65 168/75 168/75 O2 Sat by Pulse 98 98 98 Oximetry 04/26/18 04/26/18 04/26/18 04:50 05:00 05:10 Temperature Pulse Rate 68 84 76 Pulse Rate [ From Monitor] Respiratory 19 18 13 Rate Respiratory Rate [Abdomen] Blood Pressure 168/75 171/118 171/118 O2 Sat by Pulse 96 98 99 Oximetry 04/26/18 04/26/18 04/26/18 05:20 05:30 05:40 Temperature Pulse Rate 75 89 94 H Pulse Rate [ From Monitor] Respiratory 10 L 27 H 18 Rate Respiratory Rate [Abdomen] Blood Pressure 171/118 171/118 171/118 O2 Sat by Pulse 98 100 98 Oximetry 04/26/18 04/26/18 04/26/18 05:50 06:00 06:10 Temperature Pulse Rate 89 69 69 Pulse Rate [ From Monitor] Respiratory 24 22 22 Rate Respiratory Rate [Abdomen] Blood Pressure 171/118 161/78 161/78 O2 Sat by Pulse 97 100 99 Oximetry 04/26/18 04/26/18 04/26/18 06:20 06:30 06:40 Temperature Pulse Rate 80 71 59 L Pulse Rate [ From Monitor] Respiratory 14 22 15 Rate Respiratory Rate [Abdomen] Blood Pressure 161/78 157/76 157/76 O2 Sat by Pulse 97 98 100 Oximetry 04/26/18 04/26/18 04/26/18 07:01 07:31 08:00 Temperature 98.9 F Pulse Rate 82 80 77 Pulse Rate [ 70 From Monitor] Respiratory 16 19 16 Rate Respiratory Rate [Abdomen] Blood Pressure 175/111 150/89 153/96 O2 Sat by Pulse 95 97 99 Oximetry 04/26/18 04/26/18 04/26/18 08:30 09:01 09:15 Temperature Pulse Rate 80 77 Pulse Rate [ From Monitor] Respiratory 17 16 Rate Respiratory Rate [Abdomen] Blood Pressure 157/97 140/89 O2 Sat by Pulse 99 97 97 Oximetry 04/26/18 04/26/18 09:31 10:00 Temperature Pulse Rate 75 80 Pulse Rate [ From Monitor] Respiratory 12 19 Rate Respiratory 15 Rate [Abdomen] Blood Pressure 140/89 138/82 O2 Sat by Pulse 97 97 Oximetry Constitutional: no acute distress, alert, other (elderly looking AAF, normocephalic and atraumatic with mildly increased respiratory effort at rest) Eyes: non-icteric ENT: oropharynx moist, other (mallampati 3) Neck: supple, no lymphadenopathy, no JVD, other (large neck circumference) Effort: mildly labored Ascultation: Bilateral: clear, diminished breath sounds Percussion: Bilateral: not dull Cardiovascular: regular rate and rhythm Gastrointestinal: normoactive bowel sounds, soft, non-tender, non-distended, other (No HSM) Integumentary: normal Extremities: no cyanosis, no edema, pulses normal, no ischemia or petechiae Neurologic: normal mental status, non-focal exam, pupils equal and round, motor strength normal and Psychiatric: mood appropriate, affect normal CBC and BMP: 04/26/18 05:00 04/24/18 05:20 ABG, PT/INR, D-dimer: PT/INR, D-dimer PT 13.9 Sec. (12.2-14.9) 04/22/18 20:45 INR 1.01 (0.87-1.13) 04/22/18 20:45 Abnormal lab findings: Abnormal Labs 04/22/18 04/22/18 04/22/18 20:45 20:45 20:45 RBC 3.45 L Hgb Hct MCHC Plt Count 127 L [place] % (Auto) 9.4 H [place] # APTT 24.1 L Sodium 133 L Chloride 95.5 L BUN 45 H Creatinine Glucose 134 H POC Glucose Calcium Crossmatch 04/22/18 04/22/18 04/23/18 22:55 23:54 00:16 RBC Hgb 9.9 L Hct 29.6 L MCHC Plt Count [place] % (Auto) [place] # APTT Sodium Chloride BUN Creatinine Glucose POC Glucose 147 H Calcium Crossmatch See Detail 04/23/18 04/23/18 04/23/18 01:08 04:17 07:50 RBC Hgb 9.0 L Hct 26.9 L MCHC Plt Count [place] % (Auto) [place] # APTT Sodium Chloride BUN Creatinine Glucose POC Glucose 131 H 180 H Calcium Crossmatch 04/23/18 04/23/18 04/23/18 08:08 13:01 16:09 RBC Hgb 6.6 L Hct 20.3 L D MCHC Plt Count [place] % (Auto) [place] # APTT Sodium Chloride BUN Creatinine Glucose POC Glucose 123 H 168 H Calcium Crossmatch 04/24/18 04/24/18 04/24/18 00:39 05:20 05:20 RBC 3.13 L Hgb 9.9 L D Hct 28.6 L D MCHC 35 H Plt Count 64 L [place] % (Auto) [place] # APTT Sodium 136 L Chloride BUN Creatinine 0.6 L Glucose POC Glucose 107 H Calcium 8.1 L Crossmatch 04/24/18 04/24/18 04/24/18 13:00 20:04 23:19 RBC Hgb 9.7 L Hct 28.2 L MCHC Plt Count [place] % (Auto) [place] # APTT Sodium Chloride BUN Creatinine Glucose POC Glucose 106 H 128 H Calcium Crossmatch 04/25/18 04/25/18 04/25/18 04:33 07:15 19:28 RBC 3.06 L Hgb 9.6 L Hct 27.9 L MCHC Plt Count 71 L [place] % (Auto) 11.4 H [place] # 0.9 H APTT Sodium Chloride BUN Creatinine Glucose POC Glucose 106 H 110 H Calcium Crossmatch 04/26/18 05:00 RBC Hgb 9.5 L Hct 27.3 L MCHC Plt Count [place] % (Auto) [place] # APTT Sodium Chloride BUN Creatinine Glucose POC Glucose Calcium Crossmatch Allied health notes reviewed: nursing
[2018-04-26] MEDS ORDERED: NACL 0.9% 1000 ML 1,000 ML IV SCH (15:30)
[2018-04-26] MEDS ORDERED: DIPRIVAN 10 MG/ML IV ONE (15:37)
[2018-04-26] MEDS ORDERED: WATER FOR IRRIG STERILE IR ONE (15:48)
--- NOTE | 2018-04-26 16:06 | Post Operative Note ---
Pre-op diagnosis: gi bleed Post-op diagnosis: same Findings: colonoscopy: internal hemorrhoids - negative other Procedure: Colonoscopy Anesthesia: MAC Surgeon: EMANI LISA Estimated blood loss: none Pathology: list Specimen disposition: to lab Condition: stable Disposition: floor
[2018-04-26 16:18] VITALS: BP 140/65
--- NOTE | 2018-04-26 16:18 | Discharge Summary ---
Providers - Providers Date of Admission: 04/22/18 22:43 Attending physician: JACK MEJIA MD 04/22/18 22:12 Consult to Physician [CONS] Urgent Comment: Dr. Goodman spoke with Dr. Herron @ [phone] Consulting Provider: JUANITO HERRON Physician Instructions: Reason For Exam: ugib 04/23/18 07:47 Consult to PICC Line RN [CONS] Urgent Reason For Exam: PERSISTENT HYPOTENSION Type Line:: PICC 04/23/18 07:48 Consult to Physician [CONS] Routine Comment: Consulting Provider: GRETCHEN MEDINA Physician Instructions: Reason For Exam: SEIZURE 04/23/18 07:51 Consult to Physician [CONS] Routine Comment: Consulting Provider: GREGORY PRATER Physician Instructions: Reason For Exam: HYPOVOLUEMIC SHOCK [facility] Reason for admission: GI Bleed Condition: Stable Hospital course: Patient is a 63 y/o female with PMH of HTN, DM, and colon cancer (s/p resection in 2018) who presented to ED with c/o dark stools with associated lightheadedness, weakness, SOB, and syncope. This am was noted to remain hypotensive and a recurrent syncope with concern for possible seizure. On admission the patient was noted to be in shock like state and concerning for seizure The later was noted to be absent and the patient was eventualed transfered to the ICU and given 2 units PRBC and remained stable. She preceded to have Endoscopy and colonoscopy that was noted to have internal Hemorrohids. She has been placed on PPI bid and to follow with GI outpatient. Syncope GI bleed- No new bleeding noted Vasogeneic shock- Resolved Acute blood loss Anemia Internal Hemorrohid presumed seizure HTN DM Disposition: - TO HOME OR SELFCARE Time spent for discharge: 35 mins Core Measure Documentation - Palliative Care Palliative Care/ Comfort Measures: Not Applicable - Core Measures Any of the following diagnoses?: none Exam - Physical Exam Narrative exam: General appearance: Present: no acute distress, well-nourished, obese - EENT Eyes: Present: PERRL ENT: hearing intact - Neck Neck: Present: supple, normal ROM - Respiratory Respiratory effort: normal Respiratory: bilateral: diminished - Cardiovascular Rhythm: regular Heart Sounds: Present: S1 & S2, systolic murmur - Extremities Extremities: no ischemia, pulses intact, pulses symmetrical, No edema, normal temperature, normal color, Full ROM Peripheral Pulses: within normal limits - Abdominal General gastrointestinal: soft, non-tender, non-distended, normal bowel sounds - Integumentary Integumentary: Present: clear, warm, dry - Psychiatric Psychiatric: appropriate mood/affect, intact judgment & insight, cooperative - Neurologic Neurologic: CNII-XII intact, moves all extremities - Allied Health Allied health notes reviewed: nursing, RT - Constitutional Vitals: Temp Pulse Resp BP Pulse Ox 98.4 F 87 15 140/65 98 04/26/18 15:47 04/26/18 16:16 04/26/18 16:16 04/26/18 16:16 04/26/18 16:16 Plan Activity: advance as tolerated, fall precautions Diet: low fat, diabetic Special Instructions: record daily weights, record daily BP diary, record blood sugar diary Additional Instructions: hemoglobin and hematochrit check in 4 days Follow up with: JING MYLESWOLCOTT MD [place] [Primary Care Provider] - 3-5 Days EMANI LISA MD [Staff Physician] - 7 Days Prescriptions: Pantoprazole [Protonix] 40 mg PO BID #60 tablet
--- NOTE | 2018-04-26 18:50 | Operative Report ---
PROCEDURE: Colonoscopy. INDICATIONS: 1. Anemia. 2. GI bleed. MEDICATIONS: Propofol per ROUND UP RING HAND. COMPLICATIONS: None. DESCRIPTION OF PROCEDURE: The patient brought to procedure suite. The patient had the procedure discussed with her at length. All risks, complications, and benefits discussed after which the patient signed for the procedure performed. The patient was placed in left lateral decubitus position. Rectal exam performed prior to insertion of the scope. After adequate sedation medication as above, scope was inserted into the rectum and brought to level of cecum. Ileocecal valve and appendiceal orifice, cecal strap were adequately visualized. Colonoscope was then removed and the mucosa of colon completely and adequately visualized. Prep quality for this procedure was fair. The patient's vital signs remained stable throughout the procedure. FINDINGS: There were no mass lesions, polyps, or diverticula noted during this procedure. Retroflexion view performed in the rectum showed small internal hemorrhoids. The patient tolerated the procedure well. No complications during the procedure. IMPRESSION: 1. Internal hemorrhoids. 2. Otherwise, normal colonoscopy. RECOMMENDATIONS: 1. Continue current medications. 2. Follow H and H and transfuse as needed. 3. Okay to discharge from GI standpoint. We will follow up as an outpatient. Call if needed. JOB# [id number] CAB/NTS
== END 2018-04-26 18:07 | disposition home or self-care (01) | DRG 377 ==
LOC: ED 20:27 → IMCU 22:43 → CC1 04-23 08:53 → 3A 04-26 11:31
PROVIDERS: ADMIT Internal Medicine; ATTEND Internal Medicine
PROC: 0DJ08ZZ Inspection of Upper Intestinal Tract, Via Natural or Artificial Opening Endoscopic (ICD-10-PCS; principal; 2018-04-23)
PROC: 30233N1 Transfusion of Nonautologous Red Blood Cells into Peripheral Vein, Percutaneous Approach (ICD-10-PCS; 2018-04-23)
PROC: 02HV33Z Insertion of Infusion Device into Superior Vena Cava, Percutaneous Approach (ICD-10-PCS; 2018-04-23)
PROC: 0DJD8ZZ Inspection of Lower Intestinal Tract, Via Natural or Artificial Opening Endoscopic (ICD-10-PCS; 2018-04-26)
DX: K92.2 Gastrointestinal hemorrhage, unspecified (principal); R57.8 Other shock; D62 Acute posthemorrhagic anemia; I10 Essential (primary) hypertension; E11.9 Type 2 diabetes mellitus without complications; R56.9 Unspecified convulsions; R55 Syncope and collapse; K64.8 Other hemorrhoids; F41.9 Anxiety disorder, unspecified; I95.9 Hypotension, unspecified; E66.9 Obesity, unspecified; K44.9 Diaphragmatic hernia without obstruction or gangrene; Z79.4 Long term (current) use of insulin; Z85.038 Personal history of other malignant neoplasm of large intestine; Z90.49 Acquired absence of other specified parts of digestive tract; Z79.899 Other long term (current) drug therapy; Z79.82 Long term (current) use of aspirin; Z68.30 Body mass index [BMI] 30.0-30.9, adult
CPT/HCPCS: 36415; 36430; 70450; 70553; 71045; 71250; 74174; 80048; 80053; 80307; 82271; 82550; 82553; 82962; 83735; 84443; 84484; 85014; 85018; 85025; 85027; 85610; 85730; 86850; 86900; 86901; 86920; 93005; 93010; 94760; 96374; 96375; G0378; A9577; C9113; J0461; J2250; J2405; J2704; J7030; J7040; P9016; Q9967

== ENCOUNTER 2020-08-02 16:38 | Emergency (ER) | payer BC ==
[2020-08-02 17:12] LABS: Bilirubin,Urine NEG (Negative); Blood,Urine NEG (Negative); Color,Urine Yellow (Yellow); Mucus,Urine FEW /HPF; Protein,Urine <15 mg/dL mg/dL (Negative); Urobilinogen,Urine < 2.0 mg/dL (<2.0)
[2020-08-02 17:16] LABS: Basophils # (Auto) 0.1 K/mm3 (0.0-0.1); Basophils % (Auto) 0.7 % (0.0-1.8); Eosinophils % (Auto) 0.2 % (0.0-4.3); Hemoglobin 13.5 gm/dl (10.1-14.3); Lymphocytes # (Auto) 1.4 K/mm3 (1.2-5.4); Lymphocytes % (Auto) 14.6 % (13.4-35.0); Mean Corpuscular HGB Conc 34 % (30-34); Mean Corpuscular Volume 93 fl (79-97); Monocytes # (Auto) 0.9 K/mm3 (0.0-0.8); Monocytes % (Auto) 9.7 % (0.0-7.3); Platelet Count 164 K/mm3 (140-440); Red Blood Count 4.31 M/mm3 (3.65-5.03); Red Cell Distribution Width 13.6 % (13.2-15.2)
[2020-08-02 17:29] LABS: BUN/Creatinine Ratio 9; Blood Urea Nitrogen 9 mg/dL (7-17); Calcium 9.8 mg/dL (8.4-10.2); Hemolysis Index 10
--- NOTE | 2020-08-02 17:44 | Emergency Department Report ---
ED General Adult HPI - General Chief complaint: High BP Stated complaint: HIGH BLOOD PRESSURE/VOMITTING PUI?: No Time Seen by Provider: 08/02/20 17:24 Source: patient Mode of arrival: Ambulatory Limitations: No Limitations - History of Present Illness Initial comments: Patient is a 65-year-old female that presents emergency room with complaints of near syncope, nausea, high blood pressure, dizziness. Patient states her sympto ms been going on for 2 weeks. Patient states that her symptoms are better with rest. Patient dates her symptoms are worse with exertion and movement. Patient states she has a history of high blood pressure and diabetes. Patient states she is compliant with her medications. Patient states she sees her primary care every 3 months. Patient denies chest pain or shortness of breath. Patient gudelia es fever and chills. Patient denies vomiting. Patient denies diarrhea. Patient denies recent travel. Patient denies recent international travel. Patient denies exposure to the novel coronavirus. Patient denies sick contacts. Patient denies fever and chills. Patient denies cough. Patient denies diarrhea. Patient denies coming in contact with anybody with symptoms of the novel coronavirus. -: Sudden, week(s) Consistency: constant Improves with: rest Worsens with: movement, other Associated Symptoms: headaches, malaise. denies: confusion, chest pain, cough, diaphoresis, fever/chills, loss of appetite, rash, shortness of breath, syncope, weakness - Related Data Home Medications Medication Instructions Recorded Confirmed Last Taken Spironolactone [Aldactone] 50 mg PO DAILY 02/09/18 08/02/20 04/22/18 metFORMIN [Glucophage] 500 mg PO BID 02/09/18 08/02/20 04/22/18 Clotrimazole-Betamethasone Lotion 1 1000units TP BID 08/02/20 08/02/20 Unknown Docusate Sodium [Stool Softener] 100 mg PO QDAY 08/02/20 08/02/20 Unknown Insulin Glargine,Hum.rec.anlog 25 unit SQ QHS 08/02/20 08/02/20 Unknown [Lantus Solostar] Valsartan-Hctz 320-25 mg Tab 1 tab PO QDAY 08/02/20 08/02/20 Unknown Previous Rx's Medication Instructions Recorded Last Taken Type Pantoprazole [Protonix] 40 mg PO BID #60 tablet 04/26/18 Unknown Rx Allergies Allergy/AdvReac Type Severity Reaction Status Date / Time No Known Allergies Allergy Verified 08/02/20 16:40 ED Review of Systems ROS: Stated complaint: HIGH BLOOD PRESSURE/VOMITTING Other details as noted in HPI Constitutional: denies: chills, fever Eyes: denies: eye pain, eye discharge, vision change ENT: denies: ear pain, throat pain Respiratory: denies: cough, shortness of breath, wheezing Cardiovascular: denies: chest pain, palpitations Endocrine: no symptoms reported Gastrointestinal: as per HPI, nausea. denies: abdominal pain, vomiting, diarrhea Genitourinary: denies: urgency, dysuria, discharge Musculoskeletal: denies: back pain, joint swelling, arthralgia Skin: denies: rash, lesions Neurological: as per HPI, headache. denies: weakness, paresthesias Psychiatric: denies: anxiety, depression Hematological/Lymphatic: denies: easy bleeding, easy bruising ED Past Medical Hx - Past Medical History Previous Medical History?: Yes Hx Hypertension: Yes Hx Congestive Heart Failure: No Hx Diabetes: Yes Hx Deep Vein Thrombosis: No Hx Asthma: No Hx COPD: No Hx HIV: No Additional medical history: colon cancer 2008 - Surgical History Past Surgical History?: No Hx Pacemaker: No Hx Internal Defibrillator: No - Family History Family history: no significant - Social History Smoking Status: Current Every Day Smoker Substance Use Type: None - Medications Home Medications: Home Medications Medication Instructions Recorded Confirmed Last Taken Type Spironolactone [Aldactone] 50 mg PO DAILY 02/09/18 08/02/20 04/22/18 History metFORMIN [Glucophage] 500 mg PO BID 02/09/18 08/02/20 04/22/18 History Pantoprazole [Protonix] 40 mg PO BID #60 tablet 04/26/18 08/02/20 Unknown Rx Clotrimazole-Betamethasone Lotion 1 1000units TP BID 08/02/20 08/02/20 Unknown History Docusate Sodium [Stool Softener] 100 mg PO QDAY 08/02/20 08/02/20 Unknown History Insulin Glargine,Hum.rec.anlog 25 unit SQ QHS 08/02/20 08/02/20 Unknown History [Lantus Solostar] Valsartan-Hctz 320-25 mg Tab 1 tab PO QDAY 08/02/20 08/02/20 Unknown History ED Physical Exam - General Limitations: No Limitations General appearance: alert, in no apparent distress - Head Head exam: Present: atraumatic, normocephalic - Eye Eye exam: Present: normal appearance - ENT ENT exam: Present: mucous membranes moist - Neck Neck exam: Present: normal inspection - Respiratory Respiratory exam: Present: normal lung sounds bilaterally. Absent: respiratory distress, wheezes, rales - Cardiovascular Cardiovascular Exam: Present: regular rate, normal rhythm, normal heart sounds. Absent: systolic murmur, diastolic murmur, rubs, gallop - GI/Abdominal GI/Abdominal exam: Present: soft, normal bowel sounds. Absent: distended, tenderness, guarding - Extremities Exam Extremities exam: Present: normal inspection - Back Exam Back exam: Present: normal inspection, full ROM - Neurological Exam Neurological exam: Present: alert, oriented X3, CN II-XII intact, normal gait - Psychiatric Psychiatric exam: Present: normal affect, normal mood - Skin Skin exam: Present: warm, dry, intact, normal color. Absent: rash ED Course Vital Signs 08/02/20 16:43 Temperature 98.2 F Pulse Rate 82 Respiratory 20 Rate Blood Pressure 153/85 O2 Sat by Pulse 97 Oximetry - Reevaluation(s) Reevaluation #1: Patient states she is feeling much better. Patient denies headache. Patient denies nausea. Patient states her dizziness is improved. Patient states she is ambulated without any symptoms. Patient has a normal gait. Patient is still receiving IV fluids.Patient to be discharged after IV fluids. I discussed all results and clinical findings with patient. I discussed plan of care with patient. Patient agrees with plan of care. Patient is stable for discharge. Patient will be discharged home. Patient given discharge instructions. Patient voiced understanding of discharge instructions. 08/02/20 19:43 ED Medical Decision Making - Lab Data Result diagrams: 08/02/20 16:59 08/02/20 16:59 - EKG Data -: EKG Interpreted by Me EKG shows normal: sinus rhythm, axis, intervals, QRS complexes, ST-T waves Rate: normal - Radiology Data Radiology results: report reviewed, image reviewed interpreted by me: Chest x-ray: No pneumonia, no pneumothorax, no foreign body, no osseous findings, no acute findings CHEST 1 VIEW INDICATION / CLINICAL INFORMATION: near syncope, dizziness. FINDINGS: SUPPORT DEVICES: None. HEART / MEDIASTINUM: No significant abnormality. LUNGS / PLEURA: No significant pulmonary or pleural abnormality. No pneumo thorax. ADDITIONAL FINDINGS: No significant additional findings. IMPRESSION: 1. No acute findings. CT head/brain wo con INDICATION / CLINICAL INFORMATION: 65 years Female; dixxiness. TECHNIQUE: Routine CT head without contrast. All CT scans at this location are performed using CT dose reduction for ALARA by means of automated exposure control. COMPARISON: The study is compared to previous CT of 04/23/2018. 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 The findings appear to involve the ganglia capsular regions and correlate with the previous exam of. The ventricular system appears unchanged in size and configuration. There is no clear CT evidence of acute intracranial hemorrhage or significant mass effect. ORBITS: No significant abnormality of visualized orbits. SINUSES / MASTOIDS: No significant abnormality in the visualized paranasal sinuses or mastoid air cells. CRANIOCERVICAL JUNCTION: No significant abnormality. ADDITIONAL FINDINGS: None. IMPRESSION: 1. 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 - Medical Decision Making Patient is a 65-year-old female who presents emergency room complaints of headache, dizziness, vomiting, elevated blood pressure and near syncope. Patient's blood pressure was essentially normal in the ER. Patient's blood pressure be managed as an outpatient. Patient had labs done which shows a mild hyponatremia and the rest of the labs were essentially unremarkable. Patient UA is negative for UTI. Patient had a CT of the head due to the complaints of dizziness and near syncope. Patient CT of the head was negative for acute finding. Patient had a chest x-ray due to her complaints and it was negative for acute finding. Personally reviewed the chest x-ray. Patient had an EKG which shows no acute findings and normal ST. I personally reviewed the EKG. Patient was given IV fluids in the ER and the patient responded well. Patient symptoms dramatically improved. Patient discharged from hospital essentially asymptomatic. Patient does not require inpatient or further emergency services. Patient is stable for discharge. Patient discharged home. - Differential Diagnosis Dizziness, near syncope, dehydration, electrolyte imbalance, headache, naus Critical care attestation.: If time is entered above; I have spent that time in minutes in the direct care of this critically ill patient, excluding procedure time. ED Disposition Clinical Impression: Dizziness, Near syncope, Nausea alone, Dehydration Headache Qualifiers: Headache type: unspecified Headache chronicity pattern: acute headache Intractability: not intractable Qualified Code(s): R51.9 - Headache, unspecified Disposition: DC- TO HOME OR SELFCARE Is pt being admited?: No Does the pt Need Aspirin: No Condition: Stable Instructions: Dehydration, Adult, [id number], Nausea, Adult, Near-Syncope, Dehydration, Adult Additional Instructions: Patient to follow-up with primary care in 2 to 3 days. Patient to follow-up with cardiology and neurology in 2 to 3 days. Patient to rest. Patient to increase water. Patient to avoid strenuous exercise or heavy lifting until cleared by cardiology and neurology. Patient to take Tylenol or ibuprofen as needed for pain. Patient to continue all medications. Patient to monitor blood pressure at home. Patient to keep a blood pressure log. Patient to take blood pressures to all follow-up appointments. Patient to get a heart healthy and a low-salt and diabetic diet. Patient to return to the ER if condition worsens, changes or new symptoms arise. Referrals: YISEL ARDON MD [Staff Physician] - 2-3 Days LADY GARCIA MD [Staff Physician] - 2-3 Days TESHA MILLER MD [Staff Physician] - 2-3 Days Time of Disposition: 20:06
[2020-08-02] MEDS ORDERED: SODIUM CHLORIDE 0.9% 1000 ML 1,000 ML IV ONE (17:45)
--- NOTE | 2020-08-02 18:15 | Cat Scan Report ---
CT head/brain wo con INDICATION / CLINICAL INFORMATION: 65 years Female; dixxiness. TECHNIQUE: Routine CT head without contrast. All CT scans at this location are performed using CT dos e reduction for ALARA by means of automated exposure control. COMPARISON: The study is compared to previous CT of 04/23/2018. FINDINGS: BRAIN / INTRACRANIAL CONTENTS: There is mild cerebral white matter disease most consistent with micro vascular angiopathy. The findings appear to involve the ganglia capsular regions and correlate with t he previous exam of. The ventricular system appears unchanged in size and configuration. There is no clear CT evidence of acute intracranial hemorrhage or significant mass effect. ORBITS: No significant abnormality of visualized orbits. SINUSES / MASTOIDS: No significant abnormality in the visualized paranasal sinuses or mastoid air richard ls. CRANIOCERVICAL JUNCTION: No significant abnormality. ADDITIONAL FINDINGS: None. IMPRESSION: 1. 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 Signer Name: John Anthony MD Signed: 08/02/2020 6:10 PM Workstation Name: [id number]
--- NOTE | 2020-08-02 18:18 | XRay Report ---
CHEST 1 VIEW INDICATION / CLINICAL INFORMATION: near syncope, dizziness. FINDINGS: SUPPORT DEVICES: None. HEART / MEDIASTINUM: No significant abnormality. LUNGS / PLEURA: No significant pulmonary or pleural abnormality. No pneumothorax. ADDITIONAL FINDINGS: No significant additional findings. IMPRESSION: 1. No acute findings. Signer Name: Brian Bautista MD Signed: 08/02/2020 6:13 PM Workstation Name: [id number]
[2020-08-02 21:24] VITALS: BP 158/94
--- NOTE | 2020-08-03 19:42 | Electrocardiograph Report ---
[facility] Test Date: 2020-08-02 Test Time: 16:55:58 Pat Name: ALONSO PENN Department: Room: Gender: F Clerk Typist: GELACIO : 1955 Requested By: CAL WALDRON Order Number: [id number] Reading MD: Jaquan Oneill Measurements Intervals [place] Rate: 85 P: 57 PA: 159 QRS: -22 QRSD: 68 T: 58 QT: QTc: 0 Interpretive Statements Sinus rhythm Possible Inferior infarct, old Anteroseptal infarct, age indeterminate No previous ECG available for comparison Electronically Signed On 08-03-2020 19:41:29 EDT by Jaquan Oneill
== END 2020-08-02 21:10 | disposition home or self-care (01) ==
LOC: ED 16:38
DX: E86.0 Dehydration (principal); R55 Syncope and collapse; R51.9 Headache, unspecified; R42 Dizziness and giddiness; R53.81 Other malaise; I10 Essential (primary) hypertension; E11.9 Type 2 diabetes mellitus without complications; F17.200 Nicotine dependence, unspecified, uncomplicated; Z79.4 Long term (current) use of insulin; Z79.899 Other long term (current) drug therapy
CPT/HCPCS: 36415; 70450; 71045; 80048; 81001; 85025; 93005; 96360; 99284; J7030

== ENCOUNTER 2021-10-26 17:10 | Emergency (ER) | payer BC, OTHER ==
[2021-10-26] MEDS ORDERED: ASPIRIN 325 MG TAB PO ONE (18:09)
--- NOTE | 2021-10-26 18:56 | XRay Report ---
CHEST 2 VIEWS INDICATION / CLINICAL INFORMATION: syncope. COMPARISON: 08/02/2020 FINDINGS: SUPPORT DEVICES: None. HEART / MEDIASTINUM: No significant abnormality. LUNGS / PLEURA: No significant pulmonary or pleural abnormality. No pneumothorax. ADDITIONAL FINDINGS: No significant additional findings. IMPRESSION: 1. No acute findings. Signer Name: Bala Alfaro MD Signed: 10/26/2021 6:52 PM Workstation Name: [id number]
[2021-10-26 19:05] LABS: Basophils % (Auto) 0.5 % (0.0-1.8); Eosinophils # (Auto) 0.2 K/mm3 (0.0-0.4); Eosinophils % (Auto) 2.1 % (0.0-4.3); Hematocrit 46.2 % (30.3-42.9); Lymphocytes # (Auto) 3.5 K/mm3 (1.2-5.4); Lymphocytes % (Auto) 39.7 % (13.4-35.0); Mean Corpuscular HGB Conc 32 % (30-34); Mean Corpuscular Volume 94 fl (79-97); Monocytes # (Auto) 1.1 K/mm3 (0.0-0.8); Monocytes % (Auto) 11.9 % (0.0-7.3); Platelet Count 167 K/mm3 (140-440); Red Blood Count 4.91 M/mm3 (3.65-5.03); Red Cell Distribution Width 13.9 % (13.2-15.2)
[2021-10-26 19:31] LABS: Alanine Aminotransferase 13 units/L (7-56); Albumin 4.8 g/dL (3.9-5); BUN/Creatinine Ratio 17; Blood Urea Nitrogen 20 mg/dL (7-17); Calcium 9.3 mg/dL (8.4-10.2); Hemolysis Index 72
--- NOTE | 2021-10-27 08:49 | Emergency Department Report ---
ED Dizziness HPI - General Chief Complaint: Syncope Stated Complaint: FAINT Time Seen by Provider: 10/27/21 08:33 Source: patient, family Mode of arrival: Ambulatory Limitations: No Limitations - History of Present Illness Initial Comments: Patient is 66-year-old female with history of diabetes presenting to ED with complaint of periods of dizziness/lightheadedness over the past several days. She denies any syncopal events however states that she did have to grab onto something to prevent herself from falling at times. States these episodes usually occur with changes in position such as getting out of bed. - Related Data Home Medications Medication Instructions Recorded Confirmed Last Taken Spironolactone [Aldactone] 50 mg PO DAILY 02/09/18 08/02/20 04/22/18 metFORMIN [Glucophage] 500 mg PO BID 02/09/18 08/02/20 04/22/18 Clotrimazole-Betamethasone Lotion 1 1000units TP BID 08/02/20 08/02/20 Unknown Docusate Sodium [Stool Softener] 100 mg PO QDAY 08/02/20 08/02/20 Unknown Insulin Glargine,Hum.rec.anlog 25 unit SQ QHS 08/02/20 08/02/20 Unknown [Lantus Solostar] Valsartan-Hctz 320-25 mg Tab 1 tab PO QDAY 08/02/20 08/02/20 Unknown Previous Rx's Medication Instructions Recorded Last Taken Type Pantoprazole [Protonix] 40 mg PO BID #60 tablet 04/26/18 Unknown Rx Meclizine [Antivert] 25 mg PO TID PRN #14 10/27/21 Unknown Rx Allergies Allergy/AdvReac Type Severity Reaction Status Date / Time No Known Allergies Allergy Verified 10/27/21 08:36 ED Review of Systems ROS: Stated complaint: FAINT Other details as noted in HPI Constitutional: denies: chills, fever Respiratory: denies: cough, shortness of breath, wheezing Cardiovascular: denies: chest pain, palpitations Gastrointestinal: denies: abdominal pain, nausea, diarrhea Genitourinary: denies: urgency, dysuria, discharge Musculoskeletal: denies: back pain, joint swelling, arthralgia Skin: denies: rash, lesions Neurological: vertigo. denies: headache, weakness, paresthesias Psychiatric: denies: anxiety, depression ED Past Medical Hx - Past Medical History Previous Medical History?: Yes Hx Hypertension: Yes Hx Congestive Heart Failure: No Hx Diabetes: Yes Hx Deep Vein Thrombosis: No Hx of Cancer: Yes Hx Asthma: No Hx COPD: No Hx HIV: No Additional medical history: colon cancer 2007 - Surgical History Hx Pacemaker: No Hx Internal Defibrillator: No - Social History Smoking Status: Current Every Day Smoker Substance Use Type: None - Medications Home Medications: Home Medications Medication Instructions Recorded Confirmed Last Taken Type Spironolactone [Aldactone] 50 mg PO DAILY 02/09/18 08/02/20 04/22/18 History metFORMIN [Glucophage] 500 mg PO BID 02/09/18 08/02/20 04/22/18 History Pantoprazole [Protonix] 40 mg PO BID #60 tablet 04/26/18 08/02/20 Unknown Rx Clotrimazole-Betamethasone Lotion 1 1000units TP BID 08/02/20 08/02/20 Unknown History Docusate Sodium [Stool Softener] 100 mg PO QDAY 08/02/20 08/02/20 Unknown History Insulin Glargine,Hum.rec.anlog 25 unit SQ QHS 08/02/20 08/02/20 Unknown History [Lantus Solostar] Valsartan-Hctz 320-25 mg Tab 1 tab PO QDAY 08/02/20 08/02/20 Unknown History Meclizine [Antivert] 25 mg PO TID PRN #14 10/27/21 Unknown Rx ED Physical Exam - General Limitations: No Limitations General appearance: alert, in no apparent distress - Respiratory Respiratory exam: Present: normal lung sounds bilaterally. Absent: respiratory distress - Cardiovascular Cardiovascular Exam: Present: regular rate, normal rhythm, normal heart sounds - GI/Abdominal GI/Abdominal exam: Present: soft. Absent: distended - Rectal Rectal exam: Present: deferred - Neurological Exam Neurological exam: Present: alert, oriented X3, CN II-XII intact - Psychiatric Psychiatric exam: Present: normal affect, normal mood - Skin Skin exam: Present: warm, dry, intact, normal color ED Course Vital Signs 10/27/21 08:39 Respiratory 16 Rate O2 Sat by Pulse 98 Oximetry ED Medical Decision Making - Lab Data Result diagrams: 10/26/21 18:26 10/26/21 18:26 - EKG Data -: EKG Interpreted by Me EKG shows normal: sinus rhythm, axis, intervals, QRS complexes, ST-T waves Rate: normal - Medical Decision Making Orthostatic vital signs are negative. CBC and CMP grossly unremarkable. CT head is unremarkable. Suspect likely benign peripheral vertigo. Patient given 1 L bolus along with oral meclizine. On reassessment states her symptoms are improved. Will discharge on meclizine. Critical care attestation.: If time is entered above; I have spent that time in minutes in the direct care of this critically ill patient, excluding procedure time. ED Disposition Clinical Impression: Benign paroxysmal positional vertigo Disposition: 01 HOME / SELF CARE / HOMELESS Is pt being admited?: No Condition: Stable Instructions: Benign Positional Vertigo Additional Instructions: Please follow-up with your regular doctor within 1 week. You may return if your symptoms worsen. Time of Disposition: 10:33
[2021-10-27] MEDS ORDERED: ASPIRIN 325 MG TAB PO ONE (09:00)
[2021-10-27] MEDS ORDERED: SODIUM CHLORIDE 0.9% 1000 ML 1,000 ML IV ONE (09:07)
[2021-10-27] MEDS ORDERED: MECLIZINE 25 MG TAB PO ONE (09:07)
--- NOTE | 2021-10-27 09:49 | Cat Scan Report ---
CT BRAIN: 10/27/2021 INDICATION / CLINICAL INFORMATION: vertigo. COMPARISON: CT brain 08/02/2020 FINDINGS: BRAIN/INTRACRANIAL STRUCTURES: Unenhanced CT images of the brain were obtained and compared to the pr ior exam from 08/02/2020. There has been no change. There is no evidence of acute abnormality. Sulci are within normal limits of size and shape for a pat ient of this age. Chronic microangiopathic white matter changes are present, stable when compared to the prior exam. There is no CT evidence of acute ischemic injury, hemorrhage, or mass. There are no abnormal extra-ax ial fluid collections. EXTRACRANIAL STRUCTURES: Unremarkable. IMPRESSION: No acute abnormality. All CT scans at this location are performed using dose reduction to ALARA by means of automated expos ure control. Signer Name: Abhijeet Ruelas MD Signed: 10/27/2021 9:45 AM Workstation Name: [id number]
[2021-10-27 11:26] VITALS: BP 118/73
--- NOTE | 2021-10-29 09:48 | Electrocardiograph Report ---
[facility] Test Date: 2021-10-26 Test Time: 18:09:18 Pat Name: ALONSO PENN Department: Room: Gender: F Invasive Manager: EMMANUEL : 1955 Requested By: EMMA AKY Order Number: [id number] Reading MD: Scotty Carrillo Measurements Intervals [place] Rate: 84 P: 44 TN: 163 QRS: -32 QRSD: 79 T: 74 QT: 368 QTc: 436 Interpretive Statements Sinus rhythm nonspecific st-t Compared to ECG 08/02/2020 16:55:58 No significant changes Electronically Signed On 10-29-2021 9:48:15 EDT by Scotty Carrillo
== END 2021-10-27 11:27 | disposition home or self-care (01) ==
LOC: ED 17:10
DX: H81.10 Benign paroxysmal vertigo, unspecified ear (principal); F17.200 Nicotine dependence, unspecified, uncomplicated; I10 Essential (primary) hypertension; E11.9 Type 2 diabetes mellitus without complications
CPT/HCPCS: 36415; 70450; 71046; 80053; 84484; 85025; 93005; 96360; 99284; J7030